=== PATIENT | female | born 1955 | race Caucasian/White ===

== ENCOUNTER 2018-12-29 05:19 | Inpatient (IN) ==
--- NOTE | 2018-12-18 14:22 | PAT Medication Instructions ---
Medication Instructions Date of Service December 18, 2018 Home Medications bupropion HCl 150 mg PO QAM cholecalciferol (vitamin D3) [Vitamin D3] 5,000 unit PO QAM fluoxetine 60 mg PO HS gabapentin 300 mg PO QAM gabapentin 600 mg PO QPM hydrochlorothiazide 12.5 mg PO QAM hydroxychloroquine 400 mg PO QAM levothyroxine 75 mcg PO QAM lisinopril 10 mg PO QAM loratadine 10 mg PO QAM montelukast 10 mg PO QPM multivitamin 2 tab PO QAM omeprazole 20 mg PO QAM ASK your prescriber and surgeon hydroxychloroquine 400 mg PO QAM DO NOT take the morning of surgery cholecalciferol (vitamin D3) [Vitamin D3] 5,000 unit PO QAM hydrochlorothiazide 12.5 mg PO QAM lisinopril 10 mg PO QAM loratadine 10 mg PO QAM multivitamin 2 tab PO QAM Take morning of surgery With a small sip of water, OTHERWISE NOTHING TO EAT OR DRINK AFTER MIDNIGHT: bupropion HCl 150 mg PO QAM gabapentin 300 mg PO QAM levothyroxine 75 mcg PO QAM omeprazole 20 mg PO QAM Take evening before surgery fluoxetine 60 mg PO HS gabapentin 600 mg PO QPM loratadine 10 mg PO QAM montelukast 10 mg PO QPM Other Notes If you have any questions please call us at [phone] or [phone] or [phone] or [phone]
--- NOTE | 2018-12-18 14:25 | Anesthesiology Consultation ---
Date of Service December 18, 2018 Assessment & Plan (1) Encounter for pre-operative examination: Hx novocaine (procaine) reaction: shaking and increased peeing with novacaine after dental work. Patient subsequently had carbocaine (Mepivacaine) with dental procedures without issues. Discussed with Dr. Estrada/patient regarding option of allergy testing for further information- decision for no allergy testing prior to surgery. Discussed SAB vs. GA. Chart Review Chart Review: Patient seen in Pre Admission Testing Teaching & Discussion Pre-Anesthesia Teaching/Discussion Notes: Instructed NPO after midnight before surgery,except medications with 15 cc of water. Medication instructions provided according to the PAT guidelines. History Surgery Operation Date: 12/29/18 12:30 Proposed Procedures p Right Total Hip Replacement - Honorio Isidro MD Height/Weight Height: 5 ft 4 in Weight: 119.7 kg Allergies Allergy/AdvReac Type Severity Reaction Status Date / Time NSAIDS (Non-Steroidal Allergy Severe advised to Verified 12/18/18 14:27 Anti-Inflamma avoid d/t kidney disease adhesive Allergy Mild Rash Verified 12/07/18 08:14 latex Allergy Mild skin Verified 12/18/18 14:27 irritation nickel Allergy Mild redness Verified 12/18/18 14:27 and puffiness procaine Allergy Unknown shaking Verified 12/18/18 14:27 and increased peeing with novacaine aspirin AdvReac Mild Gastrointestinal Verified 12/07/18 08:14 Upset clarithromycin AdvReac Mild abdominal Verified 12/07/18 08:14 discomfort codeine AdvReac Unknown stomach Verified 12/18/18 14:27 burning, nervous Medications Home Medications Medication Instructions Recorded Confirmed Last Taken bupropion HCl 150 mg PO QAM 08/08/18 12/07/18 10/05/18 06:45 cholecalciferol (vitamin D3) 5,000 unit PO QAM 08/08/18 12/07/18 10/05/18 06:45 [Vitamin D3] fluoxetine 60 mg PO HS 08/08/18 12/07/18 10/04/18 22:00 gabapentin 300 mg PO QAM 08/08/18 12/07/18 10/05/18 06:45 gabapentin 600 mg PO QPM 08/08/18 12/07/18 10/04/18 22:00 hydrochlorothiazide 12.5 mg PO QAM 08/08/18 12/07/18 10/05/18 06:45 hydroxychloroquine 400 mg PO QAM 08/08/18 12/07/18 10/05/18 06:45 levothyroxine 75 mcg PO QAM 08/08/18 12/07/18 10/05/18 06:45 lisinopril 10 mg PO QAM 08/08/18 12/07/18 10/05/18 06:45 loratadine 10 mg PO QAM 08/08/18 12/07/18 10/05/18 06:45 montelukast 10 mg PO QPM 08/08/18 12/07/18 10/05/18 06:45 multivitamin 2 tab PO QAM 09/21/18 12/07/18 10/04/18 10:00 omeprazole 20 mg PO QAM 12/07/18 12/07/18 Unknown Past Medical History Medical History Asthma stable; no inhalers Depression GERD (gastroesophageal reflux disease) occasional Gastritis 09/2018 - started on PPI Hypertension Hypothyroidism Kidney disease, chronic, stage IV (GFR 15-29 ml/min) under surveillance; not on dialysis Morbid obesity Polymyalgia rheumatica on hydroxychloroquine Exercise / Class Metabolic Activity III < 4 Walking/Shop/Light housework Past Family History Family History Other Family history not known due to adoption Past Surgical History Surgical History History of appendectomy History of cholecystectomy History of colonoscopy History of dental surgery dental implants History of endometrial ablation History of esophagogastroduodenoscopy (EGD) History of laparoscopy multiple--endometriosis History of nasal polypectomy x2 History of phacoemulsification of cataract of both eyes with intraocular lens implantation History of removal of cyst LEFT FOOT History of right oophorectomy History of tonsillectomy History of total left knee replacement (TKR) x2 History of total right knee replacement (TKR) History of wisdom tooth extraction Past Anesthesia History No Family Hx of Anesthesia Complications (Limited family history knowledge) and Other "Slow to wake"; no known hx reintubation History of PONV No Hx of PONV and Hx of Motion Sickness (occasional) Social History Smoking Status: Former smoker Do You Dip or Chew Tobacco: No Smoking End Date: 1974 Hx Alcohol Use: Yes Alcohol type: other alcohol intake frequency: holidays/special occasions only Hx Substance Use: No substance use type: does not use Review of Systems Occasional reflux. Patient denies chest pain, shortness of breath, cough, wh eezing, palpitations. Physical Exam Vital Signs VITALS BP 123/94 P 57 TEMP 98.1 SP02 95%RA RESP 16 PHYSICAL Full neck and c-spine range of motion. Full TMJ range of motion. TMD 3.5 finger breaths Mallampati Score 2 Dentition: intact, several crowns all over Lungs: clear throughout to auscultation Cardiac: regular rate and rhythm, no murmurs noted Spine: normal Carotid arteries: negative bruit Extremities: no edema Testing Laboratory Results 12/18/18 15:00 PT 10.1 Seconds (9.0-12.0) 12/18/18 15:00 INR 1.0 (0.9-1.1) 12/18/18 15:00 APTT 26.3 Seconds (21.0-31.0) 12/18/18 15:00 Electrocardiogram Date: 08/08/18 SB with occasional PVC's at 54bpm. Otherwise "normal" EKG. Chest X-Ray Date: 08/08/18 Findings: + NAD
[2018-12-18 15:27] LABS: Basophils # (auto) 0.03 K/uL (0-0.2); Basophils % (auto) 0.6 %; Eosinophils # (auto) 0.15 K/uL (0-0.5); Hematocrit (blood only) 32.6 % (37-47); Hemoglobin 10.6 g/dL (12.0-16.0); Immature Granulocytes # (auto) 0.01 K/uL (0.00-0.02); Immature Granulocytes % (auto) 0.2 %; Lymphocytes # (auto) 1.44 K/uL (1.2-3.4); Mean Corpuscular Hemoglobin 27.9 pg (25-34); Mean Corpuscular Hgb Conc 32.5 g/dL (32-36); Mean Corpuscular Volume 85.8 fL (80-100); Monocytes # (auto) 0.33 K/uL (0.11-0.59); Monocytes % (auto) 6.7 %; Neutrophils % (auto) 60.5 %; Platelet Count 202 K/uL (130-400); RDW Coefficient of Variation 15.1 % (11.5-14.5); RDW Standard Deviation 47.6 fL (36.4-46.3); White Blood Count 4.96 K/uL (4.8-10.8)
[2018-12-18 15:37] LABS: Partial Thromboplastin Time 26.3 Seconds (21.0-31.0); Prothrombin Time 10.1 Seconds (9.0-12.0)
[2018-12-18 16:45] LABS: BUN Creatinine Ratio 11.7 (10-20); C Reactive Protein 0.65 mg/dl (0-0.29); Calcium 9.4 mg/dl (8.5-10.1); Est GFR (African American) 45.8; Est GFR (Non-African American) 39.5; Potassium 3.9 mmol/L (3.5-5.1)
--- NOTE | 2018-12-27 08:52 | History and Physical Report ---
DATE OF ADMISSION: 12/29/2018 CHIEF COMPLAINT: Right hip and thigh pain. HISTORY OF PRESENT ILLNESS: This is a 63-year-old female referred by my partner, Dr. Rocha, for surgical treatment of her right hip. She has a 1-year history of gradually increasing right hip pain and discomfort. It got bad enough about 5 months ago that she went to the Emergency Room for evaluation and treatment. She followed up with her primary care doctor. X-rays showed advanced hip arthritis. She continued to have persistent progressive groin and thigh pain. It hurts her all the time. The more she walks, the more it hurts. She limps more as the day goes on. She has difficulty putting her shoes and socks on. She now would like to proceed with surgical treatment. PAST MEDICAL HISTORY: Significant for: 1. Polymyalgia rheumatica. 2. Obesity with BMI of 45. 3. Depression. 4. Asthma. 5. Hypothyroidism. 6. Stage IV kidney disease with a creatinine of 1.41. PAST SURGICAL HISTORY: Includes: 1. Left knee replacement done in 2006 and revision in 2008 from a fall. 2. Right knee replacement done in 2007. 3. Tonsillectomy. 4. Oophorectomy. 5. Cholecystectomy. 6. Appendectomy. 7. Laparoscopy. 8. Uterine ablation. 9. Nose surgery. ALLERGIES: ASPIRIN, WHICH CAUSES GI UPSET. ALSO DESCRIBES ALLERGIES TO CODEINE, BIAXIN, NOVOCAIN, AND NSAIDS DUE TO HER KIDNEY DISEASE - NOT A TRUE ALLERGY. SHE ALSO REPORTS SOME NICKEL ALLERGY. CURRENT MEDICINES: Include: 1. Claritin 10 mg. 2. Fluoxetine 20 mg 3 times a day. 3. Gabapentin 300 mg 3 times a day. 4. Hydroxychloroquine 200 mg twice a day. 5. Levothyroxine 75 mcg a day. 6. Lisinopril 10 mg a day. 7. Multivitamin. 8. Singulair 10 mg. 9. Wellbutrin 150 mg. 10. Omeprazole 20 mg. 11. Vitamin D3. 12. Tylenol. 13. Hydrochlorothiazide 12.5 mg a day. SOCIAL HISTORY: A 63-year-old female. She is . She does have a boyfriend who is apparently blind. Rare alcohol intake. Two children. FAMILY HISTORY: Noncontributory. REVIEW OF HISTORY: Negative for diabetes, neurologic problem, vascular problem, bleeding disorders. Denies any chest pain or shortness of breath. No history of DVT or PE. Does have this unspecified kidney disease with an elevated creatinine. PHYSICAL EXAMINATION: GENERAL: Shows a pleasant obese middle-aged female. Looks to be in reasonably good health. HEENT: Benign. NECK: Supple, no lymphadenopathy. LUNGS: Clear to auscultation. HEART: Has a regular rate and rhythm. ABDOMEN: Soft, nontender, nondistended. EXTREMITIES: Grossly neurovascularly intact except as follows: Examination of the right hip reveals patient walks with a slightly antalgic gait. Leg lengths appear clinically pretty equal. She has well-healed incisions around her knees. She does have significant pain with hip motion. She can internally rotate to neutral, which causes pain. External rotation to 25 degrees. Negative straight leg raise. X-RAYS: X-rays of the right hip were reviewed. It show advanced right hip DJD. She has complete loss of her superior joint space. Not a lot of osteophyte formation. There is some subchondral sclerosis. ASSESSMENT: A 63-year-old female with history of bilateral knee replacements in the past with advanced right hip degenerative joint disease. It has gotten significantly worse over the past year. She would like to have her hip fixed. PLAN: We are going to take her to the operating room and do right total hip replacement. The risks and benefits of this procedure were explained to the patient including but not limited to DVT, PE, , infection, neurological injury, vascular injury, bleeding problem, pain, limited range of motion, stiffness, failure to relieve her symptoms, incomplete relief of symptoms, need for further surgery in the future, fracture, leg length inequality, nerve palsy, persistent pain, etc. The patient understands and desires to proceed. Informed consent was obtained. She does have this history of polymyalgia rheumatica. We did talk about holding her lisinopril on the morning of surgery. SHE HAS A NICKEL ALLERGY and we will use implants that do not have any nickel. As far as discharge plans, she will likely need to be discharged to either rehab or custodial facility. She does have a boyfriend, but he is blind and will not be able to help her adequately. As far as DVT prophylaxis, we are going to plan on using Xarelto due to her kidney disease and limited ability to use aspirin.
[2018-12-29] MEDS ORDERED: FAMOTIDINE 20 MG TAB PO SCH (06:00)
[2018-12-29] MEDS ORDERED: METOCLOPRAMIDE HCL 10 MG TABLET PO SCH (06:00)
[2018-12-29] MEDS ORDERED: SCOPOLAMINE 1.5 MG TDSY TD SCH (06:00)
[2018-12-29] MEDS ORDERED: GABAPENTIN 300 MG CAP PO SCH (06:00)
[2018-12-29] MEDS ORDERED: LR 60ML/HR IV SCH (06:00)
[2018-12-29] MEDS ORDERED: TRANEXAMIC ACID 1,000 MG **IV Pre-op IV SCH (06:00)
[2018-12-29] MEDS ORDERED: CEFAZOLIN 2000MG 2,000 MG/15 ML SYR IV SCH (06:00)
[2018-12-29] MEDS ORDERED: ACETAMINOPHEN 500 MG TAB PO SCH (06:00)
[2018-12-29] MEDS ORDERED: BUPIVACAINE 0.5 % 5 MG/1 ML PF 10ML VIAL ONE (06:23)
[2018-12-29] MEDS ORDERED: fentaNYL citrate 100 MCG/2 ML VIAL ONE (06:27)
[2018-12-29] MEDS ORDERED: MIDAZOLAM HCL 1 MG/ML 2ML VIAL ONE (06:27)
[2018-12-29] MEDS ORDERED: LIDOCAINE HCL 2% 2 ML VIAL/AMP(20MG/ML) INFIL ONE (06:31)
[2018-12-29] MEDS ORDERED: BACITRACIN INJ 50,000 UNIT VIAL ONE (06:34)
[2018-12-29] MEDS ORDERED: BUPIVACAINE/EPINEPHRINE 0.5% MPF 1:200,000 30 ML VIAL ONE (06:34)
[2018-12-29] MEDS ORDERED: MoRPHine SULFATE PF 1 MG/ML 10 ML AMP/VIAL ONE (06:44)
[2018-12-29] MEDS ORDERED: NALOXONE HCL 0.08 MG in SYRINGE 1.8 ML IV PRN (06:53)
[2018-12-29] MEDS ORDERED: NALOXONE HCL 0.4 MG/1 ML VIAL/CARP IV PRN ×2 (06:53→10:24)
[2018-12-29] MEDS ORDERED: MoRPHine SULFATE PF 1 MG/ML 10 ML AMP/VIAL INT SPINAL ONE (06:53)
[2018-12-29] MEDS ORDERED: DiphenhydrAMINE HCL 50 MG/ML VIAL IV PRN (06:53)
[2018-12-29] MEDS ORDERED: NALBUPHINE HCL INJ 10 MG/ML AMP IV PRN (06:53)
[2018-12-29] MEDS ORDERED: MEPERIDINE HCL 25 MG/ML CARP IV PRN (06:53)
[2018-12-29] MEDS ORDERED: LACTATED RINGER'S 500 ML IV PRN (06:53)
[2018-12-29] MEDS ORDERED: MoRPHine SULFATE 2 MG/ML CARP IV PRN (06:53)
[2018-12-29] MEDS ORDERED: NALOXONE HCL 1 MG in SODIUM CHLORIDE 0.9% 1000ML 1,000 ML IV PRN (06:53)
[2018-12-29] MEDS ORDERED: ONDANSETRON INJ 2 MG/ML 2 ML VIAL IV PRN (06:53)
[2018-12-29] MEDS ORDERED: ePHEDrine sulfate 50 MG/ML AMP IV PRN ×2 (06:53→06:59)
--- NOTE | 2018-12-29 06:55 | History & Physical Bridge Note ---
Date of Service December 29, 2018 History & Physical Bridge Note I have examined the patient, reviewed the History & Physical and in the interval since the performance of the History & Physical I have noted the following changes of clinical significance: no changes noted
[2018-12-29] MEDS ORDERED: ATROPINE SULFATE 0.1 MG/ML 10ML SYR IV PRN (06:59)
[2018-12-29] MEDS ORDERED: NO NARCOTICS OR SEDATIVES SCH (07:00)
[2018-12-29] MEDS ORDERED: SODIUM CHLORIDE 0.9% 1000ML 1,000 ML IV SCH (07:00)
[2018-12-29] MEDS ORDERED: DC INTRASPINAL MORPHINE SCH (07:00)
[2018-12-29] MEDS ORDERED: ONDANSETRON INJ 2 MG/ML 2 ML VIAL ONE (07:29)
[2018-12-29] MEDS ORDERED: ePHEDrine sulfate 50 MG/ML SYR ONE (07:30)
[2018-12-29] MEDS ORDERED: PROPOFOL IV EMULSION 10 MG/ML 20 ML VIAL IV ONE ×3 (08:10)
--- NOTE | 2018-12-29 08:52 | Post Operative Brief Note ---
PG Immediate Post Op with CF Date of Surgery December 29, 2018 Pre & Post Diagnosis Operation Date: 12/29/18 07:00 Pre-Op Diagnosis: Right Hip Advanced Degenerative Joint Disease Post-Op Diagnosis: Right Hip Advanced Degenerative Joint Disease Procedure Operation Date: 12/29/18 07:00 Actual Procedures p Right Total Hip Arthroplasty--Uncemented(Right) - Honorio Isidro MD Surgeon Honorio Isidro MD Residential Support Worker [place], PAC Estimated Blood Loss 300 Findings Consistent with Post-Op Diagnosis Fluids 1000 cc Specimens Specimen Description: A. Right Femoral Head Drains Ontiveros Catheter (A 16 Lao Latex-Free ontiveros catheter was inserted by ALEXA Smith, without difficulty, clear yellow urine obtained, output to be monitored by Anesthesia.) Anesthesia Type Spinal MAC Complications none Disposition Accompanied Patient To Recovery: Yes Disposition: Recovery Room
--- NOTE | 2018-12-29 09:17 | Operative Report ---
DATE OF OPERATION: 12/29/2018 SURGEON: Honorio Isidro MD. EXTRUDER TENDER: ALEXA Gonzalez. PREOPERATIVE DIAGNOSIS: Right hip degenerative joint disease. POSTOPERATIVE DIAGNOSIS: Right hip degenerative joint disease. PROCEDURE PERFORMED: Right uncemented ceramic on highly cross-linked polyethylene total hip arthroplasty. COMPLICATIONS: None. ESTIMATED BLOOD LOSS: 300 mL. FLUID REPLACEMENT: 1000 mL crystalloid fluid replacement. ANESTHESIA: Spinal. DRAINS: None. SPECIMENS: Right femoral head sent for pathology. OPERATIVE INDICATIONS: The patient is a 63-year-old morbidly obese female with a BMI of 45 who has had a 1 year history of increasing right hip pain and discomfort that has been unresponsive to conservative care. It has gotten gradually worse over time. X-rays show progressive right hip arthritis. She elected to proceed with total hip arthroplasty. OPERATIVE FINDINGS: Revealed advanced right hip DJD. She had grade 4 [id number] disease of the femoral head and acetabulum. She had a very large soft tissue envelope. Moderate-sized joint effusion. OPERATIVE IMPLANTS: Consisted of: 1. Biomet G7 size 50 mm acetabular shell. 2. 6.5 cancellous acetabular screws, one at 35 mm length and one at 25 mm length. 3. An apex hole eliminator. 4. Highly cross-linked polyethylene liner with a 50 mm outer diameter and 32 mm inner diameter. 5. DePuy Corail size 10 KLA femoral stem. 6. A +5/32 mm ceramic articular ball. OPERATIVE PROCEDURE: The patient was taken to the operating room, identified and placed on the operating table in supine position. All contact areas were appropriately padded. IV antibiotics were provided by anesthesia team. Spinal anesthetic had been implemented in the holding area. Goodman catheter was placed in sterile fashion. The patient was then placed in the left lateral decubitus position. An axillary roll was placed. Stlberg hip positioner was used for positioning. The right hip and leg were then prepped and draped in usual sterile fashion. A posterolateral approach to the right hip was then performed through a curvilinear incision centered over the greater trochanter. Sharp dissection was carried through the subcutaneous tissues down to the level of the IT band and gluteal fascia. She had a very thick soft tissue envelope about 5-6 inches thick. The IT band and gluteal fascia were then incised longitudinally in line with skin incision. The underlying greater trochanteric bursa was excised. The piriformis and external rotators were tagged and taken off the posterior aspect of the hip joint capsule. A posterior capsulotomy was then performed leaving a large flap for later repair. Hip was internally rotated and dislocated. Femoral neck osteotomy cut was made with final cut about 1 cm above the lesser trochanter. Femoral head was removed and sent for pathology. The femur was retracted anteriorly. Attention was then drawn to the acetabulum. The acetabulum labrum was excised. The pulvinar fat was excised. Sequential reaming of the acetabulum was then performed beginning with size 45 and progressing up to 49. I did just make the entrance with a 50 acetabular reamer to be able to get the cup in. A 50 mm Biomet G7 acetabular shell was then placed in about 40 degrees of lateral opening and 20 degrees of anteversion. We used the offset industrial hire sales assistant in order to get adequate anteversion and appropriate lateral opening. The cup was then fixed with two 6.5 cancellous acetabular screws. An anterior osteophyte was removed. A trial liner was placed. Attention was then drawn to the femur. The proximal femur was entered with a cookie cutter followed by canal finder. I then broached beginning with a size 8 and progressing up to a 10. We got good fit at 10. I then used a calcar reamer to smooth off the calcar. We then trialed the hip and the +5 articular ball provided full stability and full extension and external rotation and flexion to 90 degrees, internal rotation to about 60-[address] I elected to place these implants. All trial implants were removed. An apex hole eliminator was placed. Highly cross-linked polyethylene liner was placed. A DePuy Corail size 10 KLA femoral stem was impacted in position. A +5/32 mm ceramic articular ball was placed. Hip was located and once again found to be stable. Attention was then drawn toward closing. The wound was irrigated with copious amounts of pulsatile lavage solution. I did inject locally with 60 mL of 0.5% Marcaine with epinephrine. The posterior capsule and external rotators were then repaired through drill holes and the posterior trochanter with #2 TiCron suture. The IT band and gluteal fascia were then closed with #1 PDS suture in running fashion. Subcutaneous tissue was then closed with 2 layers with the deep layer #2 Vicryl suture and subcutaneous tissues with 2-0 Dexon suture in a buried interrupted fashion. Skin was closed with skin chava. Leg was then cleaned, dried and a sterile dressing of Xeroform, 4 x 4, sterile ABD pad and foam tape was applied. The patient was then transferred to the recovery room in stable condition. The patient tolerated the procedure well with no complication. All needle and sponge counts were correct at the end of the operation. I attest to the content of the Intraoperative Record and any orders documented therein. Any exception s are noted below.
--- NOTE | 2018-12-29 09:45 | XRay Report ---
AP PELVIS, CROSSTABLE LATERAL RIGHT HIP History: Right total hip arthroplasty. Degenerative arthritis. Postop. FINDINGS: The patient is status post a right total hip arthroplasty. The hardware is intact. No fract ure or dislocation. Skin chava and surgical drains are in place. IMPRESSION: Right total hip arthroplasty. No evidence for hardware complication Electronically signed by: Khai Noland M.D. 12/29/2018 9:44 AM
[2018-12-29] MEDS ORDERED: NO NSAIDS SCH (10:24)
[2018-12-29] MEDS ORDERED: METOCLOPRAMIDE HCL INJ 5 MG/ML 2 ML VIAL IV PRN (10:24)
[2018-12-29] MEDS ORDERED: BISACODYL 10 MG SUPP PR PRN (10:24)
[2018-12-29] MEDS ORDERED: ALUMINUM/MAGNESIUM SUSP 30 ML UDC PO PRN (10:24)
[2018-12-29] MEDS ORDERED: MAGNESIUM HYDROXIDE SUSP 30 ML UDC PO PRN (10:24)
[2018-12-29] MEDS ORDERED: MULTIVITAMIN TAB PO SCH (10:24)
[2018-12-29] MEDS: LORATADINE 10 MG TAB PO SCH (12:33)
[2018-12-29] MEDS: DOCUSATE SODIUM 100 MG CAP PO SCH ×2 (12:33→20:58)
[2018-12-29] MEDS: PANTOprazole 40 MG TAB PO SCH (12:34)
[2018-12-29] MEDS: MULTIVITAMIN TAB PO SCH (12:34)
[2018-12-29] MEDS: CHOLECALCIFEROL 1,000 UNITS TAB PO SCH (12:34)
[2018-12-29] MEDS: LEVOTHYROXINE SODIUM 75 MCG TABLET PO SCH (13:08)
[2018-12-29] MEDS: BuPROPion SR 150 MG TABCR PO SCH (13:08)
[2018-12-29] MEDS: SODIUM CHLORIDE 0.9% 1000ML 1,000 ML IV SCH ×2 (13:09→19:56)
[2018-12-29] MEDS: ACETAMINOPHEN 500 MG TAB PO SCH ×4 (13:12→21:01)
[2018-12-29] MEDS: HYDROXYCHLOROQUINE SULFATE 200 MG TAB PO SCH (13:12)
[2018-12-29] MEDS: hydroCHLOROthiazide 25 MG TAB PO SCH (13:13)
[2018-12-29] MEDS: CEFAZOLIN 2000MG 2,000 MG/15 ML SYR IV SCH ×2 (14:06→21:23)
[2018-12-29] MEDS: LISINOPRIL 10 MG TAB PO SCH (14:06)
--- NOTE | 2018-12-29 14:16 | Progress Note ---
DATE: 12/29/2018 SUBJECTIVE: A 63-year-old female postop from a right hip replacement. She is doing pretty well. Not having any pain yet. No chest pain or shortness of breath. Not feeling dizzy or lightheaded. OBJECTIVE: VITAL SIGNS: Temperature 36.3. Vital signs stable. GENERAL: Shows a pleasant, middle-aged female. She is sitting up in bed and talking to family. LUNGS: Clear to auscultation. HEART: Has a regular rate and rhythm. ABDOMEN: Soft, nontender, nondistended. EXTREMITIES: Grossly neurovascularly intact except as follows: Examination of the right hip and leg reveals the dressing to be clean, dry and intact. Her leg lengths are equal. Hip is located. She can dorsiflex and plantarflex her foot appropriately. She is neurologically intact. X-RAYS: X-rays of the right hip from recovery room are reviewed. She has a right uncemented total hip replacement. Components looked to be in good position. No signs of problems. ASSESSMENT: A 63-year-old white female postoperative from right hip replacement, doing well. Pain is controlled. Hip is located. She is neurologically intact. PLAN: 1. DVT prophylaxis with thigh high TEDs, SCDs, and we are going to start Xarelto 24 hours postop due to her ASPIRIN ALLERGY and altered kidney function. 2. PT/OT. Weight bear as tolerated. Right total hip protocol. 3. Pain control, doing well with current pain regimen. 4. IV antibiotics x24 hours. 5. Disposition: Plan to discharge. We will see how she does in rehab. She does not have a real good social situation, I think she is best to go to a rehab or a penitentiary facility. We will see how she is getting around and what arrangements they can make whether she goes home with home health.
[2018-12-29] MEDS ORDERED: TRANEXAMIC ACID 1,000 MG in 0.9 % SODIUM CHLORIDE 100 ML IV SCH (15:00)
--- NOTE | 2018-12-29 15:15 | Anesthesiology Progress Note ---
Date of Service December 29, 2018 Anesthesia Post Procedure Vital Signs Vital Signs: Temp Pulse Pulse Resp BP Pulse Ox Pulse Ox 12/29/18 14:04 18 100 12/29/18 13:15 61 18 109/64 12/29/18 13:00 16 12/29/18 12:13 57 L 16 107/66 12/29/18 11:49 14 12/29/18 11:19 55 L 16 128/68 12/29/18 10:46 54 L 16 112/65 12/29/18 10:15 36.3 C L 55 L 12 105/68 100 12/29/18 09:55 36.2 C L 59 L 13 124/53 L 12/29/18 09:45 36.1 C L 57 L 13 140/60 12/29/18 09:35 57 L 15 140/60 12/29/18 09:25 60 12 136/57 L 12/29/18 09:15 64 13 130/54 L 12/29/18 09:05 67 14 127/61 12/29/18 08:55 36.3 C L 68 13 108/73 12/29/18 05:57 37.1 C 65 18 141/67 H 97 Pain Intensity Right Hip: Pain Intensity: 0 Transfer of Care Handoff Completed per policy Notes Mental Status: alert / awake / arousable and participated in evaluation Patient Amnestic to Procedure: Yes Nausea / Vomiting: adequately controlled Pain: adequately controlled Airway Patency, RR, SpO2: stable & adequate BP & HR: stable & adequate Hydration State: stable & adequate Neuraxial Anesthesia: was administered and sensory block is resolving Anesthetic Complications: no major complications apparent and Pt Satisfied with anesthetic care
[2018-12-29] MEDS: CHECK SCOPOLAMINE PATCH PLACEMENT SCH (15:23)
[2018-12-29] MEDS: FERROUS GLUCONATE 324 MG TAB PO SCH (16:19)
[2018-12-29] MEDS: ASCORBIC ACID 500 MG TAB PO SCH (16:19)
[2018-12-29] MEDS: GABAPENTIN 600 MG TAB PO SCH (20:58)
[2018-12-29] MEDS: SENNA 8.6 MG TAB PO SCH (20:58)
[2018-12-29] MEDS: FLUOXETINE HCL 20 MG CAP PO SCH (20:59)
[2018-12-29] MEDS: MONTELUKAST SODIUM 10 MG TABLET PO SCH (21:00)
[2018-12-30] MEDS: CHECK SCOPOLAMINE PATCH PLACEMENT SCH (00:32)
[2018-12-30] MEDS ORDERED: HYDROmorphone INJ 0.5 MG/0.5 ML SYR IV PRN (00:53)
[2018-12-30] MEDS ORDERED: ONDANSETRON INJ 2 MG/ML 2 ML VIAL IV PRN (00:53)
[2018-12-30] MEDS: OXYCODONE HCL IR 5 MG TAB (IMMEDIATE RELEASE) PO PRN (03:21)
[2018-12-30 05:37] LABS: Basophils # (auto) 0.02 K/uL (0-0.2); Basophils % (auto) 0.2 %; Eosinophils # (auto) 0.01 K/uL (0-0.5); Eosinophils % (auto) 0.1 %; Hematocrit (blood only) 28.4 % (37-47); Hemoglobin 9.2 g/dL (12.0-16.0); Immature Granulocytes # (auto) 0.03 K/uL (0.00-0.02); Immature Granulocytes % (auto) 0.3 %; Lymphocytes # (auto) 1.16 K/uL (1.2-3.4); Lymphocytes % (auto) 11.8 %; Mean Corpuscular Hemoglobin 28.1 pg (25-34); Mean Corpuscular Hgb Conc 32.4 g/dL (32-36); Mean Corpuscular Volume 86.9 fL (80-100); Mean Platelet Volume 10.9 fL (7.4-10.4); Monocytes # (auto) 0.79 K/uL (0.11-0.59); Neutrophils # (auto) 7.82 K/uL (1.4-6.5); Neutrophils % (auto) 79.6 %; Platelet Count 183 K/uL (130-400); RDW Coefficient of Variation 14.5 % (11.5-14.5); Red Blood Count 3.27 M/uL (4.2-5.4); White Blood Count 9.83 K/uL (4.8-10.8)
[2018-12-30] MEDS: ACETAMINOPHEN 500 MG TAB PO SCH ×3 (05:38→21:34)
[2018-12-30] MEDS: LEVOTHYROXINE SODIUM 75 MCG TABLET PO SCH (05:39)
[2018-12-30 06:03] LABS: BUN Creatinine Ratio 16.9 (10-20); Calcium 8.7 mg/dl (8.5-10.1); Creatinine Clr Calc Pharmacy 40.7 ml/min; Est GFR (African American) 34.8; Potassium 4.3 mmol/L (3.5-5.1)
--- NOTE | 2018-12-30 08:06 | Anesthesiology Progress Note ---
Date of Service December 30, 2018 Anesthesia Post Procedure Vital Signs Vital Signs: Temp Pulse Pulse Resp BP Pulse Ox Pulse Ox 12/30/18 06:57 37.6 C H 67 18 131/66 98 12/30/18 06:56 18 97 12/30/18 03:16 37.7 C H 77 16 132/67 97 12/30/18 01:30 16 97 12/30/18 00:30 16 96 12/29/18 23:30 16 99 12/29/18 23:27 37.4 C 72 16 121/56 L 99 12/29/18 21:28 16 100 12/29/18 19:23 16 100 12/29/18 18:39 16 99 12/29/18 17:27 16 12/29/18 16:35 16 12/29/18 15:27 18 100 12/29/18 15:24 36.6 C 61 18 172/80 H 12/29/18 14:04 18 12/29/18 13:15 61 18 109/64 12/29/18 13:00 16 12/29/18 12:13 57 L 16 107/66 12/29/18 11:49 14 12/29/18 11:19 55 L 16 128/68 12/29/18 10:46 54 L 16 112/65 12/29/18 10:15 36.3 C L 55 L 12 105/68 100 12/29/18 09:55 36.2 C L 59 L 13 124/53 L 12/29/18 09:45 36.1 C L 57 L 13 140/60 12/29/18 09:35 57 L 15 140/60 12/29/18 09:25 60 12 136/57 L 12/29/18 09:15 64 13 130/54 L 12/29/18 09:05 67 14 127/61 12/29/18 08:55 36.3 C L 68 13 108/73 100 Pain Intensity Right Hip: Pain Intensity: 3 Notes Mental Status: alert / awake / arousable and participated in evaluation Patient Amnestic to Procedure: Yes Nausea / Vomiting: adequately controlled Pain: adequately controlled Airway Patency, RR, SpO2: stable & adequate Hydration State: stable & adequate Neuraxial Anesthesia: was administered and sensory block is resolving Anesthetic Complications: no major complications apparent and Pt Satisfied with anesthetic care
[2018-12-30] MEDS: PANTOprazole 40 MG TAB PO SCH (08:52)
[2018-12-30] MEDS: LORATADINE 10 MG TAB PO SCH (08:53)
[2018-12-30] MEDS: FERROUS GLUCONATE 324 MG TAB PO SCH ×2 (08:53→18:51)
[2018-12-30] MEDS: DOCUSATE SODIUM 100 MG CAP PO SCH ×2 (08:53→21:34)
[2018-12-30] MEDS: CHOLECALCIFEROL 1,000 UNITS TAB PO SCH (08:54)
[2018-12-30] MEDS: GABAPENTIN 300 MG CAP PO SCH (08:54)
[2018-12-30] MEDS: MULTIVITAMIN TAB PO SCH (08:54)
[2018-12-30] MEDS: hydroCHLOROthiazide 25 MG TAB PO SCH (08:55)
[2018-12-30] MEDS: RIVAROXABAN 10 MG TABLET PO SCH (08:55)
[2018-12-30] MEDS: HYDROXYCHLOROQUINE SULFATE 200 MG TAB PO SCH (08:56)
[2018-12-30] MEDS: LISINOPRIL 10 MG TAB PO SCH (08:56)
[2018-12-30] MEDS: BuPROPion SR 150 MG TABCR PO SCH (08:56)
[2018-12-30] MEDS: ASCORBIC ACID 500 MG TAB PO SCH ×2 (08:57→18:51)
[2018-12-30] MEDS: TAPENTADOL HCL ER 50 MG TABCR PO SCH ×2 (08:58→21:33)
--- NOTE | 2018-12-30 15:35 | Progress Note ---
DATE: 12/30/2018 SUBJECTIVE: A 63-year-old female postop day #1 from right hip replacement. She is doing reasonably well. A bit more painful today. Therapy went okay, but realizes she needs some help. No chest pain or shortness of breath. Not feeling dizzy or lightheaded. OBJECTIVE: VITAL SIGNS: Temperature 36.7. Vital signs stable. GENERAL: Shows a pleasant, middle-aged female. She is sitting up in her bedside chair, looks pretty comfortable. EXTREMITIES: Examination of the right hip reveals the leg lengths to be equal. Dressing is clean, dry and intact. Thigh is soft and supple. She is neurologically intact. LABORATORY DATA: Hemoglobin 9.2. Hematocrit 28.4. Electrolytes are relatively stable. Creatinine is slightly elevated at 1.77 with some chronic renal insufficiency. ASSESSMENT: A 63-year-old female postop day #1 from right hip replacement, doing pretty well. Pain has been reasonably well controlled. I think she is realizing she is going to need some help and likely need to go to rehab or shelter facility. Creatinine is a little bit elevated, but she has some underlying renal insufficiency. She is anemic, but without symptoms. PLAN: 1. DVT prophylaxis including thigh-high TEDs, SCDs, and Xarelto for 1 month. 2. PT/OT. Weight bear as tolerated. Right total hip protocol. 3. Pain control, doing okay with current pain regimen. 4. Anemia. She is asymptomatic. Will continue iron supplementation. 5. Disposition: She is going to likely need a rehab or shelter facility to stay. Social service is working on that.
[2018-12-30] MEDS: GABAPENTIN 600 MG TAB PO SCH (21:34)
[2018-12-30] MEDS: SENNA 8.6 MG TAB PO SCH (21:34)
[2018-12-30] MEDS: FLUOXETINE HCL 20 MG CAP PO SCH (21:35)
[2018-12-30] MEDS: MONTELUKAST SODIUM 10 MG TABLET PO SCH (21:36)
[2018-12-31] MEDS: ACETAMINOPHEN 500 MG TAB PO SCH ×3 (05:38→21:35)
[2018-12-31] MEDS: LEVOTHYROXINE SODIUM 75 MCG TABLET PO SCH (05:38)
[2018-12-31 07:07] LABS: Basophils # (auto) 0.02 K/uL (0-0.2); Basophils % (auto) 0.2 %; Eosinophils # (auto) 0.01 K/uL (0-0.5); Eosinophils % (auto) 0.1 %; Hematocrit (blood only) 27.1 % (37-47); Hemoglobin 8.8 g/dL (12.0-16.0); Immature Granulocytes # (auto) 0.03 K/uL (0.00-0.02); Immature Granulocytes % (auto) 0.3 %; Lymphocytes # (auto) 0.87 K/uL (1.2-3.4); Lymphocytes % (auto) 7.9 %; Mean Corpuscular Hemoglobin 27.7 pg (25-34); Mean Corpuscular Hgb Conc 32.5 g/dL (32-36); Mean Corpuscular Volume 85.2 fL (80-100); Monocytes # (auto) 1.09 K/uL (0.11-0.59); Monocytes % (auto) 9.9 %; Neutrophils # (auto) 8.98 K/uL (1.4-6.5); Neutrophils % (auto) 81.6 %; Platelet Count 158 K/uL (130-400); RDW Coefficient of Variation 14.2 % (11.5-14.5); RDW Standard Deviation 44.9 fL (36.4-46.3); Red Blood Count 3.18 M/uL (4.2-5.4)
[2018-12-31 07:35] LABS: BUN Creatinine Ratio 15.7 (10-20); Calcium 8.9 mg/dl (8.5-10.1); Creatinine Clr Calc Pharmacy 50.7 ml/min; Est GFR (African American) 45.4; Est GFR (Non-African American) 39.2; Potassium 3.8 mmol/L (3.5-5.1)
--- NOTE | 2018-12-31 08:35 | Progress Note ---
DATE: 12/31/2018 SUBJECTIVE: A 63-year-old white female postop day #2 from right hip replacement. Doing a little bit better today. Less pain. Feels just more with it. No chest pain or shortness of breath. Not feeling dizzy or lightheaded. OBJECTIVE: VITAL SIGNS: Temperature 37.6. Vital signs stable. GENERAL: Physical examination shows a pleasant, middle-aged female. She is lying in bed, looks reasonably comfortable. EXTREMITIES: Examination of the right hip and leg reveals the leg lengths to be equal. Hip incision and dressing is clean, dry and intact. Thigh is soft and supple. Hip is located. She is neurologically intact. LABORATORY DATA: Labs are pending. ASSESSMENT: A 63-year-old white female postoperative day #2 from right hip replacement, doing reasonably well. Pain is controlled. She is having trouble mobilizing due to her large size. PLAN: 1. DVT prophylaxis including thigh-high TEDs, SCDs, and Xarelto for a month. 2. PT/OT. Weight bear as tolerated. Right total hip protocol. 3. Pain control, doing pretty well with current pain regimen. 4. Chronic renal insufficiency. Labs are pending. We will encourage p.o. intake and limit NSAIDs. 5. Disposition: She is hoping to go to a penitentiary facility. Social service is working on that.
[2018-12-31] MEDS: MULTIVITAMIN TAB PO SCH (08:58)
[2018-12-31] MEDS: PANTOprazole 40 MG TAB PO SCH (08:58)
[2018-12-31] MEDS: DOCUSATE SODIUM 100 MG CAP PO SCH ×2 (08:59→21:33)
[2018-12-31] MEDS: CHOLECALCIFEROL 1,000 UNITS TAB PO SCH (08:59)
[2018-12-31] MEDS: HYDROXYCHLOROQUINE SULFATE 200 MG TAB PO SCH (09:00)
[2018-12-31] MEDS: BuPROPion SR 150 MG TABCR PO SCH (09:00)
[2018-12-31] MEDS: ASCORBIC ACID 500 MG TAB PO SCH ×2 (09:00→17:25)
[2018-12-31] MEDS: RIVAROXABAN 10 MG TABLET PO SCH (09:00)
[2018-12-31] MEDS: LISINOPRIL 10 MG TAB PO SCH (09:01)
[2018-12-31] MEDS: hydroCHLOROthiazide 25 MG TAB PO SCH (09:01)
[2018-12-31] MEDS: LORATADINE 10 MG TAB PO SCH (09:01)
[2018-12-31] MEDS: FERROUS GLUCONATE 324 MG TAB PO SCH ×2 (09:02→18:08)
[2018-12-31] MEDS: GABAPENTIN 300 MG CAP PO SCH (09:02)
[2018-12-31] MEDS: TAPENTADOL HCL ER 50 MG TABCR PO SCH ×2 (09:06→21:32)
[2018-12-31] MEDS: OXYCODONE HCL IR 5 MG TAB (IMMEDIATE RELEASE) PO PRN (09:06)
[2018-12-31] MEDS: GABAPENTIN 600 MG TAB PO SCH (21:32)
[2018-12-31] MEDS: FLUOXETINE HCL 20 MG CAP PO SCH (21:33)
[2018-12-31] MEDS: SENNA 8.6 MG TAB PO SCH (21:34)
[2018-12-31] MEDS: MONTELUKAST SODIUM 10 MG TABLET PO SCH (21:34)
[2018-12-31] MEDS: MICONAZOLE NITRATE POWDER 43 GM EXT PRN (21:45)
[2019-01-01] MEDS: ACETAMINOPHEN 500 MG TAB PO SCH ×4 (05:20→22:06)
[2019-01-01] MEDS: LEVOTHYROXINE SODIUM 75 MCG TABLET PO SCH (05:20)
[2019-01-01 06:00] LABS: Basophils # (auto) 0.01 K/uL (0-0.2); Basophils % (auto) 0.1 %; Eosinophils # (auto) 0.24 K/uL (0-0.5); Eosinophils % (auto) 2.6 %; Hematocrit (blood only) 25.1 % (37-47); Hemoglobin 8.2 g/dL (12.0-16.0); Immature Granulocytes # (auto) 0.01 K/uL (0.00-0.02); Immature Granulocytes % (auto) 0.1 %; Lymphocytes # (auto) 1.42 K/uL (1.2-3.4); Lymphocytes % (auto) 15.7 %; Mean Corpuscular Hemoglobin 27.8 pg (25-34); Mean Corpuscular Hgb Conc 32.7 g/dL (32-36); Mean Corpuscular Volume 85.1 fL (80-100); Mean Platelet Volume 10.6 fL (7.4-10.4); Monocytes # (auto) 0.76 K/uL (0.11-0.59); Monocytes % (auto) 8.4 %; Neutrophils # (auto) 6.62 K/uL (1.4-6.5); Neutrophils % (auto) 73.1 %; Platelet Count 172 K/uL (130-400); RDW Coefficient of Variation 14.3 % (11.5-14.5); RDW Standard Deviation 44.7 fL (36.4-46.3); Red Blood Count 2.95 M/uL (4.2-5.4); White Blood Count 9.06 K/uL (4.8-10.8)
[2019-01-01] MEDS: LORATADINE 10 MG TAB PO SCH (08:28)
[2019-01-01] MEDS: ASCORBIC ACID 500 MG TAB PO SCH ×2 (08:28→17:47)
[2019-01-01] MEDS: MULTIVITAMIN TAB PO SCH (08:28)
[2019-01-01] MEDS: FERROUS GLUCONATE 324 MG TAB PO SCH ×2 (08:28→17:47)
[2019-01-01] MEDS: hydroCHLOROthiazide 25 MG TAB PO SCH (08:28)
[2019-01-01] MEDS: LISINOPRIL 10 MG TAB PO SCH (08:28)
[2019-01-01] MEDS: GABAPENTIN 300 MG CAP PO SCH (08:28)
[2019-01-01] MEDS: HYDROXYCHLOROQUINE SULFATE 200 MG TAB PO SCH (08:28)
[2019-01-01] MEDS: PANTOprazole 40 MG TAB PO SCH (08:28)
[2019-01-01] MEDS: CHOLECALCIFEROL 1,000 UNITS TAB PO SCH (08:29)
[2019-01-01] MEDS: RIVAROXABAN 10 MG TABLET PO SCH (08:29)
[2019-01-01] MEDS: BuPROPion SR 150 MG TABCR PO SCH (08:29)
[2019-01-01] MEDS: DOCUSATE SODIUM 100 MG CAP PO SCH ×2 (08:29→17:47)
[2019-01-01] MEDS: TAPENTADOL HCL ER 50 MG TABCR PO SCH ×2 (08:34→21:03)
--- NOTE | 2019-01-01 10:44 | Progress Note ---
DATE: 01/01/2019 SUBJECTIVE: A 63-year-old female postop day #3 from a right total hip replacement. She is doing pretty well. Pain is getting a little bit better daily. Function is improving. No chest pain or shortness of breath. Not feeling dizzy or lightheaded. OBJECTIVE: VITAL SIGNS: Temperature 36.9. Vital signs stable. GENERAL: Shows a pleasant, middle-aged female. She is lying in bed, looks pretty comfortable. EXTREMITIES: Examination of the right hip reveals leg lengths were equal. Dressings into place. A little bit of bloody drainage on it. Hip is located. She is neurologically intact. Thigh is soft and supple. LABORATORY DATA: Hemoglobin 8.2. Hematocrit 25.1. Electrolytes are stable. Creatinine is actually improved. ASSESSMENT: A 63-year-old female postop day #3 from a right total hip replacement, doing reasonably well. Pain is controlled. She is anemic, but without symptoms. PLAN: 1. DVT prophylaxis including thigh-high TEDs, SCDs, and Xarelto for 1 month. 2. PT/OT. She can weightbear as tolerated. Right total hip protocol. 3. Pain control, doing well with current pain regimen. 4. Anemia. She is currently asymptomatic. Continue iron supplementation. 5. Disposition: We are just waiting for placement. Hopefully get her to a rehab or long term facility today.
[2019-01-01] MEDS ORDERED: Nursing to Pharmacy Communication ONE (14:29)
[2019-01-01] MEDS: SENNA 8.6 MG TAB PO SCH (17:47)
[2019-01-01] MEDS: FLUOXETINE HCL 20 MG CAP PO SCH (21:03)
[2019-01-01] MEDS: MONTELUKAST SODIUM 10 MG TABLET PO SCH (21:03)
[2019-01-01] MEDS: GABAPENTIN 600 MG TAB PO SCH (21:03)
[2019-01-02] MEDS: LEVOTHYROXINE SODIUM 75 MCG TABLET PO SCH (05:53)
[2019-01-02] MEDS: ACETAMINOPHEN 500 MG TAB PO SCH ×3 (05:53→22:10)
[2019-01-02 05:57] LABS: Basophils # (auto) 0.01 K/uL (0-0.2); Basophils % (auto) 0.1 %; Eosinophils # (auto) 0.34 K/uL (0-0.5); Eosinophils % (auto) 5.1 %; Hematocrit (blood only) 24.1 % (37-47); Hemoglobin 7.9 g/dL (12.0-16.0); Immature Granulocytes # (auto) 0.02 K/uL (0.00-0.02); Immature Granulocytes % (auto) 0.3 %; Lymphocytes # (auto) 1.57 K/uL (1.2-3.4); Lymphocytes % (auto) 23.4 %; Mean Corpuscular Hgb Conc 32.8 g/dL (32-36); Mean Corpuscular Volume 85.5 fL (80-100); Mean Platelet Volume 10.3 fL (7.4-10.4); Monocytes # (auto) 0.59 K/uL (0.11-0.59); Monocytes % (auto) 8.8 %; Neutrophils # (auto) 4.19 K/uL (1.4-6.5); Neutrophils % (auto) 62.3 %; Platelet Count 195 K/uL (130-400); RDW Coefficient of Variation 14.3 % (11.5-14.5); Red Blood Count 2.82 M/uL (4.2-5.4); White Blood Count 6.72 K/uL (4.8-10.8)
[2019-01-02 06:35] LABS: RBC Morphology Unremarkable
--- NOTE | 2019-01-02 08:12 | Progress Note ---
DATE: 01/02/2019 SUBJECTIVE: A 63-year-old female postop day 4 from a right total hip replacement. She is doing pretty well. Pain has continued to get a little bit better daily. No chest pain or shortness of breath. Not feeling dizzy or lightheaded. Mostly just waiting for placement. OBJECTIVE: VITAL SIGNS: Temperature 36.9. Vital signs stable. GENERAL: Shows a pleasant, middle-aged female. She is lying in bed, looks reasonably comfortable. EXTREMITIES: Examination of the right hip reveals the leg to be well aligned. Dressing is clean, dry, and intact. No significant drainage. Thigh is soft and supple. She is neurologically intact. LABORATORY DATA: Hemoglobin 7.9. Hematocrit 24.1. ASSESSMENT: A 63-year-old female postop day 4 from right total hip replacement, doing pretty well. Pain is controlled. She is anemic, but asymptomatic. Continue iron supplementation. Doing well with current pain control. PLAN: 1. DVT prophylaxis including thigh-high TEDs, SCDs, and she is on Xarelto for 1 month. 2. PT/OT. Weight bear as tolerated. Right total hip protocol. 3. Pain control, doing pretty well with current pain regimen. 4. Anemia. Will continue iron supplementation. 5. Disposition: Plan to discharge to rehab/[facility] facility once approved and accepted. We are really just waiting for placement.
[2019-01-02] MEDS: BuPROPion SR 150 MG TABCR PO SCH (08:39)
[2019-01-02] MEDS: PANTOprazole 40 MG TAB PO SCH (08:39)
[2019-01-02] MEDS: MULTIVITAMIN TAB PO SCH (08:39)
[2019-01-02] MEDS: ASCORBIC ACID 500 MG TAB PO SCH ×2 (08:39→17:46)
[2019-01-02] MEDS: hydroCHLOROthiazide 25 MG TAB PO SCH (08:39)
[2019-01-02] MEDS: LISINOPRIL 10 MG TAB PO SCH (08:39)
[2019-01-02] MEDS: DOCUSATE SODIUM 100 MG CAP PO SCH ×2 (08:39→20:32)
[2019-01-02] MEDS: GABAPENTIN 300 MG CAP PO SCH (08:39)
[2019-01-02] MEDS: LORATADINE 10 MG TAB PO SCH (08:39)
[2019-01-02] MEDS: FERROUS GLUCONATE 324 MG TAB PO SCH ×2 (08:40→17:45)
[2019-01-02] MEDS: RIVAROXABAN 10 MG TABLET PO SCH (08:40)
[2019-01-02] MEDS: CHOLECALCIFEROL 1,000 UNITS TAB PO SCH (08:40)
[2019-01-02] MEDS: HYDROXYCHLOROQUINE SULFATE 200 MG TAB PO SCH (08:40)
[2019-01-02] MEDS: TAPENTADOL HCL ER 50 MG TABCR PO SCH ×2 (08:45→20:33)
[2019-01-02] MEDS: SENNA 8.6 MG TAB PO SCH (20:32)
[2019-01-02] MEDS: FLUOXETINE HCL 20 MG CAP PO SCH (20:33)
[2019-01-02] MEDS: GABAPENTIN 600 MG TAB PO SCH (20:33)
[2019-01-02] MEDS: MONTELUKAST SODIUM 10 MG TABLET PO SCH (20:34)
[2019-01-03] MEDS: ACETAMINOPHEN 500 MG TAB PO SCH ×3 (06:01→22:40)
[2019-01-03] MEDS: LEVOTHYROXINE SODIUM 75 MCG TABLET PO SCH (06:01)
--- NOTE | 2019-01-03 08:10 | Progress Note ---
DATE: 01/03/2019 SUBJECTIVE: A 63-year-old white female postop day 5 from a right total hip replacement. She is doing pretty well. Pain is controlled. Really just waiting for placement. No chest pain or shortness of breath. OBJECTIVE: VITAL SIGNS: Temperature 36.9. Vital signs stable. GENERAL: Shows a pleasant, middle-aged female. She is lying in bed, looks pretty comfortable. I had to wake her this morning. EXTREMITIES: Examination of the right hip reveals the dressing to be in place. Her leg lengths are equal. Hip is located. She is neurologically intact. Just some slight serosanguineous drainage from the incision site. ASSESSMENT: A 63-year-old white female postoperative day 5 from a total hip replacement, doing pretty well. Just waiting for placement. PLAN: 1. DVT prophylaxis including thigh-high TEDs, SCDs, and Xarelto for 1 month. 2. PT/OT. Weight bear as tolerated. Right total hip protocol. 3. Pain control, doing well with current pain regimen. 4. Anemia. She is asymptomatic. Continue iron supplementation. 5. Disposition: Plan to discharge to rehab or group home facility. We are just waiting for placement.
[2019-01-03] MEDS: TAPENTADOL HCL ER 50 MG TABCR PO SCH ×2 (08:26→21:00)
[2019-01-03] MEDS: LORATADINE 10 MG TAB PO SCH (08:26)
[2019-01-03] MEDS: FERROUS GLUCONATE 324 MG TAB PO SCH ×2 (08:26→17:31)
[2019-01-03] MEDS: MULTIVITAMIN TAB PO SCH (08:26)
[2019-01-03] MEDS: RIVAROXABAN 10 MG TABLET PO SCH (08:26)
[2019-01-03] MEDS: PANTOprazole 40 MG TAB PO SCH (08:26)
[2019-01-03] MEDS: ASCORBIC ACID 500 MG TAB PO SCH ×2 (08:26→17:31)
[2019-01-03] MEDS: hydroCHLOROthiazide 25 MG TAB PO SCH (08:26)
[2019-01-03] MEDS: LISINOPRIL 10 MG TAB PO SCH (08:26)
[2019-01-03] MEDS: CHOLECALCIFEROL 1,000 UNITS TAB PO SCH (08:27)
[2019-01-03] MEDS: BuPROPion SR 150 MG TABCR PO SCH (08:27)
[2019-01-03] MEDS: HYDROXYCHLOROQUINE SULFATE 200 MG TAB PO SCH (08:27)
[2019-01-03] MEDS: DOCUSATE SODIUM 100 MG CAP PO SCH ×3 (08:27→21:02)
[2019-01-03] MEDS: GABAPENTIN 300 MG CAP PO SCH (08:27)
[2019-01-03] MEDS: OXYCODONE HCL IR 5 MG TAB (IMMEDIATE RELEASE) PO PRN (18:47)
[2019-01-03] MEDS: SENNA 8.6 MG TAB PO SCH ×2 (20:56→21:02)
[2019-01-03] MEDS: GABAPENTIN 600 MG TAB PO SCH (20:57)
[2019-01-03] MEDS: FLUOXETINE HCL 20 MG CAP PO SCH (20:57)
[2019-01-03] MEDS: MONTELUKAST SODIUM 10 MG TABLET PO SCH (20:58)
--- NOTE | 2019-01-03 20:59 | Orthopedic Progress Note ---
Date of Service January 03, 2019 Assessment & Plan (1) Osteoarthritis of right hip: I reassured her that her incision looks good and I think she just had a little bit of hematoma which released while she was walking back from the bathroom. She still seems concerned that something might be wrong with the hip. I reassured her that that is unlikely, however I am going to send her for an x- ray of her hip. She was happy to hear that. Dr. Isidro will continue to follow her tomorrow. Present on Admission?: Yes Subjective Inocencia seen and examined at bedside this morning because a sudden right hip pain. She underwent a right total hip arthroplasty by Dr. Isidro 6 days ago. She was doing well until recently. She got up to go to the bathroom. When she was coming back from the bathroom she had a sudden increase of severe right hip pain. She is having trouble bearing weight. She feels like she had a hard ball in her right hip and it suddenly released. The nursing staff called me to evaluate and treat. Physical Exam Musculoskeletal: On physical examination of her right hip she does have a little bit of ecchymosis in the area and it seems to be extending down towards her knee. It is not excessive. She has a little bit of drainage from her incision but is just some serous drainage and not much. The incision otherwise looks good. She is having trouble putting weight on her right hip. Her leg lengths look equal. Results & Data Vital Signs (Past 12 Hours) Vital Signs Temp Pulse Resp BP BP Pulse Ox 01/03/19 20:54 60 100 01/03/19 19:42 36.8 C 61 18 143/73 H 100 01/03/19 15:06 36.8 C 60 16 117/76 99 PG Care Time/CCT Total # of Minutes Spent Total Time Spent with Patient: Total time spent is greater than 50% in coordination of care (as documented) at patient's floor/unit and/or counseling patient:
--- NOTE | 2019-01-03 22:36 | XRay Report ---
XR hip 1V RT w pelvis CLINICAL HISTORY: 63 years-old Female presenting with post-op MEETA pain. TECHNIQUE: Frontal and crosstable lateral views of the right hip were obtained. COMPARISON: 12/29/2018. FINDINGS: Redemonstration of the total right hip arthroplasty. Soft tissue emphysema has largely resolved. No p eriprosthetic fracture or lucency. Minimal osseous fragments in the surrounding soft tissues along th e right acetabulum, expected postsurgical findings. Skin chava remain in place. No malalignment. Mild to moderate degenerative changes of the left hip. Degenerative changes of the lower lumbar spine . Moderate stool burden. IMPRESSION: 1. Expected postsurgical appearance status post total right hip arthroplasty without evidence of com plication. 2. Degenerative changes of the left hip. Electronically signed by: Valente Christian M.D. 01/03/2019 10:35 PM
[2019-01-04] MEDS: ACETAMINOPHEN 500 MG TAB PO SCH ×3 (06:07→20:51)
[2019-01-04] MEDS: LEVOTHYROXINE SODIUM 75 MCG TABLET PO SCH (06:07)
--- NOTE | 2019-01-04 08:25 | XRay Report ---
RIGHT HIP 2 VIEWS CLINICAL HISTORY: Right hip pain. FINDINGS: AP and crosstable lateral views of the right hip are compared to study dated 01/03/2019. The skeletal structures are osteopenic. There is dislocation of a bipolar left hip arthroplasty, with po sterior and superior distraction of the femoral component. No fracture is seen. Overlying soft tissue edema is noted. Skin clips are consistent with recent surgery. IMPRESSION: 1. Dislocated right hip arthroplasty as above. 2. No fracture is identified. Electronically signed by: Taurus Rosales M.D. 01/04/2019 8:24 AM
[2019-01-04 08:34] LABS: Calcium 8.9 mg/dl (8.5-10.1); Creatinine Clr Calc Pharmacy 54.2 ml/min; Est GFR (African American) 49.2; Est GFR (Non-African American) 42.4; Potassium 4.1 mmol/L (3.5-5.1)
[2019-01-04 08:39] LABS: Hemoglobin 6.9 g/dL (12.0-16.0)
[2019-01-04] MEDS: hydroCHLOROthiazide 25 MG TAB PO SCH (08:54)
[2019-01-04] MEDS: LORATADINE 10 MG TAB PO SCH (08:54)
[2019-01-04] MEDS: FERROUS GLUCONATE 324 MG TAB PO SCH ×2 (08:54→20:25)
[2019-01-04] MEDS: PANTOprazole 40 MG TAB PO SCH (08:54)
[2019-01-04] MEDS: TAPENTADOL HCL ER 50 MG TABCR PO SCH ×2 (08:54→20:47)
[2019-01-04] MEDS: BuPROPion SR 150 MG TABCR PO SCH (08:54)
[2019-01-04] MEDS: CHOLECALCIFEROL 1,000 UNITS TAB PO SCH (08:54)
[2019-01-04] MEDS: MULTIVITAMIN TAB PO SCH (08:54)
[2019-01-04] MEDS: RIVAROXABAN 10 MG TABLET PO SCH (08:55)
[2019-01-04] MEDS: GABAPENTIN 300 MG CAP PO SCH (08:55)
[2019-01-04] MEDS: HYDROXYCHLOROQUINE SULFATE 200 MG TAB PO SCH (08:55)
[2019-01-04] MEDS: LISINOPRIL 10 MG TAB PO SCH (08:55)
[2019-01-04] MEDS: ASCORBIC ACID 500 MG TAB PO SCH ×2 (08:55→20:25)
[2019-01-04] MEDS: DOCUSATE SODIUM 100 MG CAP PO SCH ×2 (08:55→20:46)
[2019-01-04] MEDS ORDERED: SODIUM CHLORIDE 0.9% 250 ML IV PRN ×2 (09:08→17:27)
--- NOTE | 2019-01-04 09:37 | Progress Note ---
DATE: 01/04/2019 SUBJECTIVE: A 63-year-old female now 6 days out from right total hip replacement. She has done pretty well, but was having a little bit more pain last evening. She felt like her hip felt abnormal, had an x-ray done which was normal. She was apparently put on a bedside commode yesterday when she had a syncopal episode described by nurses. She just kind of passed out and they lowered her to the floor. She did have her leg bent a little bit abnormal. She describes increasing pain today. She was seen by Dr. Mathew earlier. There is no visible deformity. She is describing some buttock pain No chest pain. Not feeling dizzy or lightheaded now. OBJECTIVE: VITAL SIGNS: Temperature 37.0. Vital signs stable. Heart rate 65. Blood pressure is stable. GENERAL: Shows a pleasant, middle-aged female. She is lying in bed, looks reasonably comfortable. EXTREMITIES: Examination of the right hip reveals incision to be clean, dry and intact. There is no significant drainage on her dressing this morning. She has got a large soft tissue envelope. Leg lengths were equal. Hip appears located. She can dorsiflex and plantarflex her foot appropriately. She still cannot quite do a straight leg raising, could not since surgery. More pain than previously with attempted hip range of motions ASSESSMENT: A 63-year-old female now 6 days out from right total hip replacement. We are just waiting for placement. She has had this syncopal episode, but seems to be doing better now. She is on anticoagulation, which certainly makes little bit of a hematoma more likely may be a little bit more swelling in his leg. PLAN: We are going to check her H and H today as it has been kind of low. Her vital signs are stable. She is on iron supplementation. We will get an x-ray just to make sure everything is okay, but clinically it looks fine. As along as this all looks okay, we will continue to look for discharge planning. This will be based on above findings. We will continue DVT prophylaxis including thigh-high TEDs, SCDs, Xarelto. MTDD
[2019-01-04] MEDS ORDERED: LIDOCAINE HCL 2% 2 ML VIAL/AMP(20MG/ML) INFIL ONE (14:32)
[2019-01-04] MEDS ORDERED: PROPOFOL IV EMULSION 10 MG/ML 20 ML VIAL IV ONE ×2 (14:32→15:39)
[2019-01-04] MEDS ORDERED: ONDANSETRON INJ 2 MG/ML 2 ML VIAL ONE (14:32)
[2019-01-04] MEDS ORDERED: ROCURONIUM BROMIDE 10 MG/ML 5 ML VIAL ONE (14:32)
[2019-01-04] MEDS ORDERED: fentaNYL citrate 100 MCG/2 ML VIAL ONE (14:33)
--- NOTE | 2019-01-04 15:07 | History & Physical Bridge Note ---
Date of Service January 04, 2019 History & Physical Bridge Note I have examined the patient, reviewed the History & Physical and in the interval since the performance of the History & Physical I have noted the following changes of clinical significance: no changes noted Patient with dislocated Right THR. Will take to OR for closed vs open reduction of hip. Risks and benefits explained.
[2019-01-04] MEDS ORDERED: ONDANSETRON INJ 2 MG/ML 2 ML VIAL IV PRN ×2 (15:10→17:27)
[2019-01-04] MEDS ORDERED: LABETALOL HCL IV 5 MG/ML 20ML IV PRN (15:10)
[2019-01-04] MEDS ORDERED: ePHEDrine sulfate 50 MG/ML AMP IV PRN (15:10)
[2019-01-04] MEDS ORDERED: HYDROmorphone INJ 1 MG/ML SYRINGE IV PRN (15:10)
[2019-01-04] MEDS ORDERED: PHENYLEPHRINE 100MCG/ML 5ML SYR IV PRN (15:10)
[2019-01-04] MEDS ORDERED: ATROPINE SULFATE 0.1 MG/ML 10ML SYR IV PRN (15:10)
--- NOTE | 2019-01-04 15:12 | Anesthesiology Consultation ---
Date of Service January 04, 2019 Assessment & Plan (1) Encounter for pre-operative examination: Chart Review Chart Review: Acceptable Risk for Surgery and Patient NOT seen in Pre Admission Testing Consults Requested none History Surgery Operation Date: 12/29/18 07:00 Proposed Procedures p Right Total Hip Replacement - Honorio Isidro MD Operation Date: 01/04/19 07:00 Proposed Procedures p Right Dislocated Hip Closed Reduction - Honorio Isidro MD Height/Weight Height: 5 ft 4 in Weight: 116.1 kg Allergies Allergy/AdvReac Type Severity Reaction Status Date / Time NSAIDS (Non-Steroidal Allergy Severe advised to Verified 12/29/18 05:50 Anti-Inflamma avoid d/t kidney disease adhesive Allergy Mild Rash Verified 12/29/18 05:50 latex Allergy Mild skin Verified 12/29/18 05:50 irritation nickel Allergy Mild redness Verified 12/29/18 05:50 and puffiness procaine Allergy Unknown shaking Verified 12/29/18 05:50 and increased peeing with novacaine aspirin AdvReac Mild Gastrointestinal Verified 12/29/18 05:50 Upset clarithromycin AdvReac Mild abdominal Verified 12/29/18 05:50 discomfort codeine AdvReac Unknown stomach Verified 12/29/18 05:50 burning, nervous Medications Home Medications Medication Instructions Recorded Confirmed Last Taken bupropion HCl 150 mg PO QAM 08/08/18 12/07/18 12/29/18 04:30 cholecalciferol (vitamin D3) 5,000 unit PO QAM 08/08/18 12/29/18 12/28/18 11:00 [Vitamin D3] fluoxetine 60 mg PO HS 08/08/18 12/29/18 12/28/18 23:00 gabapentin 300 mg PO QAM 08/08/18 12/07/18 12/29/18 04:30 gabapentin 600 mg PO QPM 08/08/18 12/29/18 12/28/18 23:00 hydrochlorothiazide 12.5 mg PO QAM 08/08/18 12/29/18 12/28/18 11:00 hydroxychloroquine 400 mg PO QAM 08/08/18 12/29/18 12/28/18 11:00 levothyroxine 75 mcg PO QAM 08/08/18 12/07/18 12/29/18 04:30 lisinopril 10 mg PO QAM 08/08/18 12/29/18 12/28/18 11:00 loratadine 10 mg PO QAM 08/08/18 12/29/18 12/28/18 11:00 montelukast 10 mg PO QPM 08/08/18 12/29/18 12/28/18 23:00 multivitamin 2 tab PO QAM 09/21/18 12/29/18 12/28/18 11:00 omeprazole 20 mg PO QAM 12/07/18 12/07/18 12/29/18 04:30 acetaminophen [Tylenol Extra 1,000 mg PO Q8 30 Days #180 tab 12/30/18 Unknown Strength] ferrous gluconate 324 mg PO BIDM 30 Days #60 tab 12/30/18 Unknown oxycodone 5 - 10 mg PO Q6H PRN 15 Days #40 12/30/18 Unknown tab rivaroxaban [Xarelto] 10 mg PO DAILY 28 Days #28 tab 12/30/18 Unknown Active Medications Generic Name Dose Route Start Last Admin Trade Name [facility] PRN Reason Stop Dose Admin Acetaminophen 1,000 mg 01/01/19 14:45 01/04/19 06:07 Tylenol PO 01/28/19 13:59 1,000 mg Q8H LOU Administration Ascorbic Acid 500 mg 12/29/18 17:00 01/04/19 08:55 Vitamin C PO 01/28/19 16:59 500 mg BIDM LOU Administration Bupropion HCl 150 mg 12/29/18 10:24 01/04/19 08:54 Wellbutrin-Sr PO 01/28/19 10:23 150 mg QAM LOU Administration Docusate Sodium 100 mg 12/29/18 10:24 01/04/19 08:55 Colace PO 01/28/19 10:23 Not Given BID LOU Ferrous Gluconate 324 mg 12/29/18 17:00 01/04/19 08:54 Ferrous Gluconate PO 01/28/19 16:59 324 mg BIDM LOU Administration Fluoxetine HCl 60 mg 12/29/18 21:00 01/03/19 20:57 Prozac PO 01/28/19 20:59 60 mg HS LOU Administration Gabapentin 300 mg 12/30/18 09:00 01/04/19 08:55 Neurontin PO 01/29/19 08:59 300 mg QAM LOU Administration Gabapentin 600 mg 12/29/18 21:00 01/03/19 20:57 Neurontin PO 01/28/19 20:59 600 mg QPM LOU Administration Hydrochlorothiazide 12.5 mg 12/29/18 10:24 01/04/19 08:54 Hctz PO 01/28/19 10:23 12.5 mg QAM LOU Administration Hydromorphone HCl 0.5 mg 12/30/18 00:53 01/03/19 20:31 Dilaudid IV 01/13/19 00:52 0.5 mg Q4H PRN Administration Pain Hydroxychloroquine Sulfate 400 mg 12/29/18 10:24 01/04/19 08:55 Plaquenil PO 01/28/19 10:23 400 mg QAM LOU Administration Levothyroxine Sodium 75 mcg 12/29/18 10:24 01/04/19 06:07 Synthroid PO 01/28/19 10:23 75 mcg DAILYBB LOU Administration Lisinopril 10 mg 12/29/18 10:24 01/04/19 08:55 Zestril PO 01/28/19 10:23 10 mg QAM LOU Administration Loratadine 10 mg 12/29/18 10:24 01/04/19 08:54 Claritin PO 01/28/19 10:23 10 mg QAM LOU Administration Miconazole Nitrate 1 appln 12/31/18 20:42 12/31/18 21:45 Desenex EXT 01/30/19 20:41 1 appln PRN PRN Administration Affected Skin Folds Montelukast Sodium 10 mg 12/29/18 21:00 01/03/19 20:58 Singulair PO 01/28/19 20:59 10 mg QPM LOU Administration Multivitamins 1 tab 12/29/18 10:24 01/04/19 08:54 Multivitamin Tab PO 01/28/19 10:23 1 tab QAM LOU Administration Oxycodone HCl 5 - 10 mg 12/30/18 00:53 01/03/19 18:47 Roxicodone Immediate Rel PO 01/13/19 00:52 10 mg Q6H PRN Administration Pain Pantoprazole Sodium 40 mg 12/29/18 10:24 01/04/19 08:54 Protonix PO 01/28/19 10:23 40 mg QAM LOU Administration Rivaroxaban 10 mg 12/30/18 09:00 01/04/19 08:55 Xarelto PO 01/29/19 08:59 10 mg DAILY LOU Administration Sennosides 17.2 mg 12/29/18 21:00 01/03/19 21:02 Senokot PO 01/28/19 20:59 Not Given HS LOU Tapentadol 50 mg 12/30/18 09:00 01/04/19 08:54 Nucynta Er PO 01/13/19 08:59 50 mg Q12 LOU Administration Vitamin D 5,000 units 12/29/18 10:24 01/04/19 08:54 Vitamin D3 PO 01/28/19 10:23 5,000 units QAM LOU Administration NPO Date Last Intake of Fluids: 01/04/19 Time Last Intake of Fluids: 09:00 Last Intake of Fluids Comment: sipped hot tea Date Last Intake of Solids: 01/04/19 Time Last Intake of Solids: 06:00 Last Intake of Solids Comment: 2/3 slice toast with butter and jelly Past Medical History Medical History Gastritis 09/2018 - started on PPI Asthma stable; no inhalers Depression GERD (gastroesophageal reflux disease) occasional Hypertension Hypothyroidism Kidney disease, chronic, stage IV (GFR 15-29 ml/min) under surveillance; not on dialysis Morbid obesity Polymyalgia rheumatica on hydroxychloroquine Past Family History Family History Other Family history not known due to adoption Past Surgical History Surgical History History of esophagogastroduodenoscopy (EGD) History of appendectomy History of cholecystectomy History of colonoscopy History of dental surgery dental implants History of endometrial ablation History of laparoscopy multiple--endometriosis History of nasal polypectomy x2 History of phacoemulsification of cataract of both eyes with intraocular lens implantation History of removal of cyst LEFT FOOT History of right oophorectomy History of tonsillectomy History of total left knee replacement (TKR) x2 History of total right knee replacement (TKR) History of wisdom tooth extraction Past Anesthesia History "Slow to wake"; no known hx reintubation Social History Smoking Status: Former smoker Do You Dip or Chew Tobacco: No Smoking End Date: Quit 1974 Hx Alcohol Use: Yes Alcohol type: other alcohol intake frequency: other Hx Substance Use: No substance use type: does not use Physical Exam Vital Signs Last Vital Signs Temp 37.6 C H 01/04/19 14:44 Pulse 66 01/04/19 14:44 Resp 20 01/04/19 14:44 BP 129/53 L 01/04/19 14:44 Pulse Ox 98 01/04/19 14:44 Testing Laboratory Results 01/04/19 07:49 01/04/19 07:42 PT 10.1 Seconds (9.0-12.0) 12/18/18 15:00 INR 1.0 (0.9-1.1) 12/18/18 15:00 APTT 26.3 Seconds (21.0-31.0) 12/18/18 15:00 Blood Type O Negative 01/04/19 07:42 Antibody Screen NEGATIVE 01/04/19 07:42 Electrocardiogram Date: 08/08/18 SB with occasional PVC's at 54bpm. Otherwise "normal" EKG. Chest X-Ray Date: 08/08/18 Findings: + NAD
--- NOTE | 2019-01-04 15:20 | Progress Note ---
DATE: 01/04/2019 SUBJECTIVE: A 63-year-old female now 6 days out from right total hip replacement. Last evening, she had a syncopal episode and was lowered to the floor and her hip got twisted. I saw around this morning, the hip looked okay. We got an x-ray and the hip is dislocated. Now indicated for closed reduction versus open reduction. No other complaints. She does say her hip hurts more. OBJECTIVE: VITAL SIGNS: Temperature 37.6. Vital signs stable. GENERAL: Shows a pleasant, middle-aged female. She is lying in bed, looks reasonably comfortable. EXTREMITIES: Leg lengths appear pretty equal and her foot rotation is pretty normal. She can dorsiflex and plantarflex her foot appropriately. X-RAYS: X-ray of the right hip reviewed. It shows a right uncemented hip replacement. The component is dislocated. ASSESSMENT: A 63-year-old female 6 days out from a total hip replacement with a dislocated hip prosthesis. This clearly occurred during a syncopal episode. PLAN: We are going to take her to the operating room and do a closed reduction. We can do this closed, we will do it open. Hopefully, that will be the case. She is getting some blood as she is anemic. She is on Lovenox due to her renal function, inability to take aspirin. The risks and benefits of this procedure were explained to the patient including but not limited to DVT, PE, , infection, neurological injury, vascular injury, bleeding problem, pain, limited range of motion, stiffness, failure to relieve symptoms, incomplete relief of symptoms, need for further surgery in future, fracture, leg length inequality, nerve palsy, need for revision surgery. The patient understands and desires to proceed. Informed consent was obtained. DINORA
[2019-01-04 15:27] LABS: Hematocrit (blood only) 24.3 % (37-47)
[2019-01-04] MEDS ORDERED: SUCCINYLCHOLINE 100MG/5ML SYR ONE (15:52)
[2019-01-04] MEDS ORDERED: GLYCOPYRROLATE 0.2 MG/ML VIAL ONE (15:53)
[2019-01-04] MEDS ORDERED: NEOSTIGMINE METHYLSULFATE 5 MG/5 ML SYR ONE (15:53)
--- NOTE | 2019-01-04 15:59 | Post Operative Brief Note ---
PG Immediate Post Op with CF Date of Surgery January 04, 2019 Pre & Post Diagnosis Operation Date: 12/29/18 07:00 Pre-Op Diagnosis: Right Hip Advanced Degenerative Joint Disease Post-Op Diagnosis: Right Hip Advanced Degenerative Joint Disease Operation Date: 01/04/19 07:00 Pre-Op Diagnosis: dislocated Right total hip replacement Post-Op Diagnosis: dislocated Right total hip replacement Procedure Operation Date: 12/29/18 07:00 Actual Procedures p Right Total Hip Arthroplasty--Uncemented(Right) - Honorio Isidro MD Operation Date: 01/04/19 07:00 Actual Procedures p Right Dislocated Hip Closed Reduction(Right) - Honorio Isidro MD Surgeon Honorio Isidro MD Disability Case Manager ELEAZAR Huddleston Estimated Blood Loss 0 Findings Consistent with Post-Op Diagnosis Specimens Specimen Description: none per surgeon Drains Ontiveros Catheter (A 16 Norwegian Latex-Free ontiveros catheter was inserted by ALEXA Smith, without difficulty, clear yellow urine obtained, output to be monitored by Anesthesia.) Anesthesia Type General Complications none Disposition Accompanied Patient To Recovery: No Disposition: Recovery Room
[2019-01-04] MEDS ORDERED: CEFAZOLIN 3000MG/72.5 ML BAG IV SCH (16:15)
--- NOTE | 2019-01-04 16:19 | Fluoroscopy Report ---
FL hip RT 2-3V CLINICAL HISTORY: 63 years-old Female presenting with CLOSED REDUCTION RIGHT HIP. TECHNIQUE: 2 fluoroscopic image(s) recorded as part of an intraoperative procedure. COMPARISON: Plain radiographs from earlier the same day. FINDINGS/IMPRESSION: There has been interval reduction of the right femoral component dislocation at the total right hip a rthroplasty. No residual malalignment. No gross evidence of a periprosthetic fracture. Overlying skin chava remain in place. Please see surgical report for further details. Dose area product (mGy.cm^2): 54.159. Fluoroscopy time: 2 minutes 13.1 seconds. Number or time of high level fluoroscopy (HLF), digital spot, or digital subtraction images: 0. Electronically signed by: Valente Christian M.D. 01/04/2019 4:18 PM
--- NOTE | 2019-01-04 16:34 | Anesthesiology Progress Note ---
Date of Service January 04, 2019 Anesthesia Post Procedure Vital Signs Vital Signs: Temp Pulse Pulse Pulse Resp BP BP 01/04/19 16:20 64 20 139/64 01/04/19 16:12 37.0 C 65 17 137/62 01/04/19 14:44 37.6 C H 66 20 129/53 L 01/04/19 13:52 36.8 C 68 14 107/70 01/04/19 12:45 36.9 C 69 14 118/69 01/04/19 11:43 37.2 C 62 16 108/65 01/04/19 11:14 37.0 C 64 16 101/61 01/04/19 10:44 36.9 C 62 16 101/62 01/04/19 10:29 36.9 C 64 16 113/70 01/04/19 10:10 36.9 C 64 18 118/64 01/04/19 07:02 37.0 C 65 16 109/68 01/04/19 05:50 67 20 123/63 01/03/19 22:36 36.9 C 67 16 01/03/19 20:54 60 01/03/19 19:42 36.8 C 61 18 BP Pulse Ox 01/04/19 16:20 100 01/04/19 16:12 100 01/04/19 14:44 98 01/04/19 13:52 96 01/04/19 12:45 96 01/04/19 11:43 98 01/04/19 11:14 97 01/04/19 10:44 97 01/04/19 10:29 95 01/04/19 10:10 01/04/19 07:02 97 01/04/19 05:50 98 01/03/19 22:36 124/70 98 01/03/19 20:54 100 01/03/19 19:42 143/73 H 100 Pain Intensity Right Hip: Pain Intensity: 0 Transfer of Care Handoff Completed per policy Notes Mental Status: alert / awake / arousable Patient Amnestic to Procedure: Yes Nausea / Vomiting: adequately controlled Pain: adequately controlled Airway Patency, RR, SpO2: stable & adequate BP & HR: stable & adequate Hydration State: stable & adequate Anesthetic Complications: no major complications apparent and Pt Satisfied with anesthetic care
[2019-01-04] MEDS: fentaNYL citrate 100 MCG/2 ML VIAL IV PRN ×2 (16:39→16:44)
[2019-01-04] MEDS ORDERED: CEFAZOLIN 2,000 MG/15 ML IV PUSH IV ONE (16:53)
[2019-01-04] MEDS ORDERED: METOCLOPRAMIDE HCL INJ 5 MG/ML 2 ML VIAL IV PRN (17:27)
[2019-01-04] MEDS ORDERED: BISACODYL 10 MG SUPP PR PRN (17:27)
[2019-01-04] MEDS ORDERED: MAGNESIUM HYDROXIDE SUSP 30 ML UDC PO PRN (17:27)
[2019-01-04] MEDS ORDERED: NALOXONE HCL 0.4 MG/1 ML VIAL/CARP IV PRN (17:27)
[2019-01-04] MEDS ORDERED: NO NSAIDS SCH (17:27)
[2019-01-04] MEDS: SODIUM CHLORIDE 0.9% 1000ML 1,000 ML IV SCH (18:05)
[2019-01-04] MEDS: SENNA 8.6 MG TAB PO SCH (20:46)
[2019-01-04] MEDS: MONTELUKAST SODIUM 10 MG TABLET PO SCH (20:46)
[2019-01-04] MEDS: FLUOXETINE HCL 20 MG CAP PO SCH (20:47)
[2019-01-04] MEDS: GABAPENTIN 600 MG TAB PO SCH (20:47)
[2019-01-04] MEDS ORDERED: DOCUSATE SODIUM 100 MG CAP PO SCH (21:00)
[2019-01-04] MEDS ORDERED: SENNA 8.6 MG TAB PO SCH (21:00)
[2019-01-05] MEDS: CEFAZOLIN 2000MG 2,000 MG/15 ML SYR IV SCH ×3 (00:22→14:30)
--- NOTE | 2019-01-05 00:37 | Operative Report ---
DATE OF OPERATION: 01/04/2019 SURGEON: Honorio Isidro MD STARS SPECIALIST: ALEXA Banks PREOPERATIVE DIAGNOSIS: Right posterior hip dislocation, status post total hip replacement. POSTOPERATIVE DIAGNOSIS: Right posterior hip dislocation, status post total hip replacement. PROCEDURE PERFORMED: Closed reduction of right dislocated total hip arthroplasty. COMPLICATIONS: None. ESTIMATED BLOOD LOSS: Minimal. ANESTHESIA: General. SPECIMENS: None. OPERATIVE INDICATIONS: The patient is a 63-year-old female now 6 days out from a right total hip replacement. She has done well and we are just really waiting for placement. Last evening she was going to the bathroom and had a syncopal episode. She fell to the ground and was lowered to the ground and had a significant twisting injury to her hip where it collapsed. She was put back in bed. X-rays revealed a dislocated total hip arthroplasty. The patient indicated for closed reduction. OPERATIVE PROCEDURE: The patient was taken to the operating room, identified and placed on the operating table in supine position. All contact areas were appropriately padded. A general anesthetic was implemented. She was transferred to the main OR table. X-ray was brought in. We performed multiple reduction attempts. It was quite difficult to relocate her hip. Eventually with some longitudinal traction with the hip flexed about 90 degrees, I was able to apply longitudinal traction, internally rotated the leg and eventually get the hip to fall back in place. Once again, it was quite difficult. We did do this under full muscle paralysis. Final x-rays were obtained. There were no signs of fracture. The hip appeared stable and concentrically reduced. The patient was then brought out of general anesthesia and transferred to the recovery room in stable condition. The patient tolerated the procedure well with no complications and abduction pillow was placed. I attest to the content of the Intraoperative Record and any orders documented therein. Any exceptions are noted below. MTDD
[2019-01-05] MEDS: ACETAMINOPHEN 500 MG TAB PO SCH ×3 (05:03→22:11)
[2019-01-05] MEDS: LEVOTHYROXINE SODIUM 75 MCG TABLET PO SCH (05:03)
[2019-01-05] MEDS: SODIUM CHLORIDE 0.9% 1000ML 1,000 ML IV SCH (05:12)
[2019-01-05 06:08] LABS: Basophils # (auto) 0.02 K/uL (0-0.2); Basophils % (auto) 0.2 %; Eosinophils # (auto) 0.27 K/uL (0-0.5); Hematocrit (blood only) 24.8 % (37-47); Hemoglobin 8.2 g/dL (12.0-16.0); Immature Granulocytes # (auto) 0.04 K/uL (0.00-0.02); Immature Granulocytes % (auto) 0.4 %; Lymphocytes # (auto) 1.29 K/uL (1.2-3.4); Lymphocytes % (auto) 14.4 %; Mean Corpuscular Hemoglobin 28.5 pg (25-34); Mean Corpuscular Hgb Conc 33.1 g/dL (32-36); Mean Corpuscular Volume 86.1 fL (80-100); Mean Platelet Volume 9.8 fL (7.4-10.4); Monocytes # (auto) 1.08 K/uL (0.11-0.59); Neutrophils # (auto) 6.27 K/uL (1.4-6.5); Platelet Count 241 K/uL (130-400); RDW Coefficient of Variation 14.4 % (11.5-14.5); RDW Standard Deviation 45.5 fL (36.4-46.3); Red Blood Count 2.88 M/uL (4.2-5.4); White Blood Count 8.97 K/uL (4.8-10.8)
[2019-01-05 06:44] LABS: BUN Creatinine Ratio 18.3 (10-20); Calcium 8.4 mg/dl (8.5-10.1); Est GFR (African American) 47.9; Est GFR (Non-African American) 41.3
[2019-01-05] MEDS: CHOLECALCIFEROL 1,000 UNITS TAB PO SCH (08:32)
[2019-01-05] MEDS: MULTIVITAMIN TAB PO SCH (08:33)
[2019-01-05] MEDS: LORATADINE 10 MG TAB PO SCH (08:33)
[2019-01-05] MEDS: GABAPENTIN 300 MG CAP PO SCH (08:33)
[2019-01-05] MEDS: PANTOprazole 40 MG TAB PO SCH (08:33)
[2019-01-05] MEDS: HYDROXYCHLOROQUINE SULFATE 200 MG TAB PO SCH (08:34)
[2019-01-05] MEDS: ASCORBIC ACID 500 MG TAB PO SCH ×2 (08:34→17:56)
[2019-01-05] MEDS: FERROUS GLUCONATE 324 MG TAB PO SCH ×2 (08:34→17:56)
[2019-01-05] MEDS: BuPROPion SR 150 MG TABCR PO SCH (08:35)
[2019-01-05] MEDS: hydroCHLOROthiazide 25 MG TAB PO SCH (08:35)
[2019-01-05] MEDS: RIVAROXABAN 10 MG TABLET PO SCH (08:35)
[2019-01-05] MEDS: LISINOPRIL 10 MG TAB PO SCH (08:35)
[2019-01-05] MEDS: DOCUSATE SODIUM 100 MG CAP PO SCH ×2 (08:36→20:17)
[2019-01-05] MEDS: TAPENTADOL HCL ER 50 MG TABCR PO SCH ×2 (08:37→20:17)
--- NOTE | 2019-01-05 08:40 | Anesthesiology Progress Note ---
Date of Service January 05, 2019 Anesthesia Post Procedure Vital Signs Vital Signs: Temp Pulse Pulse Pulse Pulse Resp BP 01/05/19 07:34 37.1 C 65 16 01/05/19 04:30 37.0 C 66 15 01/04/19 23:27 37.6 C H 65 16 01/04/19 22:39 37.8 C H 65 16 132/70 01/04/19 21:55 37.9 C H 67 16 149/72 H 01/04/19 21:25 38 C H 69 16 146/69 H 01/04/19 20:54 69 17 142/71 H 01/04/19 20:34 37.7 C H 69 16 131/71 01/04/19 20:18 37.5 C 69 18 142/73 H 01/04/19 19:32 37.3 C 66 16 01/04/19 18:26 37 C 67 16 01/04/19 18:00 63 16 01/04/19 17:25 37 C 66 16 01/04/19 17:00 36.6 C 65 18 01/04/19 16:50 64 21 01/04/19 16:40 63 20 01/04/19 16:30 63 19 01/04/19 16:20 64 20 01/04/19 16:12 37.0 C 65 17 01/04/19 14:44 37.6 C H 66 20 01/04/19 13:52 36.8 C 68 14 107/70 01/04/19 12:45 36.9 C 69 14 118/69 01/04/19 11:43 37.2 C 62 16 108/65 01/04/19 11:14 37.0 C 64 16 101/61 01/04/19 10:44 36.9 C 62 16 101/62 01/04/19 10:29 36.9 C 64 16 113/70 01/04/19 10:10 36.9 C 64 18 118/64 BP Pulse Ox 01/05/19 07:34 144/71 H 95 01/05/19 04:30 126/74 95 01/04/19 23:27 101/59 L 94 01/04/19 22:39 94 01/04/19 21:55 97 01/04/19 21:25 96 01/04/19 20:54 99 01/04/19 20:34 97 01/04/19 20:18 97 01/04/19 19:32 132/82 100 01/04/19 18:26 141/80 H 99 01/04/19 18:00 142/81 H 100 01/04/19 17:25 134/72 100 01/04/19 17:00 133/63 95 01/04/19 16:50 125/62 95 01/04/19 16:40 134/64 96 01/04/19 16:30 151/72 H 100 01/04/19 16:20 139/64 100 01/04/19 16:12 137/62 100 01/04/19 14:44 129/53 L 98 01/04/19 13:52 96 01/04/19 12:45 96 01/04/19 11:43 98 01/04/19 11:14 97 01/04/19 10:44 97 01/04/19 10:29 95 01/04/19 10:10 Pain Intensity Right Hip: Pain Intensity: 3 Notes Mental Status: alert / awake / arousable Patient Amnestic to Procedure: Yes Nausea / Vomiting: adequately controlled Pain: adequately controlled Airway Patency, RR, SpO2: stable & adequate BP & HR: stable & adequate Hydration State: stable & adequate Anesthetic Complications: no major complications apparent
[2019-01-05] MEDS ORDERED: MULTIVITAMIN TAB PO SCH (09:00)
[2019-01-05] MEDS: MICONAZOLE NITRATE POWDER 43 GM EXT PRN (09:02)
--- NOTE | 2019-01-05 11:48 | Progress Note ---
DATE: 01/05/2019 SUBJECTIVE: A 63-year-old female now 1 week out from a total hip replacement complicated by dislocation reduced yesterday. She had a syncopal episode and fell while going to the bathroom. She is doing much better today. Pain is controlled. No chest pain or shortness of breath. Not feeling dizzy or lightheaded. OBJECTIVE: VITAL SIGNS: Temperature is 36.6. Vital signs stable. GENERAL: Shows pleasant, middle-aged female. She is sitting up in her bedside chair, looks pretty comfortable. LUNGS: Clear to auscultation. HEART: Regular rate and rhythm. ABDOMEN: Soft, nontender, nondistended. EXTREMITIES: Grossly neurovascularly intact except as follows: Examination of the right hip and leg reveal the dressing to be in place. She does have some serous drainage on the dressing. Her thigh is soft and supple. Large soft tissue envelope. Leg lengths appear equal. She can dorsiflex and plantarflex her foot appropriately. LABORATORY DATA: Hemoglobin 8.2. Hematocrit 24.8. Electrolytes are stable. Creatinine stable at 1.36. ASSESSMENT: A 63-year-old female 1 week out from a total hip replacement complicated by a fall and dislocation yesterday. She is doing much better. We were able to relocate her hip, but took some work. Her hip appears stable. She did get 2 units of blood as her hemoglobin has been low. She is on Xarelto. PLAN: 1. DVT prophylaxis including thigh-high TEDs, SCDs, and Xarelto. 2. PT/OT. Weight bear as tolerated. Right total hip protocol. 3. Pain control, doing well with current pain regimen. 4. Antibiotics. We are going to just begin some oral antibiotics for infection prophylaxis due to her serous drainage. 5. Disposition: She is to just wait for placement. If doing okay tomorrow, we hopefully can get her to a nursing home facility.
[2019-01-05] MEDS: FLUOXETINE HCL 20 MG CAP PO SCH (20:17)
[2019-01-05] MEDS: GABAPENTIN 600 MG TAB PO SCH (20:17)
[2019-01-05] MEDS: MONTELUKAST SODIUM 10 MG TABLET PO SCH (20:18)
[2019-01-05] MEDS: SENNA 8.6 MG TAB PO SCH (20:18)
[2019-01-06] MEDS: LEVOTHYROXINE SODIUM 75 MCG TABLET PO SCH (05:32)
[2019-01-06] MEDS: ACETAMINOPHEN 500 MG TAB PO SCH ×3 (05:32→22:05)
[2019-01-06 05:44] LABS: Basophils # (auto) 0.02 K/uL (0-0.2); Basophils % (auto) 0.2 %; Eosinophils # (auto) 0.58 K/uL (0-0.5); Eosinophils % (auto) 7.1 %; Hematocrit (blood only) 21.5 % (37-47); Hemoglobin 7.1 g/dL (12.0-16.0); Immature Granulocytes # (auto) 0.05 K/uL (0.00-0.02); Immature Granulocytes % (auto) 0.6 %; Lymphocytes # (auto) 1.64 K/uL (1.2-3.4); Lymphocytes % (auto) 20.1 %; Mean Corpuscular Volume 84.6 fL (80-100); Monocytes # (auto) 0.77 K/uL (0.11-0.59); Monocytes % (auto) 9.4 %; Neutrophils # (auto) 5.09 K/uL (1.4-6.5); Neutrophils % (auto) 62.6 %; Platelet Count 255 K/uL (130-400); RDW Coefficient of Variation 14.4 % (11.5-14.5); RDW Standard Deviation 44.7 fL (36.4-46.3); Red Blood Count 2.54 M/uL (4.2-5.4); White Blood Count 8.15 K/uL (4.8-10.8)
[2019-01-06 06:08] LABS: RBC Morphology Unremarkable
[2019-01-06] MEDS: ASCORBIC ACID 500 MG TAB PO SCH ×2 (07:35→17:49)
[2019-01-06] MEDS: LORATADINE 10 MG TAB PO SCH (07:35)
[2019-01-06] MEDS: DOCUSATE SODIUM 100 MG CAP PO SCH ×2 (07:35→20:26)
[2019-01-06] MEDS: PANTOprazole 40 MG TAB PO SCH (07:35)
[2019-01-06] MEDS: GABAPENTIN 300 MG CAP PO SCH (07:35)
[2019-01-06] MEDS: CHOLECALCIFEROL 1,000 UNITS TAB PO SCH (07:36)
[2019-01-06] MEDS: HYDROXYCHLOROQUINE SULFATE 200 MG TAB PO SCH (07:36)
[2019-01-06] MEDS: FERROUS GLUCONATE 324 MG TAB PO SCH ×2 (07:36→17:49)
[2019-01-06] MEDS: MULTIVITAMIN TAB PO SCH (07:37)
[2019-01-06] MEDS: BuPROPion SR 150 MG TABCR PO SCH (07:37)
[2019-01-06] MEDS: RIVAROXABAN 10 MG TABLET PO SCH (07:38)
[2019-01-06] MEDS: hydroCHLOROthiazide 25 MG TAB PO SCH (07:38)
[2019-01-06] MEDS: LISINOPRIL 10 MG TAB PO SCH (07:39)
[2019-01-06] MEDS: TAPENTADOL HCL ER 50 MG TABCR PO SCH ×2 (07:45→20:26)
[2019-01-06] MEDS ORDERED: SODIUM CHLORIDE 0.9% 250 ML IV PRN (08:22)
[2019-01-06] MEDS: cephALEXin 500 MG CAP PO SCH ×2 (09:20→20:26)
--- NOTE | 2019-01-06 12:59 | Progress Note ---
DATE: 01/06/2019 SUBJECTIVE: A 63-year-old female now 8 days out from a right uncemented total hip replacement complicated by postoperative dislocation 2 days ago when she fell. She is doing okay from the hip standpoint. Just feels kind of worn out. No chest pain or shortness of breath. Not feeling dizzy or lightheaded. OBJECTIVE: VITAL SIGNS: Temperature 36.6. Vital signs stable. GENERAL: Shows a pleasant, elderly, middle-aged female. She is sitting up in bed, and looks pretty comfortable. EXTREMITIES: Examination of the right hip does reveal the leg lengths to be equal. Hip appears located. There is continued to be serous drainage on her dressing. Just a little bit of blood at the superior aspect. Her thigh is very large, but soft. No obvious fluid collections. She can dorsiflex and plantarflex her foot appropriately. LABORATORY DATA: Hemoglobin is 7.1. Hematocrit 21.5. ASSESSMENT: A 63-year-old female with some underlying chronic renal insufficiency with morbid obesity, now 8 days out from a total hip replacement complicated by dislocation. She has done reasonably well despite this, but continued to have trouble maintaining her hemoglobin and hematocrit. She is on Xarelto. I am sure this dislocation probably added some additional bleeding. There is no obvious hematoma or blood collection, but she has got a very large thigh which makes detection difficult. I do not see any signs of active bleeding. PLAN: 1. DVT prophylaxis including thigh-high TEDs, SCDs, and will continue Xarelto. She cannot really take aspirin due to her kidney issues. 2. PT/OT. Weight bear as tolerated. 3. Pain control. She is doing well with pain control. Really not require much pain medicine. 4. Anemia. Will continue iron supplementation. I am going to give her a unit of blood today and we really need her hemoglobin stabilized before discharge. 5. Disposition: We are just going to wait for things to stabilize with her hemoglobin and hematocrit. Hopefully, things will be improved tomorrow. She is still having drainage and will cover with p.o. Keflex until the drainage stops. This is not unusual based on her size.
[2019-01-06] MEDS ORDERED: INFLUENZA ADMINISTRATION CHARGE ONE (13:45)
[2019-01-06] MEDS ORDERED: INFLUENZA VIRUS QUAD VACCINE 0.5 ML SYR IM ONE (13:45)
[2019-01-06] MEDS: FLUOXETINE HCL 20 MG CAP PO SCH (20:26)
[2019-01-06] MEDS: MONTELUKAST SODIUM 10 MG TABLET PO SCH (20:26)
[2019-01-06] MEDS: SENNA 8.6 MG TAB PO SCH (20:26)
[2019-01-06] MEDS: MICONAZOLE NITRATE POWDER 43 GM EXT PRN (20:27)
[2019-01-06] MEDS: GABAPENTIN 600 MG TAB PO SCH (20:27)
[2019-01-06 23:12] VITALS: O2SAT 97
[2019-01-07] MEDS: ACETAMINOPHEN 500 MG TAB PO SCH (05:33)
[2019-01-07] MEDS: LEVOTHYROXINE SODIUM 75 MCG TABLET PO SCH (05:33)
[2019-01-07] MEDS: CHOLECALCIFEROL 1,000 UNITS TAB PO SCH (07:38)
[2019-01-07] MEDS: PANTOprazole 40 MG TAB PO SCH (07:38)
[2019-01-07] MEDS: GABAPENTIN 300 MG CAP PO SCH (07:38)
[2019-01-07] MEDS: RIVAROXABAN 10 MG TABLET PO SCH (07:39)
[2019-01-07] MEDS: DOCUSATE SODIUM 100 MG CAP PO SCH (07:39)
[2019-01-07] MEDS: hydroCHLOROthiazide 25 MG TAB PO SCH (07:40)
[2019-01-07] MEDS: LORATADINE 10 MG TAB PO SCH (07:41)
[2019-01-07] MEDS: LISINOPRIL 10 MG TAB PO SCH (07:41)
[2019-01-07] MEDS: MULTIVITAMIN TAB PO SCH (07:41)
[2019-01-07] MEDS: HYDROXYCHLOROQUINE SULFATE 200 MG TAB PO SCH (07:41)
[2019-01-07] MEDS: BuPROPion SR 150 MG TABCR PO SCH (07:41)
[2019-01-07] MEDS: cephALEXin 500 MG CAP PO SCH (07:42)
[2019-01-07] MEDS: ASCORBIC ACID 500 MG TAB PO SCH (07:42)
[2019-01-07] MEDS: FERROUS GLUCONATE 324 MG TAB PO SCH (07:45)
[2019-01-07] MEDS: TAPENTADOL HCL ER 50 MG TABCR PO SCH (07:55)
[2019-01-07 08:01] VITALS: BP 120/72; PULSE 61; TEMP 97.9
[2019-01-07 08:01] LABS: Basophils # (auto) 0.02 K/uL (0-0.2); Basophils % (auto) 0.3 %; Eosinophils # (auto) 0.54 K/uL (0-0.5); Hematocrit (blood only) 24.2 % (37-47); Hemoglobin 8.1 g/dL (12.0-16.0); Immature Granulocytes # (auto) 0.05 K/uL (0.00-0.02); Immature Granulocytes % (auto) 0.6 %; Lymphocytes # (auto) 1.38 K/uL (1.2-3.4); Lymphocytes % (auto) 17.8 %; Mean Corpuscular Hemoglobin 28.9 pg (25-34); Mean Corpuscular Hgb Conc 33.5 g/dL (32-36); Mean Corpuscular Volume 86.4 fL (80-100); Mean Platelet Volume 9.5 fL (7.4-10.4); Monocytes # (auto) 0.78 K/uL (0.11-0.59); Monocytes % (auto) 10.1 %; Neutrophils # (auto) 4.97 K/uL (1.4-6.5); Neutrophils % (auto) 64.2 %; Platelet Count 287 K/uL (130-400); RDW Coefficient of Variation 14.5 % (11.5-14.5); RDW Standard Deviation 46.3 fL (36.4-46.3); White Blood Count 7.74 K/uL (4.8-10.8)
[2019-01-07 08:29] LABS: BUN Creatinine Ratio 24.4 (10-20); Calcium 9.3 mg/dl (8.5-10.1); Creatinine Clr Calc Pharmacy 60.5 ml/min; Est GFR (African American) 56.3; Est GFR (Non-African American) 48.5; Potassium 4.3 mmol/L (3.5-5.1)
--- NOTE | 2019-01-07 15:14 | Progress Note ---
DATE: 01/07/2019 SUBJECTIVE: A 63-year-old female now 9 days out from a right total hip replacement complicated by postoperative dislocation in the hospital after a fall. She is doing well. She is kind of still feels kind of tired. Denies any chest pain or shortness of breath. Not feeling dizzy or lightheaded. Pain is controlled. OBJECTIVE: VITAL SIGNS: Temperature 36.6. Vital signs stable. GENERAL: Shows a pleasant, middle-aged female. I did wake her this morning. She looks comfortable. EXTREMITIES: Examination of the right hip reveals the leg lengths to be equal. Dressings in place and just been changed which are extremely dry. Swelling seems to be slightly improved from the past day or two. She is neurologically intact. LABORATORY DATA: Hemoglobin is 8.1. Hematocrit 24.2. ASSESSMENT: A 63-year-old female now 9 days out from a total hip replacement complicated by postoperative dislocation, doing reasonably well. Hip clinically looks to be doing well. She has a very large soft tissue envelope and had some drainage, but seems to be decreasing. No drainage on her dressing currently, but she just have this changed within the past hour or two. Her hemoglobin now appears pretty stable. She has been asymptomatic throughout, but it has gotten a bit low. It seems stable and her vital signs are stable. PLAN: 1. DVT prophylaxis including thigh-high TEDs, SCDs, and Xarelto for 1 month. 2. PT/OT. Weight bear as tolerated. Right total hip protocol. 3. Pain control, doing well with current pain regimen. 4. Disposition: We are hoping to discharge to a senior living facility today.
== END 2019-01-07 14:40 | DRG 470 ==
LOC: ASU 05:19 → 3E 08:56

== ENCOUNTER 2019-08-16 12:42 | Observation (INO) ==
[2019-08-16] MEDS ORDERED: ACETAMINOPHEN 500 MG TAB PO STA (13:02)
--- NOTE | 2019-08-16 13:11 | Emergency Department Note ---
History of Present Illness General Chief Complaint: Abdominal Pain Stated Complaint: ABDOMINAL PAIN Time Seen by Provider: 08/16/19 12:56 Source: patient Mode of arrival: ambulatory Limitations: no limitations History of Present Illness Provider Complaint: abdominal pain Onset (ago): 10 hour(s) Pain Consistency: constant Location: LLQ and RLQ Radiation: none Migration to: no migration Severity: moderate Maximum Pain Intensity: 5 Quality: + fullness Relieved By: + nothing Exacerbated By: + nothing Context: no foreign travel and no recent antibiotic use Associated Symptoms: denies other symptoms This is a 63-year-old female who presents to the ED with a chief complaint of abdominal pain. Her pain has been present throughout the entire night. She reports it is a pressure sensation in the lower abdomen. She denies any nausea, vomiting or diarrhea or constipation. Her last normal bowel movement was yesterday. She has history of IBS. She also reports some upper arm pain that is related to her chronic polymyalgia. She states that this seems a little worse than his baseline but today seems about normal. She does have history of cholecystectomy. Home Medications Home Medications Medication Instructions Recorded Confirmed Type bupropion HCl 150 mg PO QAM 08/08/18 08/16/19 History cholecalciferol (vitamin D3) 5,000 unit PO QAM 08/08/18 08/16/19 History [Vitamin D3] fluoxetine 60 mg PO HS 08/08/18 08/16/19 History gabapentin 300 mg PO QAM 08/08/18 08/16/19 History gabapentin 600 mg PO QPM 08/08/18 08/16/19 History hydrochlorothiazide 12.5 mg PO QAM 08/08/18 08/16/19 History hydroxychloroquine 400 mg PO QAM 08/08/18 08/16/19 History levothyroxine 75 mcg PO QAM 08/08/18 08/16/19 History lisinopril 10 mg PO QAM 08/08/18 08/16/19 History loratadine 10 mg PO QAM 08/08/18 08/16/19 History montelukast 10 mg PO QPM 08/08/18 08/16/19 History multivitamin 2 tab PO QAM 09/21/18 08/16/19 History omeprazole 20 mg tablet,delayed 20 mg PO QAM #30 tab 07/02/19 08/16/19 Rx release Allergies Allergy/AdvReac Type Severity Reaction Status Date / Time NSAIDS (Non-Steroidal Allergy Severe advised to Verified 08/16/19 14:03 Anti-Inflamma avoid d/t kidney disease adhesive Allergy Mild Rash Verified 08/16/19 14:03 latex Allergy Mild skin Verified 08/16/19 14:03 irritation nickel Allergy Mild redness Verified 08/16/19 14:03 and puffiness procaine Allergy Unknown shaking Verified 08/16/19 14:03 and increased peeing with novacaine aspirin AdvReac Mild Gastrointestinal Verified 08/16/19 14:03 Upset clarithromycin AdvReac Mild abdominal Verified 08/16/19 14:03 discomfort codeine AdvReac Unknown stomach Verified 08/16/19 14:03 burning, nervous Past Med/Surg History Medical History Asthma stable; no inhalers Depression Gastritis 09/2018 - started on PPI GERD (gastroesophageal reflux disease) occasional Hypertension Hypothyroidism Kidney disease, chronic, stage IV (GFR 15-29 ml/min) under surveillance; not on dialysis Morbid obesity Polymyalgia rheumatica on hydroxychloroquine Surgical History History of appendectomy History of cholecystectomy History of colonoscopy History of dental surgery dental implants History of endometrial ablation History of esophagogastroduodenoscopy (EGD) History of laparoscopy multiple--endometriosis History of nasal polypectomy x2 History of phacoemulsification of cataract of both eyes with intraocular lens implantation History of removal of cyst LEFT FOOT History of right hip replacement (Resolved) History of right oophorectomy History of tonsillectomy History of total left knee replacement (TKR) x2 History of total right knee replacement (TKR) History of wisdom tooth extraction Family History Other Family history not known due to adoption Social History Preferred Language: Czech Communication Ability: Effective Credit Collections Rep Required: No Beliefs That Will Affect Care: None Current Living Situation: Significant Other Feels Safe at Home: Yes Smoking Status: Never smoker Second Hand Exposure: No ; Hx Alcohol Use: Yes Alcohol type: other Hx Substance Use: No Review of Systems A total of 10 systems reviewed and were otherwise negative Physical Exam Vital Signs: Vital Signs - 24 hr 08/16/19 12:51 Temperature 36.5 C Temperature Source Oral Pulse Rate 54 L Pulse Rhythm Regular Pulse Strength Normal Respiratory Rate 16 Respiratory Effort / Characteristics Non-Labored Respiratory Depth Normal Respiratory Patter n Regular Blood Pressure 154/79 H Blood Pressure Edith n 104 Blood Pressure Pos ition Sitting Pulse Oximetry 96 Oxygen Delivery Me thod Room Air Sepsis Recent Feve r Within 48 Hours No Sepsis New/Unexpla ined Change in Men rosalia Status No Sepsis Action Take n by Nursing No Action Required Physical Exam: CONSTITUTIONAL/VITAL SIGNS: Reviewed / noted above. GENERAL: Non-toxic in appearance. INTEGUMENTARY: Warm, dry, and [place]. HEAD: Normocephalic. EYES: without scleral icterus or trauma. ENT/OROPHARYNX: clear and moist. LYMPHADENOPATHY/NECK: Is supple without lymphadenopathy or meningismus. RESPIRATORY: Lungs clear and equal. CARDIOVASCULAR: Regular rate and rhythm. GI/ABDOMEN: Soft and mildly tender in the lower abdomen. No organomegaly or pulsatile mass. No rebound or guarding. Normal bowel sounds. EXTREMITIES: Warm and well perfused. BACK: No CVA tenderness. NEUROLOGICAL: Intact without focal deficits. PSYCHIATRIC: normal affect. MUSCULOSKELETAL: Normally developed with good muscle tone. TRIAGE NURSING DOCUMENTATION REVIEWED. Course Administered Medications Ioversol (Optiray 320 100ml) 94 ml IV ONCE PRN PRN Reason: Interaction Checking Stop: 08/20/19 14:29 Last Admin: 08/16/19 14:30 Dose: 94 ml Documented by: [id number] Discontinued Medications Acetaminophen (Tylenol) 500 mg PO NOW STA Stop: 08/16/19 13:03 Last Admin: 08/16/19 13:20 Dose: 500 mg Documented by: [id number] Medical Decision Making Differential Diagnosis Differential considered: pancreatitis, hepatitis, AAA, UTI, pyelonephritis, kidney stones, appendicitis, diverticulitis, shingles, bowel obstruction, mesenteric ischemia, intussusception,hernia, testicular torsion, ovarian torsion, ruptured ovarian cyst,ectopic , . Medical Records Attestation: I reviewed the patient's medical records. Home Medications Current Medication List: was personally reviewed by me Laboratory Data Attestation: I reviewed the patient's lab results. Result diagrams: 08/16/19 13:20 08/16/19 13:20 Lab Results 08/16/19 08/16/19 08/16/19 Range/Units 13:20 13:20 13:25 WBC 6.14 (4.8-10.8) K/uL RBC 4.13 L (4.2-5.4) M/uL Hgb 11.8 L (12.0-16.0) g/dL Hct 36.0 L (37-47) % MCV 87.2 (80-100) fL MCH 28.6 (25-34) pg MCHC 32.8 (32-36) g/dL RDW Std Deviation 50.9 H (36.4-46.3) fL RDW Coeff of Flako 15.7 H (11.5-14.5) % Plt Count 212 (130-400) K/uL MPV 11.0 H (7.4-10.4) fL Immature Gran % (Auto) 0.2 % Neut % (Auto) 66.8 % Lymph % (Auto) 21.8 % Powell % (Auto) 6.8 % Eos % (Auto) 3.9 % Baso % (Auto) 0.5 % Immature Gran # (Auto) 0.01 (0.00-0.02) K/uL Neut # (Auto) 4.10 (1.4-6.5) K/uL Lymph # (Auto) 1.34 (1.2-3.4) K/uL Powell # (Auto) 0.42 (0.11-0.59) K/uL Eos # (Auto) 0.24 (0-0.5) K/uL Baso # (Auto) 0.03 (0-0.2) K/uL Sodium 140 (136-145) mmol/L Potassium 4.1 (3.5-5.1) mmol/L Chloride 108 H (98-107) mmol/L Carbon Dioxide 27 (21-32) mmol/L Anion Gap 5.0 (3-11) BUN 26 H (7-18) mg/dl Creatinine 1.47 H (0.6-1.2) mg/dl Est Cr Clr Drug Dosing 48.4 ml/min Est GFR ( Amer) 43.6 Est GFR (Non-Af Amer) 37.6 BUN/Creatinine Ratio 17.6 (10-20) Glucose 92 (70-99) mg/dl Lactate (0.4-2.0) mmol/L Calcium 9.3 (8.5-10.1) mg/dl Total Bilirubin 0.7 (0.2-1) mg/dl AST 17 (15-37) U/L ALT 19 (12-78) U/L Alkaline Phosphatase 90 (45-117) U/L Total Protein 6.9 (6.4-8.2) gm/dl Albumin 3.3 L (3.4-5.0) gm/dl Globulin 3.6 (2.5-4.0) gm/dl Albumin/Globulin Ratio 0.9 (0.9-2) Lipase 140 (73-393) U/L Urine Color Yellow Urine Appearance Clear (Clear) Urine pH 5.0 (4.5-7.5) Ur Specific [place] 1.017 (1.000-1.030) Urine Protein Negative (Negative) Urine Glucose (UA) Negative (Negative) Urine Ketones Negative (Negative) Urine Blood Negative (Negative) Urine Nitrite Negative (Negative) Urine Bilirubin Negative (Negative) Urine Urobilinogen Negative (Negative) Ur Leukocyte Esterase Trace H (Negative) Urine WBC (Auto) 1-5 (0-5) /hpf Urine RBC (Auto) 0-4 (0-4) /hpf U Hyaline Cast (Auto) 5-10 H (0-5) /lpf U Epithel Cells (Auto) 20-30 H (0-5) /lpf Urine Bacteria (Auto) Negative (Negative) 08/16/19 Range/Units 14:24 WBC (4.8-10.8) K/uL RBC (4.2-5.4) M/uL Hgb (12.0-16.0) g/dL Hct (37-47) % MCV (80-100) fL MCH (25-34) pg MCHC (32-36) g/dL RDW Std Deviation (36.4-46.3) fL RDW Coeff of Flako (11.5-14.5) % Plt Count (130-400) K/uL MPV (7.4-10.4) fL Immature Gran % (Auto) % Neut % (Auto) % Lymph % (Auto) % Powell % (Auto) % Eos % (Auto) % Baso % (Auto) % Immature Gran # (Auto) (0.00-0.02) K/uL Neut # (Auto) (1.4-6.5) K/uL Lymph # (Auto) (1.2-3.4) K/uL Powell # (Auto) (0.11-0.59) K/uL Eos # (Auto) (0-0.5) K/uL Baso # (Auto) (0-0.2) K/uL Sodium (136-145) mmol/L Potassium (3.5-5.1) mmol/L Chloride (98-107) mmol/L Carbon Dioxide (21-32) mmol/L Anion Gap (3-11) BUN (7-18) mg/dl Creatinine (0.6-1.2) mg/dl Est Cr Clr Drug Dosing ml/min Est GFR ( Amer) Est GFR (Non-Af Amer) BUN/Creatinine Ratio (10-20) Glucose (70-99) mg/dl Lactate 0.8 (0.4-2.0) mmol/L Calcium (8.5-10.1) mg/dl Total Bilirubin (0.2-1) mg/dl AST (15-37) U/L ALT (12-78) U/L Alkaline Phosphatase (45-117) U/L Total Protein (6.4-8.2) gm/dl Albumin (3.4-5.0) gm/dl Globulin (2.5-4.0) gm/dl Albumin/Globulin Ratio (0.9-2) Lipase (73-393) U/L Urine Color Urine Appearance (Clear) Urine pH (4.5-7.5) Ur Specific [place] (1.000-1.030) Urine Protein (Negative) Urine Glucose (UA) (Negative) Urine Ketones (Negative) Urine Blood (Negative) Urine Nitrite (Negative) Urine Bilirubin (Negative) Urine Urobilinogen (Negative) Ur Leukocyte Esterase (Negative) Urine WBC (Auto) (0-5) /hpf Urine RBC (Auto) (0-4) /hpf U Hyaline Cast (Auto) (0-5) /lpf U Epithel Cells (Auto) (0-5) /lpf Urine Bacteria (Auto) (Negative) Imaging Data Radiologist's Impression: 1. Significant wall thickening of small bowel loops in the central abdomen and superior pelvis with extensive associated infiltrative changes in the small bowel mesentery and interloop fluid. Findings are concerning for moderate to severe enteritis. Ischemic etiology is not excluded though the findings could be infectious or inflammatory. Mesenteric Doppler ultrasound may be useful if the patient cannot receive contrast and ischemia is considered. 2. Small volume ascites. CT scan with IV contrast of the abdomen pelvis: IMPRESSION: 1. Preserved enhancement of the abnormal loops of small bowel with patent central arterial vasculature and patent superior mesenteric vein. Findings argue against an ischemic etiology. Infectious or inflammatory enteritis favored. Blood Pressure Blood Pressure Findings: Elevated blood pressure Blood Pressure Disposition: further management by hospitalist DEBBIE Lindquist This is a 63-year-old female who presents to the ED with a chief complaint of abdominal pain. Her pain has been present throughout the entire night. She reports it is a pressure sensation in the lower abdomen. She denies any nausea, vomiting or diarrhea or constipation. Her last normal bowel movement was yesterday. She has history of IBS. She also reports some upper arm pain that is related to her chronic polymyalgia. She states that this seems a little worse than his baseline but today seems about normal. She does have history of cholecystectomy. The patient exam reveals some mid to lower abdominal tenderness. A CT scan of the abdomen pelvis reveals moderate to severe enteritis with extensive infiltrative changes in the small bowel of the central abdomen and superior pelvis. A CT scan with contrast suggest that this is not ischemic in nature. Lactate level is normal. The patient CBC and chemistry panel was unremarkable. Slight elevation of the BUN and creatinine. Urine did not show infection. Because of the abnormal findings, the patient will require further evaluation and care to discover the cause and appropriate treatment. The patient will be seen by the hospitalist for further evaluation and care. Impression & Plan Enteritis, Abdominal pain Discharge Plan Visit Data Chief Complaint: Abdominal Pain Stated Complaint: ABDOMINAL PAIN ED Provider: Devan Ascencio Discharge Problem: Enteritis, Abdominal pain Forms Stand Alone Forms: [employer] Prescriptions Prescriptions: No Action omeprazole 20 mg tablet,delayed release (DR/EC) 20 mg PO QAM Qty: 30 RF: 5 levothyroxine 75 mcg tablet 75 mcg PO QAM RF: 0 lisinopril 10 mg tablet 10 mg PO QAM RF: 0 hydrochlorothiazide 12.5 mg capsule 12.5 mg PO QAM RF: 0 gabapentin 300 mg capsule 600 mg PO QPM RF: 0 montelukast 10 mg tablet 10 mg PO QPM RF: 0 hydroxychloroquine 200 mg tablet 400 mg PO QAM RF: 0 fluoxetine 20 mg capsule 60 mg PO HS RF: 0 bupropion HCl 150 mg tablet sustained-release 12 hr 150 mg PO QAM RF: 0 gabapentin 300 mg Capsule 300 mg PO QAM RF: 0 loratadine 10 mg Tablet 10 mg PO QAM RF: 0 cholecalciferol (vitamin D3) [Vitamin D3] 5,000 unit Tablet 5,000 unit PO QAM RF: 0 multivitamin Tablet 2 tab PO QAM RF: 0 Discharge Problem: Abdominal pain Qualifiers: Abdominal location: generalized Qualified Code(s): R10.84 - Generalized abdominal pain
[2019-08-16 13:42] LABS: Basophils # (auto) 0.03 K/uL (0-0.2); Basophils % (auto) 0.5 %; Eosinophils # (auto) 0.24 K/uL (0-0.5); Eosinophils % (auto) 3.9 %; Hemoglobin 11.8 g/dL (12.0-16.0); Immature Granulocytes # (auto) 0.01 K/uL (0.00-0.02); Immature Granulocytes % (auto) 0.2 %; Lymphocytes # (auto) 1.34 K/uL (1.2-3.4); Lymphocytes % (auto) 21.8 %; Mean Corpuscular Hemoglobin 28.6 pg (25-34); Mean Corpuscular Hgb Conc 32.8 g/dL (32-36); Mean Corpuscular Volume 87.2 fL (80-100); Monocytes # (auto) 0.42 K/uL (0.11-0.59); Monocytes % (auto) 6.8 %; Neutrophils % (auto) 66.8 %; Platelet Count 212 K/uL (130-400); RDW Coefficient of Variation 15.7 % (11.5-14.5); RDW Standard Deviation 50.9 fL (36.4-46.3); Red Blood Count 4.13 M/uL (4.2-5.4); White Blood Count 6.14 K/uL (4.8-10.8)
[2019-08-16 13:59] LABS: Appearance Urine Clear (Clear); Bacteria Urine Automated Negative (Negative); Bilirubin Urine Negative (Negative); Blood Urine Negative (Negative); Color Urine Yellow; Epithelial Cell Urine Auto 20-30 /lpf (0-5); Glucose Urine UA Negative (Negative); Ketones Urine Negative (Negative); Leukocyte Esterase Urine Trace (Negative); Nitrite Urine Negative (Negative); Protein Urine Negative (Negative); RBC Urine Automated 0-4 /hpf (0-4); Specific Gravity Urine 1.017 (1.000-1.030); Urobilinogen Urine Negative (Negative)
--- NOTE | 2019-08-16 14:01 | CT Scan Report ---
CT abd pelvis wo con CLINICAL HISTORY: 63 years-old Female presenting with LOWER ABD PAIN, right-sided pain below the [address]. TECHNIQUE: Multidetector CT of the abdomen and pelvis was performed without the use of intravenous co ntrast. IV contrast: None. One or more dose lowering techniques were used consistent with the princip les of ALARA (as low as reasonably achievable), including automatic exposure control, mA or kV adjust ment to individual patient size, and/or use of iterative reconstruction. COMPARISON: None. CT DOSE (mGy.cm): The estimated cumulative dose is 1159.24 mGy.cm. 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 Total right hip arthroplasty. Lung bases: Normal heart size. No pericardial or pleural effusion. No focal infiltrate or nodule at t he lung bases. Liver: Normal morphology. Normal density. Biliary: Mild biliary ductal prominence likely a reservoir effect in the post cholecystectomy state. Gallbladder surgically absent. Pancreas: Normal noncontrast appearance. Spleen: Normal noncontrast appearance. Adrenal glands: Normal noncontrast appearance. Kidneys and ureters: Normal noncontrast appearance. No nephrolithiasis. No hydronephrosis. Normal ure ters. Bladder: Normal noncontrast appearance. Pelvic organs: Normal noncontrast appearance. Bowel: Normal appendix. No bowel obstruction. Wall thickening of small bowel loops in the central abd omen with perienteric fat stranding. Fecalization of these bowel loops, which appear to be in the mid to distal ileum. No convincing evidence of pneumatosis. Peritoneal cavity: Moderate volume fluid in the pelvis, which is grossly simple appearing. There is a lso interloop fluid in the superior pelvis and central abdomen at the level of the small bowel wall t hickening. Infiltration of the small bowel mesentery. No free intraperitoneal gas. Lymph nodes: No gross lymphadenopathy allowing for noncontrast technique. Vasculature: Atherosclerosis of the normal caliber abdominal aorta. Abdominal wall: Normal. Musculoskeletal: Degenerative changes of the spine. Total right hip arthroplasty. IMPRESSION: 1. Significant wall thickening of small bowel loops in the central abdomen and superior pelvis with extensive associated infiltrative changes in the small bowel mesentery and interloop fluid. Findings are concerning for moderate to severe enteritis. Ischemic etiology is not excluded though the finding s could be infectious or inflammatory. Mesenteric Doppler ultrasound may be useful if the patient can not receive contrast and ischemia is considered. 2. Small volume ascites. The report will be called/faxed according to standard departmental protocol. ACT 112: Negative or not required by law. Electronically signed by: Valente Christian M.D. 08/16/2019 1:59 PM
[2019-08-16 14:02] LABS: Albumin Level 3.3 gm/dl (3.4-5.0); BUN Creatinine Ratio 17.6 (10-20); Calcium 9.3 mg/dl (8.5-10.1); Creatinine Clr Calc Pharmacy 48.4 ml/min; Est GFR (African American) 43.6; Est GFR (Non-African American) 37.6; Potassium 4.1 mmol/L (3.5-5.1)
[2019-08-16] MEDS ORDERED: IOVERSOL 100ml IV PRN (14:30)
[2019-08-16 14:37] LABS: Albumin Globulin Ratio 0.9 (0.9-2); Bilirubin,Total 0.7 mg/dl (0.2-1); Globulin 3.6 gm/dl (2.5-4.0); Total Protein 6.9 gm/dl (6.4-8.2)
--- NOTE | 2019-08-16 14:48 | CT Scan Report ---
CT abd pelvis IV con only CLINICAL HISTORY: 63 years-old Female presenting with small bowel wall thickening on noncontrast CT, contrast enhanced CT for further evaluation, R/O mesenteric ISCHEMIA. TECHNIQUE: Multidetector CT of the abdomen and pelvis was performed after the administration of intra venous contrast. IV contrast: 94 mL of Optiray 320. One or more dose lowering techniques were used co nsistent with the principles of ALARA (as low as reasonably achievable), including automatic exposure control, mA or kV adjustment to individual patient size, and/or use of iterative reconstruction. COMPARISON: 08/16/2019 at 1:[address] DOSE (mGy.cm): The estimated cumulative dose is 1288.38 mGy.cm. FINDINGS: Insurance Verification Rep topogram: Cholecystectomy clips. Total right hip arthroplasty. Lung bases: Normal heart size. No pericardial or pleural effusion. Minimal dependent changes likely a telectasis. Liver: Normal morphology. No liver lesion. Patent hepatic vasculature. Biliary: Mild biliary ductal prominence likely a reservoir effect in the post cholecystectomy state. Gallbladder surgically absent. Pancreas: Normal. Spleen: Normal. Adrenal glands: Normal. Kidneys and ureters: Normal. No hydronephrosis. Bladder: Incompletely evaluated secondary to underdistention. Pelvic organs: Uterus and ovaries normal. Bowel: Normal appendix. No bowel obstruction. Wall thickening of small bowel loops in the central abd omen with perienteric fat stranding. Fecalization of these bowel loops, which appear to be in the mid to distal ileum. Preserved enhancement of the affected small bowel loops allowing for the degree of wall thickening and the presence of submucosal edema. Peritoneal cavity: Small volume ascites with moderate fluid in the pelvis and perihepatic and perispl enic fluid. Fluid is grossly simple appearing. Lesser degree of interloop fluid in the central abdome n associated small bowel wall thickening. No free intraperitoneal gas. No pneumatosis. Lymph nodes: No enlarged lymph nodes in the abdomen or pelvis. Vasculature: Atherosclerosis of the normal caliber abdominal aorta. Allowing for the phase of contras t, the celiac and superior mesenteric arteries are widely patent. Inferior mesenteric artery and rachel l arteries also patent. No evidence of significant atherosclerotic plaque burden along the mesenteric vessels. IVC patent. Superior mesenteric vein also patent. Abdominal wall: Normal. Musculoskeletal: Degenerative changes of the spine. Total right hip arthroplasty. IMPRESSION: 1. Preserved enhancement of the abnormal loops of small bowel with patent central arterial vasculatu re and patent superior mesenteric vein. Findings argue against an ischemic etiology. Infectious or in flammatory enteritis favored. 2. Abdominopelvic ascites is presumably reactive. ACT 112: Negative or not required by law. Electronically signed by: Valente Christian M.D. 08/16/2019 2:47 PM
--- NOTE | 2019-08-16 15:40 | History & Physical Report ---
Date of Service August 16, 2019 Assessment & Plan (1) Enteritis: The patient's abdominal pain is 2nd to the mod-severe enteritis as seen on CT today. I would favor infection as the etiology of the enteritis given the acute nature. The abdominal vasculature is all patent which would argue against ischemic although it can be entirely excluded. IBD is unlikely given the acuity of her pain/symptoms. A viral etiology would be most common to cause enteritis but bacterial causes are also possible. In light of change in taste, subjective fevers/chills, daughter traveling from [place] recently to stay with her, etc - will check COVID-[address] in isolation until test has returned. There have been cases of COVID-19 dominated by GI symptomatology rather than pulmonary symptoms. If she has stool will check c diff and stool culture. If pain worsens - consider diagnostic paracentesis of ascites fluid under u/s- guidance by radiology?? uncertain if enough fluid is present to tap. My suspicion is that the fluid is reactive to the enteritis. I have asked Dr Oro to see in consult tomorrow. Overnight - keep NPO, IVF, pain meds. Consider clears in am. Repeat labs in am. (2) Abdominal pain: see discussion above (3) Loss of taste: see discussion above (4) GERD (gastroesophageal reflux disease): cont PPI - give IV (5) Hypothyroidism: TSH 12/2018 was wnl can continue PO synthroid for now (6) Hypertension: BPs mod-severely elevated at time of presentation today. Cont home meds. Patient reports her BPs often rise in clinical situations. Pain may also be contributing. Adjust meds as needed. (7) Depression: Cont home meds (8) Polymyalgia rheumatica: Takes chronic plaquenil for such (9) Asthma: no symptoms at this time with normal O2 sats (10) Chronic kidney disease, stage 3a: Cr at baseline of 1.3-1.4 today hydrate, repeat BMP in am for stability (11) DVT prophylaxis: lovenox 40mg daily place on observation status for now History of Present Illness Chief Complaint: abdominal pain Primary Care Provider: Kaylee Romano MD 63yo female with history of PMR on plaquenil, hypothyroidism, and HTN who presents with the acute onset of abdominal pain starting about midnight last pm. Feels quite bloated, and pain was constant all night preventing her from sleeping. She felt like she had to have a bowel movement multiple times through the night but when she attempted to do so nothing came out. No nausea. Had subjective fever in the middle of the night and upon awakening this am felt cold. She continues to feel cold at this time. No recent travel or obvious sick contacts. Her adopted daughter, however, started to stay with her about 2 weeks ago after the daughter moved from [facility]. Last pm while eating dinner - which was hours before the abdominal pain started - she began to have a slight change in taste. The food "simply didn't taste right." She questioned her boyfriend and daughter who stated the food was fine. No change in smell. She mentions that for the last 1-2 weeks her appetite has been "off" and she has been skipping 1-2 meals/day because of not feeling right. Denies any cough, dyspnea, or chest pain. No myalgias. She did have a "funny feeling" in her right hand overnight but not the left hand. Allergies Allergy/AdvReac Type Severity Reaction Status Date / Time NSAIDS (Non-Steroidal Allergy Severe advised to Verified 08/16/19 14:03 Anti-Inflamma avoid d/t kidney disease adhesive Allergy Mild Rash Verified 08/16/19 14:03 latex Allergy Mild skin Verified 08/16/19 14:03 irritation nickel Allergy Mild redness Verified 08/16/19 14:03 and puffiness procaine Allergy Unknown shaking Verified 08/16/19 14:03 and increased peeing with novacaine aspirin AdvReac Mild Gastrointestinal Verified 08/16/19 14:03 Upset clarithromycin AdvReac Mild abdominal Verified 08/16/19 14:03 discomfort codeine AdvReac Unknown stomach Verified 08/16/19 14:03 burning, nervous Home Medications Home Medications Medication Instructions Recorded Confirmed Type bupropion HCl 150 mg PO QAM 08/08/18 08/16/19 History cholecalciferol (vitamin D3) 5,000 unit PO QAM 08/08/18 08/16/19 History [Vitamin D3] fluoxetine 60 mg PO HS 08/08/18 08/16/19 History gabapentin 300 mg PO QAM 08/08/18 08/16/19 History gabapentin 600 mg PO QPM 08/08/18 08/16/19 History hydrochlorothiazide 12.5 mg PO QAM 08/08/18 08/16/19 History hydroxychloroquine 400 mg PO QAM 08/08/18 08/16/19 History levothyroxine 75 mcg PO QAM 08/08/18 08/16/19 History lisinopril 10 mg PO QAM 08/08/18 08/16/19 History loratadine 10 mg PO QAM 08/08/18 08/16/19 History montelukast 10 mg PO QPM 08/08/18 08/16/19 History multivitamin 2 tab PO QAM 09/21/18 08/16/19 History omeprazole 20 mg tablet,delayed 20 mg PO QAM #30 tab 07/02/19 08/16/19 Rx release Past Med/Surg History Medical History Asthma stable; no inhalers Depression Gastritis 09/2018 - started on PPI GERD (gastroesophageal reflux disease) occasional Hypertension Hypothyroidism Kidney disease, chronic, stage IV (GFR 15-29 ml/min) under surveillance; not on dialysis Morbid obesity Polymyalgia rheumatica on hydroxychloroquine Surgical History History of appendectomy History of cholecystectomy History of colonoscopy History of dental surgery dental implants History of endometrial ablation History of esophagogastroduodenoscopy (EGD) History of laparoscopy multiple--endometriosis History of nasal polypectomy x2 History of phacoemulsification of cataract of both eyes with intraocular lens implantation History of removal of cyst LEFT FOOT History of right hip replacement (Resolved) History of right oophorectomy History of tonsillectomy History of total left knee replacement (TKR) x2 History of total right knee replacement (TKR) History of wisdom tooth extraction Family History Other Family history not known due to adoption Social History (Updated 08/16/19 @ 17:56 by Matheus Zuniga) Preferred Language: Luxembourger Communication Ability: Effective Supervisor Compounding And Finishing Required: No Beliefs That Will Affect Care: None marital status: Single marital status details: has boyfriend Current Living Situation: Significant Other current occupational status: 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 Other Information That Helps Us Care for You: No other: 2 adopted children Feels Safe at Home: Yes Safety Concerns: Feels Safe At This Time Smoking Status: Never smoker Second Hand Exposure: No ; Hx Alcohol Use: Yes Alcohol type: other Alcohol Intake Frequency: Holidays/Special Occasions Hx Substance Use: No Review of Systems Constitutional: + fever (subjective ), + chills (this am ), + fatigue, + malaise and + anorexia; no body aches and no weight loss Eyes: no discharge and no worsening vision Ear, Nose, Mouth, Throat: + nasal discharge (due to chronic allergies ); no sore throat no loss of smell, but change in taste over last 24 hours Respiratory: no cough and no dyspnea Cardiovascular: no chest pain, no orthopnea, no paroxysmal nocturnal dyspnea and no edema Gastrointestinal: + abdominal pain, + bloating, + nausea and + constant urge to pass stools (but no stools actually passed ); no belching, no heartburn, no vomiting, no diarrhea/loose stools and no blood in stools Genitourinary: no dysuria Musculoskeletal: + joint pain (knees - chronic ); no myalgia Integumentary: no rash Neurologic: no localized weakness Psychiatric: no depression and no anxiety Endocrine: denies diabetes Hematologic / Lymphatic: no easy bleeding and no easy bruising Allergy / Immunological: + seasonal rhinorrhea Physical Exam Constitutional: + frail appearing; no acute distress and no altered mental status looks ill but nontoxic Eyes: + anicteric sclerae and PERRL ENMT: external ear and nose normal, oropharynx normal Neck: trachea midline, no thyromegaly Respiratory: normal respiratory effort, lungs clear to auscultation Cardiovascular: Rate/Rhythm: regular rate and regular rhythm Heart Sounds: normal S1 and normal S2; no murmur Vessels: posterior tibial pulses present and dorsalis pedis pulses present; no JVD Extremities: no edema Gastrointestinal (Abdomen): Inspection/Auscultation: + abdomen distended (mild) and normal bowel sounds Percussion/Palpation: + abdomen tender (minimal central abdomen ); no guarding, abdomen not rigid and no hepatosplenomegaly Musculoskeletal: no cyanosis or clubbing, extremities motor strength 5/5 Skin: no rashes, warm and dry Neurologic: deep tendon reflexes 2+ bilaterally and moves all extremities; no focal motor deficits Psychiatric: Orientation: alert and oriented x 3 Lymphatic: no cervical lymphadenopathy Results & Data Results & Data ([facility]) Vital Signs (Past 12 Hours) Vital Signs Temp Pulse Resp BP Pulse Ox 08/16/19 12:51 36.5 C 54 L 16 154/79 H 96 Laboratory Results Laboratory Results - last 24 hr 08/16/19 08/16/19 08/16/19 13:20 13:20 13:20 WBC 6.14 RBC 4.13 L Hgb 11.8 L Hct 36.0 L MCV 87.2 MCH 28.6 MCHC 32.8 RDW Std Deviation 50.9 H RDW Coeff of Flako 15.7 H Plt Count 212 MPV 11.0 H Immature Gran % (Auto) 0.2 Neut % (Auto) 66.8 Lymph % (Auto) 21.8 [place] % (Auto) 6.8 Eos % (Auto) 3.9 Baso % (Auto) 0.5 Immature Gran # (Auto) 0.01 Neut # (Auto) 4.10 Lymph # (Auto) 1.34 [place] # (Auto) 0.42 Eos # (Auto) 0.24 Baso # (Auto) 0.03 ESR 23 H Sodium 140 Potassium 4.1 Chloride 108 H Carbon Dioxide 27 Anion Gap 5.0 BUN 26 H Creatinine 1.47 H Est Cr Clr Drug Dosing 48.4 Est GFR ( Amer) 43.6 Est GFR (Non-Af Amer) 37.6 BUN/Creatinine Ratio 17.6 Glucose 92 Lactate Calcium 9.3 Magnesium Total Bilirubin 0.7 AST 17 ALT 19 Alkaline Phosphatase 90 C-Reactive Protein Total Protein 6.9 Albumin 3.3 L Globulin 3.6 Albumin/Globulin Ratio 0.9 Lipase 140 Urine Color Urine Appearance Urine pH Ur Specific [place] Urine Protein Urine Glucose (UA) Urine Ketones Urine Blood Urine Nitrite Urine Bilirubin Urine Urobilinogen Ur Leukocyte Esterase Urine WBC (Auto) Urine RBC (Auto) U Hyaline Cast (Auto) U Epithel Cells (Auto) Urine Bacteria (Auto) 08/16/19 08/16/19 08/16/19 13:20 13:25 14:24 WBC RBC Hgb Hct MCV MCH MCHC RDW Std Deviation RDW Coeff of [place]ako Plt Count MPV Immature Gran % (Auto) Neut % (Auto) Lymph % (Auto) [place] % (Auto) Eos % (Auto) Baso % (Auto) Immature Gran # (Auto) Neut # (Auto) Lymph # (Auto) [place] # (Auto) Eos # (Auto) Baso # (Auto) ESR Sodium Potassium Chloride Carbon Dioxide Anion Gap BUN Creatinine Est Cr Clr Drug Dosing Est GFR ( Amer) Est GFR (Non-Af Amer) BUN/Creatinine Ratio Glucose Lactate 0.8 Calcium Magnesium 2.3 Total Bilirubin AST ALT Alkaline Phosphatase C-Reactive Protein 0.95 H Total Protein Albumin Globulin Albumin/Globulin Ratio Lipase Urine Color Yellow Urine Appearance Clear Urine pH 5.0 Ur Specific [place] 1.017 Urine Protein Negative Urine Glucose (UA) Negative Urine Ketones Negative Urine Blood Negative Urine Nitrite Negative Urine Bilirubin Negative Urine Urobilinogen Negative Ur Leukocyte Esterase Trace H Urine WBC (Auto) 1-5 Urine RBC (Auto) 0-4 U Hyaline Cast (Auto) 5-10 H U Epithel Cells (Auto) 20-30 H Urine Bacteria (Auto) Negative Diagnostic Findings CT abd/pelvis #1 - IMPRESSION: 1. Significant wall thickening of small bowel loops in the central abdomen and superior pelvis with extensive associated infiltrative changes in the small bowel mesentery and interloop fluid. Findings are concerning for moderate to severe enteritis. Ischemic etiology is not excluded though the findings could be infectious or inflammatory. Mesenteric Doppler ultrasound may be useful if the patient cannot receive contrast and ischemia is considered. 2. Small volume ascites. CT abd/pelvis #2 - IMPRESSION: 1. Preserved enhancement of the abnormal loops of small bowel with patent central arterial vasculature and patent superior mesenteric vein. Findings argue against an ischemic etiology. Infectious or inflammatory enteritis favored. 2. Abdominopelvic ascites is presumably reactive. Code Status & VTE Plan Code Status full VTE Prophylaxis Plan VTE Prophylaxis will be ordered: Yes PG Care Time/CCT Total # of Minutes Spent Total Time Spent with Patient: Total time spent is greater than 50% in coordination of care (as documented) at patient's floor/unit and/or counseling patient: Coding Level of Care Code 54480 OBS Care - Level 3 Diagnoses Enteritis K52.9 Abdominal pain R10.84 Abdominal location: generalized Loss of taste R43.2 GERD (gastroesophageal reflux disease) K21.9 Esophagitis presence: esophagitis presence not specified Hypothyroidism E03.9 Hypothyroidism type: acquired Hypertension I10 Hypertension type: essential hypertension Depression F32.9 Depression Type: unspecified Polymyalgia rheumatica M35.3 Asthma J45.20 Asthma severity: mild Asthma persistence: intermittent Asthma complication type: uncomplicated Chronic kidney disease, stage 3a N18.3 DVT prophylaxis Z29.9 (1) Abdominal pain Abdominal location: generalized Qualified Code(s): R10.84 - Generalized abdominal pain (2) GERD (gastroesophageal reflux disease) Esophagitis presence: esophagitis presence not specified Qualified Code(s): K21.9 - Gastro-esophageal reflux disease without esophagitis (3) Hypothyroidism Hypothyroidism type: acquired Qualified Code(s): E03.9 - Hypothyroidism, unspecified (4) Hypertension Hypertension type: essential hypertension Qualified Code(s): I10 - Essential (primary) hypertension (5) Depression Depression Type: unspecified Qualified Code(s): F32.9 - Major depressive disorder, single episode, unspecified (6) Asthma Asthma severity: mild Asthma persistence: intermittent Asthma complication type: uncomplicated Qualified Code(s): J45.20 - Mild intermittent asthma, uncomplicated
[2019-08-16 16:57] LABS: C Reactive Protein 0.95 mg/dl (0-0.29); Magnesium 2.3 mg/dl (1.8-2.4)
[2019-08-16] MEDS ORDERED: PANTOprazole 40 MG in SYRINGE 0 ML IV SCH (19:16)
[2019-08-16] MEDS ORDERED: MoRPHine SULFATE 2 MG/ML CARP IV PRN (19:16)
[2019-08-16] MEDS ORDERED: ONDANSETRON INJ 2 MG/ML 2 ML VIAL IV PRN (19:16)
[2019-08-16] MEDS: ENOXAPARIN INJ 40 MG/0.4 ML SYR SQ SCH (20:51)
[2019-08-16] MEDS: D5NSS + 20MEQ KCL 20 MEQ/1,000 ML BAG IV SCH (20:51)
[2019-08-16] MEDS: FLUOXETINE HCL 20 MG CAP PO SCH (20:53)
[2019-08-16] MEDS: MONTELUKAST SODIUM 10 MG TABLET PO SCH (20:53)
[2019-08-16] MEDS: GABAPENTIN 300 MG CAP PO SCH (20:54)
[2019-08-16] MEDS ORDERED: FLUOXETINE HCL 20 MG CAP PO SCH (21:00)
[2019-08-16] MEDS ORDERED: GABAPENTIN 300 MG CAP PO SCH (21:00)
[2019-08-16] MEDS ORDERED: ENOXAPARIN INJ 40 MG/0.4 ML SYR SQ SCH (21:00)
[2019-08-16] MEDS: PANTOprazole 40 MG in SYRINGE 0 ML IV SCH (22:09)
[2019-08-17] MEDS: D5NSS + 20MEQ KCL 20 MEQ/1,000 ML BAG IV SCH ×2 (05:24→15:19)
[2019-08-17] MEDS ORDERED: LEVOTHYROXINE SODIUM 75 MCG TABLET PO SCH (06:30)
[2019-08-17 07:37] LABS: Basophils # (auto) 0.02 K/uL (0-0.2); Basophils % (auto) 0.4 %; Eosinophils # (auto) 0.35 K/uL (0-0.5); Eosinophils % (auto) 7.3 %; Hematocrit (blood only) 31.3 % (37-47); Hemoglobin 10.4 g/dL (12.0-16.0); Lymphocytes # (auto) 1.82 K/uL (1.2-3.4); Lymphocytes % (auto) 38.1 %; Mean Corpuscular Hemoglobin 29.1 pg (25-34); Mean Corpuscular Hgb Conc 33.2 g/dL (32-36); Mean Corpuscular Volume 87.4 fL (80-100); Mean Platelet Volume 10.8 fL (7.4-10.4); Monocytes # (auto) 0.34 K/uL (0.11-0.59); Monocytes % (auto) 7.1 %; Neutrophils # (auto) 2.25 K/uL (1.4-6.5); Neutrophils % (auto) 47.1 %; Platelet Count 185 K/uL (130-400); RDW Coefficient of Variation 15.8 % (11.5-14.5); RDW Standard Deviation 51.3 fL (36.4-46.3); Red Blood Count 3.58 M/uL (4.2-5.4); White Blood Count 4.78 K/uL (4.8-10.8)
[2019-08-17 08:02] LABS: BUN Creatinine Ratio 15.7 (10-20); Creatinine Clr Calc Pharmacy 56.1 ml/min; Est GFR (Non-African American) 44.9; Potassium 4.1 mmol/L (3.5-5.1)
[2019-08-17] MEDS: lisinopriL 10 MG TAB PO SCH (08:16)
[2019-08-17] MEDS: LORATADINE 10 MG TAB PO SCH (08:16)
[2019-08-17] MEDS: GABAPENTIN 300 MG CAP PO SCH ×2 (08:17→19:54)
[2019-08-17] MEDS: CHOLECALCIFEROL 1,000 UNITS 25 MCG TAB PO SCH (08:17)
[2019-08-17] MEDS: LEVOTHYROXINE SODIUM 75 MCG TABLET PO SCH (08:17)
[2019-08-17] MEDS: hydroCHLOROthiazide 25 MG TAB PO SCH (08:17)
[2019-08-17] MEDS: MULTIVITAMIN TAB PO SCH (08:18)
[2019-08-17] MEDS: BuPROPion SR 150 MG TABCR PO SCH (08:18)
[2019-08-17] MEDS: HYDROXYCHLOROQUINE SULFATE 200 MG TAB PO SCH (08:22)
[2019-08-17] MEDS ORDERED: CHOLECALCIFEROL 1,000 UNITS 25 MCG TAB PO SCH (09:00)
[2019-08-17] MEDS ORDERED: BuPROPion SR 150 MG TABCR PO SCH (09:00)
[2019-08-17] MEDS ORDERED: hydroCHLOROthiazide 25 MG TAB PO SCH (09:00)
[2019-08-17] MEDS ORDERED: GABAPENTIN 300 MG CAP PO SCH (09:00)
--- NOTE | 2019-08-17 17:19 | Gastrointestinal Consultation ---
Date of Consultation August 17, 2019 Assessment & Plan (1) Enteritis: (2) Abdominal pain: Symptoms have completely resolved at present I would attempt to advance her diet as she tolerates Recommend Pantoprazole 40 mg by mouth daily. Consider Repeat CT abd/pelvis in 1 month to ensure healing I will follow her clinical course and make further recommendations as needed. History of Present Illness Reason for Consultation: Enteritis, Abdominal pain Attending Physician: Lukas Franz History of Present Illness Kojo Green presented to the ER on 08/16/2019 with severe abdominal pain in the epigastric region. She states that she went to bed on 08/15/2019 in her normal state of health, but just as she was falling asleep she developed 10/10 sharp, stabbing epigastric abdominal pain. She did have some associated nausea and vomiting, but denied any diarrhea. She presented to the ER due to the pain, and while in the ER, was noted to be slightly anemia with an H/H of 11.8/36. She was noted to have an elevated CRP of 0.95, and due to a visitor from [place] and GI symptoms underwent Covid testing which returned normal this AM. She also underwent a CT abd/pelvis which showed moderate to severe enteritis. A CT angio was also obtained and showed patent vessels. She was subsequently admitted, kept NPO, and was placed on a Protonix gtt. At the time that I saw the patient this afternoon, she was "completely better." She denies any current abdominal pain, nausea, vomiting, diarrhea, hematemesis, melena, or hematochezia. She states that her symptoms have completely resolved. Of note, she did undergo an EGD in September 2018, and was found to have mild chronic gastritis on gastric biopsies, but no other findings. Allergies Allergy/AdvReac Type Severity Reaction Status Date / Time NSAIDS (Non-Steroidal Allergy Severe advised to Verified 08/16/19 14:03 Anti-Inflamma avoid d/t kidney disease adhesive Allergy Mild Rash Verified 08/16/19 14:03 latex Allergy Mild skin Verified 08/16/19 14:03 irritation nickel Allergy Mild redness Verified 08/16/19 14:03 and puffiness procaine Allergy Unknown shaking Verified 08/16/19 14:03 and increased peeing with novacaine aspirin AdvReac Mild Gastrointestinal Verified 08/16/19 14:03 Upset clarithromycin AdvReac Mild abdominal Verified 08/16/19 14:03 discomfort codeine AdvReac Unknown stomach Verified 08/16/19 14:03 burning, nervous Home Medications Home Medications Medication Instructions Recorded Confirmed Type bupropion HCl 150 mg PO QAM 08/08/18 08/16/19 History cholecalciferol (vitamin D3) 5,000 unit PO QAM 08/08/18 08/16/19 History [Vitamin D3] fluoxetine 60 mg PO HS 08/08/18 08/16/19 History gabapentin 300 mg PO QAM 08/08/18 08/16/19 History gabapentin 600 mg PO QPM 08/08/18 08/16/19 History hydrochlorothiazide 12.5 mg PO QAM 08/08/18 08/16/19 History hydroxychloroquine 400 mg PO QAM 08/08/18 08/16/19 History levothyroxine 75 mcg PO QAM 08/08/18 08/16/19 History lisinopril 10 mg PO QAM 08/08/18 08/16/19 History loratadine 10 mg PO QAM 08/08/18 08/16/19 History montelukast 10 mg PO QPM 08/08/18 08/16/19 History multivitamin 2 tab PO QAM 09/21/18 08/16/19 History omeprazole 20 mg tablet,delayed 20 mg PO QAM #30 tab 07/02/19 08/16/19 Rx release Patient History Medical History Asthma stable; no inhalers Depression Gastritis 09/2018 - started on PPI GERD (gastroesophageal reflux disease) occasional Hypertension Hypothyroidism Kidney disease, chronic, stage IV (GFR 15-29 ml/min) under surveillance; not on dialysis Morbid obesity Polymyalgia rheumatica on hydroxychloroquine Surgical History History of appendectomy History of cholecystectomy History of colonoscopy History of dental surgery dental implants History of endometrial ablation History of esophagogastroduodenoscopy (EGD) History of laparoscopy multiple--endometriosis History of nasal polypectomy x2 History of phacoemulsification of cataract of both eyes with intraocular lens implantation History of removal of cyst LEFT FOOT History of right hip replacement (Resolved) History of right oophorectomy History of tonsillectomy History of total left knee replacement (TKR) x2 History of total right knee replacement (TKR) History of wisdom tooth extraction Family History Other Family history not known due to adoption Social History Preferred Language: Citizen Of [place] Communication Ability: Effective Marine Operations Coordinator Required: No Beliefs That Will Affect Care: None marital status: Single marital status details: has boyfriend Current Living Situation: Significant Other current occupational status: 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 Other Information That Helps Us Care for You: No other: 2 adopted children Feels Safe at Home: Yes Safety Concerns: Feels Safe At This Time Smoking Status: Never smoker Second Hand Exposure: No ; Hx Alcohol Use: Yes Alcohol type: other Alcohol Intake Frequency: Holidays/Special Occasions Hx Substance Use: No Review of Systems Review of Systems: All systems reviewed & are unremarkable except as noted in HPI & below Physical Exam Constitutional: WD/WN, vitals as above Eyes: PERRL, conjunctivae normal, anicteric sclerae ENMT: external ear and nose normal, oropharynx normal Neck: trachea midline, no thyromegaly Respiratory: normal respiratory effort, lungs clear to auscultation Cardiovascular: RRR, no murmur, no edema Gastrointestinal (Abdomen): normal bowel sounds, soft, nontender, no hepatosplenomegaly Skin: no rashes, warm and dry Psychiatric: A+Ox3, euthymic affect Results & Data ([facility]) Vital Signs (Past 12 Hours) Vital Signs Temp Pulse Pulse Resp BP Pulse Ox 08/17/19 15:50 36.6 C 52 L 18 122/77 98 08/17/19 12:41 36.9 C 53 L 18 119/42 L 97 08/17/19 11:40 36.8 C 52 L 17 104/66 97 08/17/19 07:47 36.7 C 47 L 17 110/57 L 94 PG Care Time/CCT Total # of Minutes Spent Total Time Spent with Patient: Total time spent is greater than 50% in coordination of care (as documented) at patient's floor/unit and/or counseling patient: Coding Level of Care Code 82177 Inpt Consult Level 3 Diagnoses Enteritis K52.9 Abdominal pain R10.84 Abdominal location: generalized (1) Abdominal pain Abdominal location: generalized Qualified Code(s): R10.84 - Generalized abdominal pain
[2019-08-17] MEDS: ENOXAPARIN INJ 40 MG/0.4 ML SYR SQ SCH (19:53)
[2019-08-17] MEDS: MONTELUKAST SODIUM 10 MG TABLET PO SCH (19:54)
[2019-08-17] MEDS: FLUOXETINE HCL 20 MG CAP PO SCH (19:54)
[2019-08-17] MEDS: PANTOprazole 40 MG in SYRINGE 0 ML IV SCH (19:54)
--- NOTE | 2019-08-17 22:35 | Hospitalist Progress Note ---
Date of Service August 17, 2019 Assessment & Plan (1) Enteritis: The patient's abdominal pain is 2nd to the mod-severe enteritis as seen on CT. It appears this is likely viral. COVID testing was negative. will hold paracenthesis as pain has not worsened. Appreciate input from Dr. Oro. will resume diet and re-eval in AM. (2) Abdominal pain: see discussion above (3) Loss of taste: see discussion above (4) GERD (gastroesophageal reflux disease): cont PPI - give IV (5) Hypothyroidism: TSH 12/2018 was wnl can continue PO synthroid for now (6) Hypertension: BPs mod-severely elevated at time of presentation today. Cont home meds. Patient reports her BPs often rise in clinical situations. Pain may also be contributing. Adjust meds as needed. (7) Depression: Cont home meds (8) Polymyalgia rheumatica: Takes chronic plaquenil for such (9) Asthma: no symptoms at this time with normal O2 sats (10) Chronic kidney disease, stage 3a: Cr at baseline of 1.3-1.4, Improved to 1.27 today (11) DVT prophylaxis: lovenox 40mg daily place on observation status for now Admission and Anticipated Discharge Date Admission Date: August 16, 2019 Subjective Patient denies any fever, chills, nausea or vomiting. She states she is feeling somewhat better today. She has no new complaints at this time. Review of Systems Review of Systems: All systems reviewed & are unremarkable except as noted in HPI & below Physical Exam Physical Exam: Constitutional: + frail appearing; no acute distress and no altered mental status Eyes: + anicteric sclerae and PERRL ENMT: external ear and nose normal, oropharynx normal Neck: trachea midline, no thyromegaly Respiratory: normal respiratory effort, lungs clear to auscultation Cardiovascular: Rate/Rhythm: regular rate and regular rhythm Heart Sounds: no rmal S1 and normal S2; no murmur Vessels: posterior tibial pulses present and dorsalis pedis pulses present; no JVD Extremities: no edema Gastrointestinal (Abdomen): Inspection/Auscultation: + abdomen distended (mild) and normal bowel sounds Percussion/Palpation: + abdomen tender (minimal central abdomen ); no guarding, abdomen not rigid and no hepatosplenomegaly Musculoskeletal: no cyanosis or clubbing, extremities motor strength 5/5 Skin: no rashes, warm and dry Neurologic: deep tendon reflexes 2+ bilaterally and moves all extremities; no focal motor deficits Psychiatric: Orientation: alert and oriented x 3 Lymphatic: no cervical lymphadenopathy Results & Data Results & Data ([facility]) Vital Signs (Past 12 Hours) Vital Signs Temp Pulse Resp BP Pulse Ox 08/17/19 15:50 36.6 C 52 L 18 122/77 98 08/17/19 12:41 36.9 C 53 L 18 119/42 L 97 08/17/19 11:40 36.8 C 52 L 17 104/66 97 PG Care Time/CCT Total # of Minutes Spent Total Time Spent with Patient: Total time spent is greater than 50% in coordination of care (as documented) at patient's floor/unit and/or counseling patient: Coding Level of Care Code 83606 Subseq Obs Care Lvl 3 Diagnoses Enteritis K52.9 Abdominal pain R10.84 Abdominal location: generalized Loss of taste R43.2 GERD (gastroesophageal reflux disease) K21.9 Esophagitis presence: esophagitis presence not specified Hypothyroidism E03.9 Hypothyroidism type: acquired Hypertension I10 Hypertension type: essential hypertension Depression F32.9 Depression Type: unspecified Polymyalgia rheumatica M35.3 Asthma J45.20 Asthma complication type: uncomplicated Asthma persistence: intermittent Asthma severity: mild Chronic kidney disease, stage 3a N18.3 DVT prophylaxis Z29.9 Time Spent (min) 35 (1) Depression Depression Type: unspecified Qualified Code(s): F32.9 - Major depressive disorder, single episode, unspecified (2) Hypothyroidism Hypothyroidism type: acquired Qualified Code(s): E03.9 - Hypothyroidism, unspecified (3) GERD (gastroesophageal reflux disease) Esophagitis presence: esophagitis presence not specified Qualified Code(s): K21.9 - Gastro-esophageal reflux disease without esophagitis (4) Abdominal pain Abdominal location: generalized Qualified Code(s): R10.84 - Generalized abdominal pain (5) Hypertension Hypertension type: essential hypertension Qualified Code(s): I10 - Essential (primary) hypertension (6) Asthma Asthma complication type: uncomplicated Asthma persistence: intermittent Asthma severity: mild Qualified Code(s): J45.20 - Mild intermittent asthma, uncomplicated
[2019-08-18] MEDS: D5NSS + 20MEQ KCL 20 MEQ/1,000 ML BAG IV SCH ×2 (01:19→12:48)
[2019-08-18] MEDS ORDERED: CHOLECALCIFEROL 1,000 UNITS 25 MCG TAB PO SCH (08:00)
[2019-08-18] MEDS ORDERED: BuPROPion SR 150 MG TABCR PO SCH (08:00)
[2019-08-18] MEDS: GABAPENTIN 300 MG CAP PO SCH ×2 (08:35→21:18)
[2019-08-18] MEDS: hydroCHLOROthiazide 25 MG TAB PO SCH (08:35)
[2019-08-18] MEDS: lisinopriL 10 MG TAB PO SCH (08:36)
[2019-08-18] MEDS: CHOLECALCIFEROL 1,000 UNITS 25 MCG TAB PO SCH (08:36)
[2019-08-18] MEDS: LEVOTHYROXINE SODIUM 75 MCG TABLET PO SCH (08:36)
[2019-08-18] MEDS: MULTIVITAMIN TAB PO SCH (08:37)
[2019-08-18] MEDS: BuPROPion SR 150 MG TABCR PO SCH (08:37)
[2019-08-18] MEDS: LORATADINE 10 MG TAB PO SCH (08:37)
[2019-08-18 09:21] LABS: Hematocrit (blood only) 31.9 % (37-47); Hemoglobin 10.4 g/dL (12.0-16.0); Mean Corpuscular Hemoglobin 28.7 pg (25-34); Mean Corpuscular Hgb Conc 32.6 g/dL (32-36); Mean Corpuscular Volume 87.9 fL (80-100); Mean Platelet Volume 11.3 fL (7.4-10.4); Platelet Count 184 K/uL (130-400); RDW Coefficient of Variation 15.3 % (11.5-14.5); RDW Standard Deviation 50.1 fL (36.4-46.3); Red Blood Count 3.63 M/uL (4.2-5.4); White Blood Count 3.97 K/uL (4.8-10.8)
--- NOTE | 2019-08-18 09:48 | Gastroenterology Progress Note ---
Date of Service August 18, 2019 Assessment & Plan (1) Abdominal pain: (2) Enteritis: Continue current therapy Consider UGI with SBFT if symptoms persist Add Carafate 1 g PO AC and HS x 10 days Admission and Anticipated Discharge Date Admission Date: August 16, 2019 Subjective I had the pleasure of seeing Kojo Green today. She complained of RUQ abdominal pain, sharp and stabbing, 7/10 in intensity, which lasted a few minutes following her liquid breakfast. She states that she has not had a BM since her arrival, and denies any fevers, chills, nausea or vomiting. She denies any further complaints. Review of Systems Review of Systems: All systems reviewed & are unremarkable except as noted in HPI & below Physical Exam Constitutional: WD/WN, vitals as above Respiratory: normal respiratory effort, lungs clear to auscultation Cardiovascular: RRR, no murmur, no edema Gastrointestinal (Abdomen): normal bowel sounds, soft, nontender, no hepatosplenomegaly Skin: no rashes, warm and dry Psychiatric: A+Ox3, euthymic affect Results & Data Results & Data ([facility]) Vital Signs (Past 12 Hours) Vital Signs Temp Pulse Resp BP Pulse Ox 08/18/19 06:57 36.8 C 52 L 18 98/59 L 97 08/17/19 23:32 36.7 C 53 L 18 137/52 L 98 PG Care Time/CCT Total # of Minutes Spent Total Time Spent with Patient: Total time spent is greater than 50% in coordination of care (as documented) at patient's floor/unit and/or counseling patient: Coding Level of Care Code 41934 Subseq Hosp Care Lvl 3 Diagnoses Abdominal pain R10.84 Abdominal location: generalized Enteritis K52.9 (1) Abdominal pain Abdominal location: generalized Qualified Code(s): R10.84 - Generalized abdominal pain
[2019-08-18 10:00] LABS: BUN Creatinine Ratio 9.6 (10-20); Calcium 8.9 mg/dl (8.5-10.1); Creatinine Clr Calc Pharmacy 59.3 ml/min; Est GFR (African American) 55.7; Est GFR (Non-African American) 48.1; Potassium 4.1 mmol/L (3.5-5.1)
[2019-08-18] MEDS: HYDROXYCHLOROQUINE SULFATE 200 MG TAB PO SCH (11:16)
[2019-08-18] MEDS: PANTOprazole 40 MG TAB PO SCH (16:24)
[2019-08-18] MEDS: SUCRALFATE 1 GM TAB PO SCH ×3 (16:27→21:19)
[2019-08-18] MEDS: FLUOXETINE HCL 20 MG CAP PO SCH (21:18)
[2019-08-18] MEDS: MONTELUKAST SODIUM 10 MG TABLET PO SCH (21:18)
[2019-08-18] MEDS: ENOXAPARIN INJ 40 MG/0.4 ML SYR SQ SCH (21:19)
--- NOTE | 2019-08-18 23:08 | Hospitalist Progress Note ---
Date of Service August 18, 2019 Assessment & Plan (1) Enteritis: The patient's abdominal pain is 2nd to the mod-severe enteritis as seen on CT. It appears this is likely viral. COVID testing was negative. will hold paracenthesis as pain has not worsened. Appreciate input from Dr. Oro. will monitor for another 24 hours. may need UPPER gi WITH SMALL BOWEL FOLLOWTHROUGH if pain is present (2) Abdominal pain: see discussion above (3) Loss of taste: see discussion above (4) GERD (gastroesophageal reflux disease): cont PPI (5) Hypothyroidism: TSH 12/2018 was wnl can continue PO synthroid for now (6) Hypertension: BPs mod-severely elevated at time of presentation today. Cont home meds. Patient reports her BPs often rise in clinical situations. Pain may also be contributing. Adjust meds as needed. (7) Depression: Cont home meds (8) Polymyalgia rheumatica: Takes chronic plaquenil for such (9) Asthma: no symptoms at this time with normal O2 sats (10) Chronic kidney disease, stage 3a: Cr at baseline of 1.3-1.4, Improved to 1.20 today (11) DVT prophylaxis: lovenox 40mg daily place on observation status for now Admission and Anticipated Discharge Date Admission Date: August 18, 2019 Subjective Patient reports her pain has improved but it is still present. Review of Systems Review of Systems: All systems reviewed & are unremarkable except as noted in HPI & below Physical Exam Physical Exam: Constitutional: + frail appearing; no acute distress and no altered mental status Eyes: + anicteric sclerae and PERRL ENMT: external ear and nose normal, oropharynx normal Neck: trachea midline, no thyromegaly Respiratory: normal respiratory effort, lungs clear to auscultation Cardiovascular: Rate/Rhythm: regular rate and regular rhythm Heart Sounds: normal S1 and normal S2; no murmur Vessels: posterior tibial pulses present and dorsalis pedis pulses present; no JVD Extremities: no edema Gastrointestinal (Abdomen): Inspection/Auscultation: + abdomen distended (mild) and normal bowel sounds Percussion/Palpation: + abdomen tender (minimal central abdomen ); no guarding, abdomen not rigid and no hepatosplenomegaly Musculoskeletal: no cyanosis or clubbing, extremities motor strength 5/5 Skin: no rashes, warm and dry Neurologic: deep tendon reflexes 2+ bilaterally and moves all extremities; no focal motor deficits Psychiatric: Orientation: alert and oriented x 3 Lymphatic: no cervical lymphadenopathy Results & Data Results & Data ([facility]) Vital Signs (Past 12 Hours) Vital Signs Temp Pulse Resp BP Pulse Ox 08/18/19 15:23 36.5 C 48 L 16 144/76 H 98 PG Care Time/CCT Total # of Minutes Spent Total Time Spent with Patient: Total time spent is greater than 50% in coordination of care (as documented) at patient's floor/unit and/or counseling patient: Coding Level of Care Code 50915 Subseq Hosp Care Lvl 2 Diagnoses Enteritis K52.9 Abdominal pain R10.84 Abdominal location: generalized Loss of taste R43.2 GERD (gastroesophageal reflux disease) K21.9 Esophagitis presence: esophagitis presence not specified Hypothyroidism E03.9 Hypothyroidism type: acquired Hypertension I10 Hypertension type: essential hypertension Depression F32.9 Depression Type: unspecified Polymyalgia rheumatica M35.3 Asthma J45.20 Asthma complication type: uncomplicated Asthma persistence: intermittent Asthma severity: mild Chronic kidney disease, stage 3a N18.3 DVT prophylaxis Z29.9 Time Spent (min) 25 (1) Depression Depression Type: unspecified Qualified Code(s): F32.9 - Major depressive disorder, single episode, unspecified (2) Hypothyroidism Hypothyroidism type: acquired Qualified Code(s): E03.9 - Hypothyroidism, unspecified (3) GERD (gastroesophageal reflux disease) Esophagitis presence: esophagitis presence not specified Qualified Code(s): K21.9 - Gastro-esophageal reflux disease without esophagitis (4) Abdominal pain Abdominal location: generalized Qualified Code(s): R10.84 - Generalized abdominal pain (5) Hypertension Hypertension type: essential hypertension Qualified Code(s): I10 - Essential (primary) hypertension (6) Asthma Asthma complication type: uncomplicated Asthma persistence: intermittent Asthma severity: mild Qualified Code(s): J45.20 - Mild intermittent asthma, uncomplicated
[2019-08-19] MEDS: LORATADINE 10 MG TAB PO SCH (07:50)
[2019-08-19] MEDS: SUCRALFATE 1 GM TAB PO SCH ×4 (07:50→20:10)
[2019-08-19] MEDS: hydroCHLOROthiazide 25 MG TAB PO SCH (07:51)
[2019-08-19] MEDS: MULTIVITAMIN TAB PO SCH (07:52)
[2019-08-19] MEDS: CHOLECALCIFEROL 1,000 UNITS 25 MCG TAB PO SCH (07:53)
[2019-08-19] MEDS: LEVOTHYROXINE SODIUM 75 MCG TABLET PO SCH (07:53)
[2019-08-19] MEDS: lisinopriL 10 MG TAB PO SCH (07:53)
[2019-08-19] MEDS: HYDROXYCHLOROQUINE SULFATE 200 MG TAB PO SCH (07:53)
[2019-08-19] MEDS: GABAPENTIN 300 MG CAP PO SCH ×2 (07:53→20:10)
[2019-08-19] MEDS: BuPROPion SR 150 MG TABCR PO SCH (07:54)
[2019-08-19] MEDS: PANTOprazole 40 MG TAB PO SCH (07:55)
[2019-08-19] MEDS ORDERED: ACETAMINOPHEN 325 MG TAB PO PRN (08:11)
[2019-08-19] MEDS: ENOXAPARIN INJ 40 MG/0.4 ML SYR SQ SCH (20:07)
[2019-08-19] MEDS: MONTELUKAST SODIUM 10 MG TABLET PO SCH (20:10)
[2019-08-19] MEDS: FLUOXETINE HCL 20 MG CAP PO SCH (20:10)
--- NOTE | 2019-08-19 23:21 | Hospitalist Progress Note ---
Date of Service August 19, 2019 Assessment & Plan (1) Enteritis: The patient's abdominal pain is 2nd to the mod-severe enteritis as seen on CT. It appears this is likely viral. COVID testing was negative. will hold paracenthesis as pain has subsided. Appreciate input from Dr. Oro. As pain has subsided, will hold off UGI with SBFT. will followup with the cultures, if symptoms worsened. will follow cutlures. Main complaint today is her diarrhea. (2) Abdominal pain: see discussion above (3) Loss of taste: see discussion above (4) GERD (gastroesophageal reflux disease): cont PPI (5) Hypothyroidism: TSH 12/2018 was wnl can continue PO synthroid for now (6) Hypertension: BPs mod-severely elevated at time of presentation today. Cont home meds. Patient reports her BPs often rise in clinical situations. Pain may also be contributing. Adjust meds as needed. (7) Depression: Cont home meds (8) Polymyalgia rheumatica: Takes chronic plaquenil for such (9) Asthma: no symptoms at this time with normal O2 sats (10) Chronic kidney disease, stage 3a: Cr at baseline of 1.3-1.4, Improved to 1.20 today (11) DVT prophylaxis: lovenox 40mg daily place on observation status for now Admission and Anticipated Discharge Date Admission Date: August 18, 2019 Subjective Patient reports she continues to have nausea and vomiting. Review of Systems Review of Systems: All systems reviewed & are unremarkable except as noted in HPI & below Physical Exam Physical Exam: Constitutional: + frail appearing; no acute distress and no altered mental status Eyes: + anicteric sclerae and PERRL ENMT: external ear and nose normal, oropharynx normal Neck: trachea midline, no thyromegaly Respiratory: normal respiratory effort, lungs clear to auscultation Cardiovascular: Rate/Rhythm: regular rate and regular rhythm Heart Sounds: normal S1 and normal S2; no murmur Vessels: posterior tibial pulses present and dorsalis pedis pulses present; no JVD Extremities: no edema Gastrointestinal (Abdomen): Inspection/Auscultation: + abdomen distended (mild) and normal bowel sounds Percussion/Palpation: + abdomen tender (minimal central abdomen ); no guarding, abdomen not rigid and no hepatosplenomegaly Musculoskeletal: no cyanosis or clubbing, extremities motor strength 5/5 Skin: no rashes, warm and dry Neurologic: deep tendon reflexes 2+ bilaterally and moves all extremities; no focal motor deficits Psychiatric: Orientation: alert and oriented x 3 Lymphatic: no cervical lymphadenopathy Results & Data Results & Data ([facility]) Vital Signs (Past 12 Hours) Vital Signs Temp Pulse Resp BP Pulse Ox 08/19/19 15:42 36.6 C 50 L 18 122/72 99 PG Care Time/CCT Total # of Minutes Spent Total Time Spent with Patient: Total time spent is greater than 50% in coordination of care (as documented) at patient's floor/unit and/or counseling patient: Coding Level of Care Code 88291 Subseq Hosp Care Lvl 3 Diagnoses Enteritis K52.9 Abdominal pain R10.84 Abdominal location: generalized Loss of taste R43.2 GERD (gastroesophageal reflux disease) K21.9 Esophagitis presence: esophagitis presence not specified Hypothyroidism E03.9 Hypothyroidism type: acquired Hypertension I10 Hypertension type: essential hypertension Depression F32.9 Depression Type: unspecified Polymyalgia rheumatica M35.3 Asthma J45.20 Asthma complication type: uncomplicated Asthma persistence: intermittent Asthma severity: mild Chronic kidney disease, stage 3a N18.3 DVT prophylaxis Z29.9 Time Spent (min) 35 (1) Depression Depression Type: unspecified Qualified Code(s): F32.9 - Major depressive disorder, single episode, unspecified (2) Hypothyroidism Hypothyroidism type: acquired Qualified Code(s): E03.9 - Hypothyroidism, unspecified (3) GERD (gastroesophageal reflux disease) Esophagitis presence: esophagitis presence not specified Qualified Code(s): K21.9 - Gastro-esophageal reflux disease without esophagitis (4) Abdominal pain Abdominal location: generalized Qualified Code(s): R10.84 - Generalized abdominal pain (5) Hypertension Hypertension type: essential hypertension Qualified Code(s): I10 - Essential (primary) hypertension (6) Asthma Asthma complication type: uncomplicated Asthma persistence: intermittent Asthma severity: mild Qualified Code(s): J45.20 - Mild intermittent asthma, uncomplicated
[2019-08-20] MEDS: SUCRALFATE 1 GM TAB PO SCH ×4 (06:58→20:14)
[2019-08-20] MEDS: PANTOprazole 40 MG TAB PO SCH (09:06)
[2019-08-20] MEDS: hydroCHLOROthiazide 25 MG TAB PO SCH (09:07)
[2019-08-20] MEDS: BuPROPion SR 150 MG TABCR PO SCH (09:08)
[2019-08-20] MEDS: LEVOTHYROXINE SODIUM 75 MCG TABLET PO SCH (09:08)
[2019-08-20] MEDS: lisinopriL 10 MG TAB PO SCH (09:08)
[2019-08-20] MEDS: CHOLECALCIFEROL 1,000 UNITS 25 MCG TAB PO SCH (09:09)
[2019-08-20] MEDS: MULTIVITAMIN TAB PO SCH (09:09)
[2019-08-20] MEDS: GABAPENTIN 300 MG CAP PO SCH ×2 (09:11→20:12)
[2019-08-20] MEDS: LORATADINE 10 MG TAB PO SCH (09:11)
[2019-08-20] MEDS: HYDROXYCHLOROQUINE SULFATE 200 MG TAB PO SCH (09:24)
--- NOTE | 2019-08-20 16:13 | Gastroenterology Progress Note ---
Date of Service August 20, 2019 Assessment & Plan (1) Enteritis: (2) Abdominal pain: Doing much better today. Continue current therapy. If pain free, and no further diarrhea can followup with us as outpatient in 1-2 weeks, as she has been tolerating PO intake. Will need repeat imaging study SBFT vs. CT Abd/pelvis to evaluate healing in 4-6 weeks. She is to contact our office with worsening symptoms. Admission and Anticipated Discharge Date Admission Date: August 18, 2019 Subjective I had the pleasure of seeing Kojo Green at her bedside today. She was having significant diarrhea yesterday, however, she states that she is feeling much improved today. She denies any abdominal pain, fevers, chills, nausea, vomiting or diarrhea. She had negative stool studies, including C-diff, and has tolerated a heart healthy diet. She has no further complaints. Review of Systems Review of Systems: All systems reviewed & are unremarkable except as noted in HPI & below Physical Exam Constitutional: WD/WN, vitals as above Eyes: PERRL, conjunctivae normal, anicteric sclerae ENMT: external ear and nose normal, oropharynx normal Neck: trachea midline, no thyromegaly Respiratory: normal respiratory effort; no respiratory distress and no labored breathing Gastrointestinal (Abdomen): Inspection/Auscultation: abdomen normal to inspection Percussion/Palpation: abdomen soft; abdomen nontender Results & Data Results & Data ([facility]) Vital Signs (Past 12 Hours) Vital Signs Temp Pulse Resp BP Pulse Ox 08/20/19 15:27 36.9 C 54 L 18 138/79 97 08/20/19 07:17 36.4 C L 50 L 17 118/68 96 PG Care Time/CCT Total # of Minutes Spent Total Time Spent with Patient: Total time spent is greater than 50% in coordination of care (as documented) at patient's floor/unit and/or counseling patient: Coding Level of Care Code 98898 Subseq Hosp Care Lvl 2 Diagnoses Enteritis K52.9 Abdominal pain R10.84 Abdominal location: generalized (1) Abdominal pain Abdominal location: generalized Qualified Code(s): R10.84 - Generalized abdominal pain
[2019-08-20] MEDS: ENOXAPARIN INJ 40 MG/0.4 ML SYR SQ SCH (20:11)
[2019-08-20] MEDS: FLUOXETINE HCL 20 MG CAP PO SCH (20:14)
[2019-08-20] MEDS: MONTELUKAST SODIUM 10 MG TABLET PO SCH (20:14)
--- NOTE | 2019-08-20 23:48 | Hospitalist Progress Note ---
Date of Service August 20, 2019 Assessment & Plan (1) Enteritis: The patient's abdominal pain is 2nd to the mod-severe enteritis as seen on CT. It appears this is likely viral. COVID testing was negative. will hold paracenthesis as pain has subsided. Appreciate input from Dr. Oro. As pain has subsided, will hold off UGI with SBFT. If pain free, and no further diarrhea can be discharged on 08/21/19. Patient will need followup with GI as outpatient in 1-2 weeks, as she has been tolerating PO intake. Will need repeat imaging study SBFT vs. CT Abd/pelvis to evaluate healing in 4-6 weeks. (2) Abdominal pain: see discussion above (3) Loss of taste: see discussion above (4) GERD (gastroesophageal reflux disease): cont PPI (5) Hypothyroidism: TSH 12/2018 was wnl can continue PO synthroid for now (6) Hypertension: BPs mod-severely elevated at time of presentation today. Cont home meds. Patient reports her BPs often rise in clinical situations. Pain may also be contributing. Adjust meds as needed. (7) Depression: Cont home meds (8) Polymyalgia rheumatica: Takes chronic plaquenil for such (9) Asthma: no symptoms at this time with normal O2 sats (10) Chronic kidney disease, stage 3a: Cr at baseline of 1.3-1.4, Improved to 1.20 (11) DVT prophylaxis: lovenox 40mg daily Admission and Anticipated Discharge Date Admission Date: August 18, 2019 Subjective Patient currently is pain free and is having no diarrhea today. Yesterday she was having explosive diarrhea after each meal. Review of Systems Review of Systems: All systems reviewed & are unremarkable except as noted in HPI & below Physical Exam Physical Exam: Constitutional: + frail appearing; no acute distress and no altered mental status Eyes: + anicteric sclerae and PERRL ENMT: external ear and nose normal, oropharynx normal Neck: trachea midline, no thyromegaly Respiratory: normal respiratory effort, lungs clear to auscultation Cardiovascular: Rate/Rhythm: regular rate and regular rhythm Heart Sounds: n ormal S1 and normal S2; no murmur Vessels: posterior tibial pulses present and dorsalis pedis pulses present; no JVD Extremities: no edema Gastrointestinal (Abdomen): Inspection/Auscultation: + abdomen distended (mild) and normal bowel sounds Percussion/Palpation: nontrender; no guarding, abdomen not rigid and no hepatosplenomegaly Musculoskeletal: no cyanosis or clubbing, extremities motor strength 5/5 Skin: no rashes, warm and dry Neurologic: deep tendon reflexes 2+ bilaterally and moves all extremities; no focal motor deficits Psychiatric: Orientation: alert and oriented x 3 Lymphatic: no cervical lymphadenopathy Results & Data Results & Data ([facility]) Vital Signs (Past 12 Hours) Vital Signs Temp Pulse Resp BP Pulse Ox 08/20/19 22:59 36.7 C 52 L 20 127/74 95 08/20/19 15:27 36.9 C 54 L 18 138/79 97 PG Care Time/CCT Total # of Minutes Spent Total Time Spent with Patient: Total time spent is greater than 50% in coordination of care (as documented) at patient's floor/unit and/or counseling patient: Coding Level of Care Code 70446 Subseq Hosp Care Lvl 2 Diagnoses Enteritis K52.9 Abdominal pain R10.84 Abdominal location: generalized Loss of taste R43.2 GERD (gastroesophageal reflux disease) K21.9 Esophagitis presence: esophagitis presence not specified Hypothyroidism E03.9 Hypothyroidism type: acquired Hypertension I10 Hypertension type: essential hypertension Depression F32.9 Depression Type: unspecified Polymyalgia rheumatica M35.3 Asthma J45.20 Asthma complication type: uncomplicated Asthma persistence: intermittent Asthma severity: mild Chronic kidney disease, stage 3a N18.3 DVT prophylaxis Z29.9 Time Spent (min) 25 (1) Depression Depression Type: unspecified Qualified Code(s): F32.9 - Major depressive disorder, single episode, unspecified (2) Hypothyroidism Hypothyroidism type: acquired Qualified Code(s): E03.9 - Hypothyroidism, unspecified (3) GERD (gastroesophageal reflux disease) Esophagitis presence: esophagitis presence not specified Qualified Code(s): K21.9 - Gastro-esophageal reflux disease without esophagitis (4) Abdominal pain Abdominal location: generalized Qualified Code(s): R10.84 - Generalized abdominal pain (5) Hypertension Hypertension type: essential hypertension Qualified Code(s): I10 - Essential (primary) hypertension (6) Asthma Asthma complication type: uncomplicated Asthma persistence: intermittent Asthma severity: mild Qualified Code(s): J45.20 - Mild intermittent asthma, uncomplicated
[2019-08-21] MEDS: CHOLECALCIFEROL 1,000 UNITS 25 MCG TAB PO SCH (07:51)
[2019-08-21] MEDS: lisinopriL 10 MG TAB PO SCH (07:51)
[2019-08-21] MEDS: BuPROPion SR 150 MG TABCR PO SCH (07:51)
[2019-08-21] MEDS: LEVOTHYROXINE SODIUM 75 MCG TABLET PO SCH (07:52)
[2019-08-21] MEDS: GABAPENTIN 300 MG CAP PO SCH (07:52)
[2019-08-21] MEDS: LORATADINE 10 MG TAB PO SCH (07:52)
[2019-08-21] MEDS: hydroCHLOROthiazide 25 MG TAB PO SCH (07:52)
[2019-08-21] MEDS: MULTIVITAMIN TAB PO SCH (07:52)
[2019-08-21] MEDS: SUCRALFATE 1 GM TAB PO SCH (07:52)
[2019-08-21] MEDS: HYDROXYCHLOROQUINE SULFATE 200 MG TAB PO SCH (07:56)
[2019-08-21] MEDS ORDERED: PANTOprazole 40 MG TAB PO SCH (08:00)
--- NOTE | 2019-08-21 09:22 | Discharge Summary ---
Date of Service date of admission - August 16, 2019 date of discharge - August 21, 2019 Admission HPI Per Admitting Provider 63yo female with history of PMR on plaquenil, hypothyroidism, and HTN who presents with the acute onset of abdominal pain starting about midnight last pm. Feels quite bloated, and pain was constant all night preventing her from sleeping. She felt like she had to have a bowel movement multiple times through the night but when she attempted to do so nothing came out. No nausea. Had subjective fever in the middle of the night and upon awakening this am felt cold. She continues to feel cold at this time. No recent travel or obvious sick contacts. Her adopted daughter, however, started to stay with her about 2 weeks ago after the daughter moved from [facility]. Last pm while eating dinner - which was hours before the abdominal pain started - she began to have a slight change in taste. The food "simply didn't taste right." She questioned her boyfriend and daughter who stated the food was fine. No change in smell. She mentions that for the last 1-2 weeks her appetite has been "off" and she has been skipping 1-2 meals/day because of not feeling right. Denies any cough, dyspnea, or chest pain. No myalgias. She did have a "funny feeling" in her right hand overnight but not the left hand. Principal Diagnosis small bowel enteritis - presumed viral in etiology Discharge Exam Constitutional well developed, well nourished and + obese; no acute distress and no altered men rosalia status ENMT external ear and nose normal, oropharynx normal Respiratory normal respiratory effort, lungs clear to auscultation Cardiovascular Rate/Rhythm: regular rate and regular rhythm Heart Sounds: normal S1 and normal S2; no murmur Vessels: posterior tibial pulses present and dorsalis pedis pulses present; no JVD Extremities: no edema Gastrointestinal (Abdomen) normal bowel sounds, soft, nontender, no hepatosplenomegaly Psychiatric A+Ox3, euthymic affect Discharge Data Allergies Allergy/AdvReac Type Severity Reaction Status Date / Time NSAIDS (Non-Steroidal Allergy Severe advised to Verified 08/16/19 14:03 Anti-Inflamma avoid d/t kidney disease adhesive Allergy Mild Rash Verified 08/16/19 14:03 latex Allergy Mild skin Verified 08/16/19 14:03 irritation nickel Allergy Mild redness Verified 08/16/19 14:03 and puffiness procaine Allergy Unknown shaking Verified 08/16/19 14:03 and increased peeing with novacaine aspirin AdvReac Mild Gastrointestinal Verified 08/16/19 14:03 Upset clarithromycin AdvReac Mild abdominal Verified 08/16/19 14:03 discomfort codeine AdvReac Unknown stomach Verified 08/16/19 14:03 burning, nervous Consultations Gastroenterology - Ibrahima Case DO Ordered Studies 08/16/19 13:02 CT abd pelvis wo con - IMPRESSION: 1. Significant wall thickening of small bowel loops in the central abdomen and superior pelvis with extensive associated infiltrative changes in the small bowel mesentery and interloop fluid. Findings are concerning for moderate to severe enteritis. Ischemic etiology is not excluded though the findings could be infectious or inflammatory. Mesenteric Doppler ultrasound may be useful if the patient cannot receive contrast and ischemia is considered. 2. Small volume ascites. 08/16/19 14:04 CT abd pelvis IV con only - IMPRESSION: 1. Preserved enhancement of the abnormal loops of small bowel with patent central arterial vasculature and patent superior mesenteric vein. Findings argue against an ischemic etiology. Infectious or inflammatory enteritis favored. 2. Abdominopelvic ascites is presumably reactive. Hospital Course (1) Enteritis: The patient's abdominal pain was 2nd to the mod-severe enteritis seen on CT of the abd/pelvis. The abdominal vasculature was all patent which would argue against ischemia as the etiology of the enteritis. IBD was unlikely given the acuity of her pain/symptoms. A viral etiology for her enteritis was most likely. COVID-19 PCR was negative. Bacterial stool culture was negative. C diff testing was negative. She was seen in consult by [facility] gastroenterology, Dr Oro, who recommended conservative treatment. She was given IV fluids and bowel rest initially. Early attempts at feeding were complicated by copious diarrhea which led to difficulties in her dietary advancement. Ultimately her abdominal pain and diarrhea resolved, however, and she was able to resume a normal diet. Prior to discharge she was tolerating a regular diet without any GI symptoms. Dr Oro recommended outpatient GI f/u in 1-2 weeks post-discharge, and possibly repeat CT imaging in 4-6 weeks to ensure resolution of the CT findings from this admission. (2) Abdominal pain: 2nd to small bowel enteritis - resolved (3) Loss of taste: COVID-19 testing was negative (4) GERD (gastroesophageal reflux disease): cont PPI (5) Hypothyroidism: TSH 12/2018 was wnl continue synthroid (6) Hypertension: Early on in her stay her BPs were elevated, likely due in part to her abdominal pain. Her BPs normalized without intervention later in her hospitalization. She remains off of any anti-hypertensives at this time. (7) Depression: Cont home meds (8) Polymyalgia rheumatica: Cont chronic plaquenil (9) Asthma: no symptoms or exacerbation during the stay (10) Chronic kidney disease, stage 3a: Cr was at baseline of 1.2-1.4 during the hospitalization (11) Morbid obesity with BMI of 40.0-44.9, adult: BMI 40.5 Total Time Total Time Spent Total Time Spent (In Minutes): 35 Total Time Includes: Examination of the Patient, Discharge Planning and Medication Reconciliation Discharge Plan Discharge Items Patient Disposition: Home - Self-Care Reason For Visit: ABDOMINAL PAIN Discharge Diagnosis: small intestinal enteritis -- infection of the small bowel, likely due to a virus -- improved Activity: As commented below Activity Comment: gradually increase activities over the next 2-3 days Non-emergency contact: Primary Care Provider and Care Transitions Manager Call non-emergency contact if: you have any medication questions, your symptoms worsen, your pain is not controlled, your pain is worsening, your pain is unusual for you, your pain is concerning for you and you have a fever Follow-up/Referrals: Ibrahima Oro DO [Physician] - (see Dr Oro from gastroenterology in 1-2 weeks ) Kaylee Romano MD [Primary Care Provider] - (please perform a telephone follow-up with your family doctor in 1-2 weeks ) Diet: Low Fiber Addtl Attending Provider Instructions: You were admitted for severe abdominal pain. Your CAT scan of the abdomen showed inflammation of the small intestine/bowel - also known as "enteritis." Enteritis is usually caused by a viral infection of the bowels. Your COVID-19 (coronavirus) testing was negative. Your c diff stool test was negative. Your bacterial stool culture is thus far negative (this checks for salmonella, e. coli, etc). Over time your abdominal pain and diarrhea resolved with supportive measures. For the next 3-5 days please follow a low-fiber diet. High fiber foods include but are not limited to beans, certain cereals, oatmeal, excessive amounts of fruits / veggies, etc. Dr Oro from GI would like to see you in 1-2 weeks in the GI (gastroenterology) clinic to make sure you are still doing well. There have been no changes in your chronic medications. Return to [facility] if -- * you have fevers over 100.5 degrees * you have recurrent abdominal pain * you have recurrent diarrhea * you have vomiting * you have chills, muscle aches, joint aches, loss of taste or smell, or extreme fatigue * any other concerns General COVID-19 information - Coronavirus disease 2019 (COVID-19) is a virus that causes a respiratory illness. It is caused by a coronavirus called 2019 novel coronavirus (2019- nCoV). There are many types of coronavirus. Coronaviruses are a very common cause of bronchitis. They may sometimes cause lung infection(pneumonia). Symptoms can range from mild to severe respiratory illness. These viruses are also foundin some animals. COVID-19 was first found in people in [facility], in late 2019. In 2020, several cases of COVID-19 have been confirmed in the [place] Public health officials are working to find the source. How the virus spreads is not yet fully known. It may be spread through droplets of fluid that a person coughs or sneezes into the air. It may be spread if you touch a surface with virus on it, such as a handle or object, and then touch your mouth. What are the symptoms of COVID-19? Some people have no symptoms or mild symptoms. Symptoms may appear 2 to 14 days after contact with the virus. Symptoms can include: Fever Coughing Trouble breathing What are possible complications from COVID-19? In many cases, this virus can cause infection (pneumonia) in both lungs. In some cases, this can cause . How is COVID-19 diagnosed? Your healthcare provider will ask about your symptoms. He or she will also ask about your recent travel and contact with sick people. Testing for the virus is only done through the CDC. If yourhealthcare provider thinks you may have COVID- 19, he or she will work with your local health department and the CDC on testing. Follow all instructions from your healthcare provider. COVID-19 is diagnosed by: Nasal and throat swab. A cotton-tipped swab is wiped inside your nose or throa t. This is done to check for viruses in your nasal mucus. Sputum culture. A small sample of mucus coughed from your lungs (sputum) is collected if you have a cough. It is checked for the virus. How is COVID-19 treated? There is currently no medicine to treat the virus. Treatment is done to help your body while it fights the virus. This is known as supportive care. Supportive care may include: Pain medicine. These include acetaminophen and ibuprofen. They are used to help ease pain and reduce fever. Bed rest. This helps your body fight the illness. For severe illness, you may need to stay in the hospital. Care during severe illness may include: IV (intravenous) fluids.These are given through a vein to help keep your body hydrated. Oxygen. Supplemental oxygen or ventilation with a breathing machine (ventilator) may be given. This is done to keep enough oxygen in your body. Are you at risk for COVID-19? If youve been to a place where people have been sick with this virus, you are at risk for infection. You are at risk if you: Recently traveled to an affected area Had contact with a sick person who recently traveled to this area Had contact with a person who was diagnosed with COVID-19 How can COVID-19 be prevented? There is no vaccine yet. The best prevention is to not have contact with the virus. The CDC advises that people should not travel to areas where there are COVID-19 outbreaks right now for any reason that is not urgent. To help prevent spreading the infection, wash your hands often, or use an alcohol-basedhand metal furniture polisher. If you are in an area with COVID-19: Wash your hands often. Or use an alcohol-based hand metal furniture polisher often. Only touch your eyes, nose, or mouth with clean hands. Dont have contact with people who are sick. Follow local instructions about being in public. For example, you may be told to not use public transport for a period of time. Stay away from markets that have live or animals. Wash your hands after touching any animals. Don't touch animals that may be sick. Dont share eating or drinking tools with sick people. Dont kiss someone who is sick. Clean surfaces often with disinfectant. If you were in an area with COVID-19 in the last 14 days: Call your healthcare provider. He or she can talk with local health staff to see what action may be needed. Follow all instructions from your provider. Take your temperature every morning and evening for at least 14 days. This is to check for fever. Keep a record of the readings. Keep watch for symptoms of the virus. Tell your provider right away if you have symptoms. If you were in an area with COVID-19 and have a fever or other symptoms: Dont panic. Keep in mind that other illnesses can cause similar symptoms. Stay away from work, school, and public places. Limit physical contact with family members. Don't kiss anyone or share eating or drinking utensils. Clean surfaces you touch with disinfectant. This is to help prevent the virus from spreading. Call your healthcare provider. Explain that you have been exposed to COVID-19 and have symptoms. Do this before going to any hospital. Wait for instructions. Keep in mind that healthcare staff may wear protective equipment such as masks, gowns, gloves, and eye protection. You may be put in a separate room. This is to prevent the possible virus from spreading. Tell the healthcare staff about recent travel. This includes local travel on public transport. Staff may need to find other people you have been in contact with. Follow all instructions the healthcare staff give you. If you have been diagnosed with COVID-19 Follow all instructions from your healthcare provider. Dont leave your home, except to get medical care. Call your healthcare providers office before going. They can prepare and give you instructions. This will help prevent the virus from spreading. Dont go to work, school, or public areas. Dont use public transport or taxis. Stay away from other people in your home. Have them wear face masks around you. Dont share household items or food. Wear a face mask if you can. This includes at home or in a medical facility. Cover your face with a tissue when you cough or sneeze. Throw the tissue away. Wash your hands. Wash your hands often. Caregivers should: Follow all instructions from healthcare staff. Wear a face mask and protective clothing as advised. Wash hands often. Keep track of the sick persons symptoms. Clean surfaces, fabrics, and laundry thoroughly. Keep other people away from the sick person. When to call your healthcare provider Call your healthcare provider: If youve recently traveled and have symptoms If you have been diagnosed with COVID-19 and your symptoms are worse To learn more To find out more about COVID-19, visit the CDC website at www.cdc.gov/coronavirus/2019-ncov/index.html. [employer]. [address] [place] [address]. All rights reserved. This information is not intended as a substitute for professional medical care. Always follow your healthcare professional's instructions. This information has been adapted from [employer] Pending Studies at Discharge: Yes Studies:: final stool culture Stand-Alone Forms: My [facility] Unified Inbox, Smoking Cessation Medications and DC Order Prescriptions: Continued omeprazole 20 mg tablet,delayed release (DR/EC) 20 mg PO QAM Qty: 30 RF: 5 levothyroxine 75 mcg tablet 75 mcg PO QAM RF: 0 lisinopril 10 mg tablet 10 mg PO QAM RF: 0 hydrochlorothiazide 12.5 mg capsule 12.5 mg PO QAM RF: 0 gabapentin 300 mg capsule 600 mg PO QPM RF: 0 montelukast 10 mg tablet 10 mg PO QPM RF: 0 hydroxychloroquine 200 mg tablet 400 mg PO QAM RF: 0 fluoxetine 20 mg capsule 60 mg PO HS RF: 0 bupropion HCl 150 mg tablet sustained-release 12 hr 150 mg PO QAM RF: 0 gabapentin 300 mg Capsule 300 mg PO QAM RF: 0 loratadine 10 mg Tablet 10 mg PO QAM RF: 0 cholecalciferol (vitamin D3) [Vitamin D3] 5,000 unit Tablet 5,000 unit PO QAM RF: 0 multivitamin Tablet 2 tab PO QAM RF: 0 Discharge Orders: Discharge Order (Routine); Ordered 08/21/19 Ordered By: Matheus Zuniga Admission Data Admit Date/Time: 08/18/19 18:47 Attending Provider: Matheus Zuniga Admit Provider: Matheus Zuniga Primary Care Provider: Kaylee Romano Other Providers: Matheus Zuniga ; Ibrahima Oro Other Interventions: Discharge Summary Assessment (RN) Last Done: 08/21/19 09:55 DC Date/Time DO NOT enter until pt leaves facility: 08/21/19 11:15 Coding Level of Care Code D/C Day Management >30 mins Diagnoses Enteritis K52.9 Abdominal pain R10.84 Abdominal location: generalized Loss of taste R43.2 GERD (gastroesophageal reflux disease) K21.9 Esophagitis presence: esophagitis presence not specified Hypothyroidism E03.9 Hypothyroidism type: acquired Hypertension I10 Hypertension type: essential hypertension Depression F32.9 Depression Type: unspecified Polymyalgia rheumatica M35.3 Asthma J45.20 Asthma complication type: uncomplicated Asthma persistence: intermittent Asthma severity: mild Chronic kidney disease, stage 3a N18.3 Morbid obesity with BMI of 40.0-44.9, adult E66.01; Z68.41
== END 2019-08-21 11:15 | disposition home or self-care (01) ==
LOC: 2S 12:42 → ED 12:42 → SUATTDRO 16:40 → 2S 18:31 → 2N 08-17 12:22 → SUATTDRO 08-18 18:47

== ENCOUNTER 2019-09-29 05:35 | Observation (INO) ==
--- NOTE | 2019-09-23 14:59 | Anesthesiology Consultation ---
Date of Service September 23, 2019 Assessment & Plan (1) Encounter for pre-operative examination: Per nursing phone assessment on 09/22: Travel screen- Traveled to [facility] for grocery shopping. Wears mask + social distancing in public. No known COVID-19 positive contacts. COVID testing 08/16/19 was negative (done during [facility] admission for small bowel enteritis/presumed viral etiology. Patient scheduled for preop protocol COVID-19 testing 09/22 or 09/23 at [facility]. Awaiting results. Chart Review Chart Review: Acceptable Risk for Surgery (pending COVID testing) and Patient NOT seen in Pre Admission Testing History Surgery Operation Date: 09/29/19 08:05 Proposed Procedures p Left Thyroid Lobectomy, Possible Total Thyroidectomy - Dilan Rossi DO, FACS Height/Weight Height: 5 ft 4 in Weight: 106.141 kg Allergies Allergy/AdvReac Type Severity Reaction Status Date / Time NSAIDS (Non-Steroidal Allergy Severe advised to Verified 09/23/19 13:49 Anti-Inflamma avoid d/t kidney disease adhesive Allergy Mild Rash Verified 09/23/19 13:49 latex Allergy Mild skin Verified 09/23/19 13:49 irritation nickel Allergy Mild redness Verified 09/23/19 13:49 and puffiness procaine Allergy Unknown shaking Verified 09/23/19 13:49 and increased peeing with novacaine aspirin AdvReac Mild Gastrointestinal Verified 09/23/19 13:49 Upset clarithromycin AdvReac Mild abdominal Verified 09/23/19 13:49 discomfort codeine AdvReac Unknown stomach Verified 09/23/19 13:49 burning, nervous Additional Notes: Surgeon aware of procaine reaction per 09/02/19 surgeon's office visit note.* OR made aware of nickel/latex allergy. Medications Home Medications Medication Instructions Recorded Confirmed Last Taken bupropion HCl 150 mg PO QAM 08/08/18 09/23/19 08/16/19 cholecalciferol (vitamin D3) 5,000 unit PO QAM 08/08/18 09/23/19 08/16/19 [Vitamin D3] fluoxetine 60 mg PO HS 08/08/18 09/23/19 08/15/19 gabapentin 300 mg PO QAM 08/08/18 09/23/19 08/16/19 gabapentin 600 mg PO QPM 08/08/18 09/23/1908/14/20 hydrochlorothiazide 12.5 mg PO QAM 08/08/18 09/23/19 08/16/19 hydroxychloroquine 400 mg PO QAM 08/08/18 09/23/19 08/16/19 levothyroxine 75 mcg PO QAM 08/08/18 09/23/19 08/16/19 lisinopril 10 mg PO QAM 08/08/18 09/23/19 08/16/19 loratadine 10 mg PO QAM 08/08/18 09/23/19 08/16/19 montelukast 10 mg PO QPM 08/08/18 09/23/19 08/15/19 multivitamin 2 tab PO QAM 09/21/18 09/23/19 08/16/19 omeprazole 20 mg tablet,delayed 20 mg PO BID #30 tab 09/21/19 09/23/19 Unknown release Past Medical History Medical History (Updated 09/23/19 @ 14:55 by Yuliana Aguilar) Anemia chronic Asthma stable; no inhalers Depression Gastritis 09/2018 - started on PPI GERD (gastroesophageal reflux disease) occasional Hypertension Hypothyroidism Kidney disease, chronic, stage IV (GFR 15-29 ml/min) under surveillance; not on dialysis/GFR 39.5 on 08/2019 labs Morbid obesity Papillary thyroid carcinoma Polymyalgia rheumatica on hydroxychloroquine Past Family History Family History Mother Breast cancer Other Family history not known due to adoption Past Surgical History Surgical History (Updated 09/23/19 @ 14:53 by Yuliana Aguilar) History of appendectomy History of cholecystectomy History of colonoscopy History of dental surgery dental implants History of endometrial ablation History of endoscopic sinus surgery x2 History of esophagogastroduodenoscopy (EGD) History of laparoscopy multiple--endometriosis History of nasal polypectomy x2 History of phacoemulsification of cataract of both eyes with intraocular lens implantation History of removal of cyst LEFT FOOT History of right hip replacement (Resolved) 12/19/18: SAB x1 attempt (patient had stated had had bupivacaine in the past without issue) at [facility] History of right oophorectomy History of tonsillectomy History of total left knee replacement (TKR) x2 History of total right knee replacement (TKR) History of wisdom tooth extraction Social History Smoking Status: Former smoker tobacco type: cigarettes Do You Dip or Chew Tobacco: No Smoking End Date: 1974 Hx Alcohol Use: Yes (rarely) Alcohol type: other alcohol intake frequency: other Hx Substance Use: No substance use type: does not use Testing Laboratory Results 08/18/19 WBC 3.97 H/H 10.4/31.9 PLATELETS 184 SODIUM 143 POTASSIUM 4.1 CHLORIDE 113 CO2 28 BUN 11 CREATININE 1.41 GLUCOSE 104 Electrocardiogram Date: 09/17/19 NSR at 60bpm. Minimal voltage criteria for LVH, may be normal variant. Chest X-Ray Date: 09/17/19 Findings: + NAD
[~2019-09-29 05:35] MED LIST: LIDOCAINE HCL 2% 2 ML VIAL/AMP(20MG/ML) INFIL ONE; PROPOFOL IV EMULSION 10 MG/ML 20 ML VIAL IV ONE
[2019-09-29] MEDS ORDERED: LR 15ML/HR IV SCH (06:00)
[2019-09-29] MEDS ORDERED: CEFAZOLIN 2000MG 2,000 MG/15 ML SYR IV SCH (06:00)
[2019-09-29] MEDS ORDERED: MIDAZOLAM HCL 1 MG/ML 2ML VIAL ONE (06:42)
[2019-09-29] MEDS ORDERED: fentaNYL citrate 100 MCG/2 ML VIAL ONE ×2 (06:42→10:20)
--- NOTE | 2019-09-29 06:49 | History & Physical Bridge Note ---
Date of Service September 29, 2019 History & Physical Bridge Note I have examined the patient, reviewed the History & Physical and in the interval since the performance of the History & Physical I have noted the following changes of clinical significance: no changes noted
--- NOTE | 2019-09-29 06:53 | Anesthesiology Consultation ---
Date of Service September 29, 2019 Assessment & Plan (1) Encounter for pre-operative examination: Chart Review Chart Review: Acceptable Risk for Surgery and Patient NOT seen in Pre Admission Testing Consults Requested none ASA ASA3 Proposed Anesthesia Anesthesia Type: General and MAC Risk / Benefits Reviewed With: PT / POA / Parent / Guardian, Accepts Plan and Informed Consent Obtained History Surgery Operation Date: 09/29/19 07:00 Proposed Procedures p Left Thyroid Lobectomy, Possible Total Thyroidectomy - Dilan Rossi DO, FACS Height/Weight Height: 5 ft 4 in Weight: 107.6 kg Allergies Allergy/AdvReac Type Severity Reaction Status Date / Time NSAIDS (Non-Steroidal Allergy Severe advised to Verified 09/29/19 06:02 Anti-Inflamma avoid d/t kidney disease adhesive Allergy Mild Rash Verified 09/29/19 06:02 latex Allergy Mild skin Verified 09/29/19 06:02 irritation nickel Allergy Mild redness Verified 09/29/19 06:02 and puffiness procaine Allergy Unknown shaking Verified 09/29/19 06:02 and increased peeing with novacaine aspirin AdvReac Mild Gastrointestinal Verified 09/29/19 06:02 Upset clarithromycin AdvReac Mild abdominal Verified 09/29/19 06:02 discomfort codeine AdvReac Unknown stomach Verified 09/29/19 06:02 burning, nervous Medications Home Medications Medication Instructions Recorded Confirmed Last Taken bupropion HCl 150 mg PO QAM 08/08/18 09/29/19 09/29/19 04:30 cholecalciferol (vitamin D3) 5,000 unit PO QAM 08/08/18 09/29/19 09/28/19 20:00 [Vitamin D3] fluoxetine 60 mg PO HS 08/08/18 09/29/19 09/28/19 20:00 gabapentin 300 mg PO QAM 08/08/18 09/29/19 09/29/19 04:30 gabapentin 600 mg PO QPM 08/08/18 09/28/19 09/27/19 hydrochlorothiazide 12.5 mg PO QAM 08/08/18 09/29/19 09/27/19 08:00 hydroxychloroquine 400 mg PO QAM 08/08/18 09/29/19 09/27/19 08:00 levothyroxine 75 mcg PO QAM 08/08/18 09/29/19 09/29/19 04:30 lisinopril 10 mg PO QAM 08/08/18 09/29/19 09/27/19 08:00 loratadine 10 mg PO QAM 08/08/18 09/29/19 09/28/19 20:00 montelukast 10 mg PO QPM 08/08/18 09/29/19 09/28/19 20:00 multivitamin 2 tab PO QAM 09/21/18 09/29/19 3 Days Ago ~09/26/19 omeprazole 20 mg tablet,delayed 20 mg PO BID #30 tab 09/21/19 09/29/19 09/29/19 04:30 release ferrous sulfate 45 mg PO BID 09/28/19 09/29/19 09/28/19 20:00 NPO Date Last Intake of Fluids: 09/29/19 Time Last Intake of Fluids: 04:30 Date Last Intake of Solids: 09/28/19 Time Last Intake of Solids: 22:00 Exercise / Class Metabolic Activity II 4-5 Yardwork/Stairs/Walk up hill Past Family History Family History Mother Breast cancer Other Family history not known due to adoption Past Anesthesia History No Hx of Anesthesia Complications and No Family Hx of Anesthesia Complications History of PONV No Hx of PONV and No Hx of Motion Sickness Social History Smoking Status: Former smoker tobacco type: cigarettes Do You Dip or Chew Tobacco: No Smoking End Date: 1974 Hx Alcohol Use: Yes (rarely) Alcohol type: other alcohol intake frequency: other Hx Substance Use: No substance use type: does not use Physical Exam Vital Signs Last Vital Signs Temp 36.9 C 09/29/19 06:09 Pulse 52 L 09/29/19 06:09 Resp 20 09/29/19 06:09 BP 126/42 L 09/29/19 06:09 Pulse Ox 97 09/29/19 06:09 ENMT Mouth: no dentition abnormality Thyromental Distance: > or= 3.5 Finger Breadths Mallampati Class: II Neck normal visual inspection Respiratory normal respiratory effort Auscultation: lungs clear to auscultation bilaterally Cardiovascular Rate/Rhythm: regular rate and regular rhythm Psychiatric Orientation: alert Testing Electrocardiogram Date: 09/17/19 Findings: + NSR @ and + LVH Chest X-Ray Date: 09/17/19 Findings: + NAD
[2019-09-29] MEDS ORDERED: BUPIVACAINE 0.5 % 5 MG/1 ML MPF 30ML VIAL ONE (07:11)
[2019-09-29] MEDS ORDERED: THROMBIN 5000 UNITS KIT ONE (07:42)
[2019-09-29] MEDS ORDERED: GELATIN SPONGE SZ 100 ONE (07:42)
[2019-09-29] MEDS ORDERED: PROPOFOL IV EMULSION 10 MG/ML 20 ML VIAL IV ONE (08:08)
[2019-09-29] MEDS ORDERED: GLYCOPYRROLATE 0.2 MG/ML VIAL ONE (08:08)
[2019-09-29] MEDS ORDERED: ROCURONIUM BROMIDE 10 MG/ML 5 ML VIAL IV ONE (08:08)
[2019-09-29] MEDS ORDERED: DEXAMETHASONE SOD INJ 4 MG/ML VIAL ONE (08:08)
[2019-09-29] MEDS ORDERED: NEOSTIGMINE METHYLSULFATE 5 MG/5 ML SYR ONE (08:08)
[2019-09-29] MEDS ORDERED: ONDANSETRON INJ 2 MG/ML 2 ML VIAL ONE (08:08)
[2019-09-29] MEDS ORDERED: LIDOCAINE HCL 2% 2 ML VIAL/AMP(20MG/ML) INFIL ONE (08:08)
[2019-09-29] MEDS ORDERED: PHENYLEPHRINE 100MCG/ML 5ML SYR ONE (08:57)
--- NOTE | 2019-09-29 09:51 | Post Operative Brief Note ---
PG Immediate Post Op with CF Date of Surgery September 29, 2019 Pre & Post Diagnosis Operation Date: 09/29/19 07:00 Pre-Op Diagnosis: Papillary Thyroid Carcinoma Post-Op Diagnosis: Papillary Thyroid Carcinoma I identified the patient and participated in the time-out.: Yes Procedure Operation Date: 09/29/19 07:00 Actual Procedures p Left Thyroid Lobectomy and isthmusectomy - Dilan Rossi DO, FACS Surgeon Dilan Rossi DO, KEM Director Of Litigation Sebastian Galvan Estimated Blood Loss 10 Findings Consistent with Post-Op Diagnosis Left thyroid lobe dissected and mobilized. Recurrent laryngeal nerve identified and preserved. Left thyroid lobectomy and isthmusectomy performed. Good hemostasis. Specimens Specimen Description: A. Left thyroid and isthmus Complications none Disposition Accompanied Patient To Recovery: No Disposition: Recovery Room
--- NOTE | 2019-09-29 10:25 | Operative Report ---
PG Post Operative Report Pre & Post Diagnosis Operation Date: 09/29/19 07:00 Pre-Op Diagnosis: Papillary Thyroid Carcinoma Post-Op Diagnosis: Papillary Thyroid Carcinoma I identified the patient and participated in the time-out.: Yes Procedure Operation Date: 09/29/19 07:00 Actual Procedures p Left Thyroid Lobectomy(Left) - Dilan Rossi DO, FACS Surgeon Dilan Rossi DO, FACS Process Area Supervisor Sebastian Galvan Estimated Blood Loss 10 Findings Consistent with Post-Op Diagnosis Left thyroid lobe dissected and mobilized. Recurrent laryngeal nerve identified and preserved. Left thyroid lobectomy and isthmusectomy performed. Good hemostasis. Specimens Left thyroid lobe and isthmus Anesthesia Type General Complications none Disposition Accompanied Patient To Recovery: No Disposition: Recovery Room Indications 63-year-old female with left thyroid nodule with FNA that concerning for papillary carcinoma, plan for left thyroid lobectomy, possible total thyroidectomy. The risks of the procedure were discussed, all questions were answered, and the patient agreed to proceed with surgery as planned. Description of Procedure The patient was appropriately identified, consented, and taken to the operating room where she was placed in the supine position. General endotracheal anesthesia was induced. A roll was placed vertically between her shoulders to allow for extension of the neck. Her neck and chest were prepped and draped in the standard sterile fashion. Surgical timeout was performed and all parties were in agreement this correct patient procedure to be performed we continued as planned. The patient was placed in the semi-so position. A curvilinear transverse incision was made approximately 2 fingerbreadths above the sternal notch after the injection of local anesthetic. This was deepened down through the subcutaneous tissue with electrocautery. The platysma was identified and divided in a transverse fashion. Infraplatysmal flaps were raised up to the hyoid bone superiorly and inferiorly to the sternal notch. The median raphae was divided with electrocautery. The strap muscles on the left were dissected away from the thyroid. The middle thyroid vein was identified and ligated with 4-0 silk ties. The thyroid was then rolled medially and dissection continued. The thyroid was retracted inferiorly and the superior thyroid artery and vein were identified. These were ligated with 4-0 silk sutures and divided close to the thyroid with care not to damage to the superior laryngeal nerve. We then continued our dissection and retracted the thyroid superiorly. The inferior thyroid artery and veins were identified. Inferior to this we were able to identify the recurrent laryngeal nerve that was coming through the tracheoesophageal groove. We traced this superiorly and dissected away from the thyroid. We then continued our mobilization of the thyroid. The ligament of B erry was divided using sharp dissection and the harmonic scalpel. We continued the dissection across the midline and dissected the isthmus off of the trachea. As the isthmus entered the right lobe of the thyroid this was clamped with a tonsil. The thyroid was divided with Metzenbaum scissors and passed off the table as specimen. The thyroid was then sutured using a running horizontal mattress stitch followed by a running simple suture with a 3-0 Vicryl. Hemostasis appeared good. The wound was irrigated and thrombin soaked Gelfoam was placed into the wound bed and left in place for approximately 5 minutes. This was removed and the wound was again irrigated. Hemostasis appeared excellent. The recurrent laryngeal nerve was again identified and was preserved. The median raphae was then closed with a interrupted 3-0 Vicryl suture. The platysma was then reapproximated using interrupted 3-0 Vicryl sutures. The skin was then closed with a 4-0 Monocryl running subcuticular suture. Dermabond was placed over the wound. The patient was extubated in the operating room and taken to the PACU where she recovered without apparent incident. All sponge, needle, and instrument counts were correct at the conclusion of the case. The patient tolerated the procedure without incident. The physician's leasing assistant was present and scrubbed for the entire the procedure. He was critical in positioning the patient, prepping and draping, retraction and exposure, removal of thyroid, closure the incisions, and placement of the dressings. I attest to the content of the Intraoperative Record and any orders documented therein. Any exceptions are noted below.
[2019-09-29] MEDS ORDERED: ePHEDrine sulfate 50 MG/ML AMP IV PRN (10:28)
[2019-09-29] MEDS ORDERED: ATROPINE SULFATE 0.1 MG/ML 10ML SYR IV PRN (10:28)
[2019-09-29] MEDS ORDERED: fentaNYL citrate 100 MCG/2 ML VIAL IV PRN (10:28)
[2019-09-29] MEDS ORDERED: ONDANSETRON INJ 2 MG/ML 2 ML VIAL IV PRN (10:28)
--- NOTE | 2019-09-29 10:53 | Anesthesiology Progress Note ---
Date of Service September 29, 2019 Anesthesia Post Procedure Vital Signs Vital Signs: Temp Pulse Pulse Resp BP Pulse Ox 09/29/19 10:40 36.4 C L 63 20 152/58 H 97 09/29/19 10:30 63 13 145/56 H 98 09/29/19 10:20 62 17 143/58 H 100 09/29/19 10:10 60 17 147/59 H 100 09/29/19 10:01 36.1 C L 62 15 144/48 H 100 09/29/19 06:09 36.9 C 52 L 20 126/42 L 97 Pain Intensity Neck: Pain Intensity: 4 Transfer of Care Handoff Completed per policy Notes Mental Status: alert / awake / arousable Patient Amnestic to Procedure: Yes Nausea / Vomiting: adequately controlled Pain: adequately controlled Airway Patency, RR, SpO2: stable & adequate BP & HR: stable & adequate Hydration State: stable & adequate Anesthetic Complications: no major complications apparent
[2019-09-29] MEDS ORDERED: PNEUMOCOCCAL POLYSACCHARIDES 25 MCG/0.5 ML VIAL/SYR IM ONE (11:04)
[2019-09-29] MEDS ORDERED: OXYCODONE/ACETAMINOPHEN 5mg/325mg TAB PO PRN ×2 (11:06)
[2019-09-29] MEDS ORDERED: MoRPHine SULFATE 2 MG/ML CARP IV PRN (11:31)
[2019-09-29] MEDS ORDERED: MoRPHine SULFATE 4 MG/ML 1 ML CARP\\VIAL IV PRN (11:32)
[2019-09-29] MEDS: LACTATED RINGER'S 1,000 ML IV SCH ×2 (12:57→21:27)
[2019-09-29] MEDS: PNEUMOCOCCAL ADMINISTRATION CHARGE ONE ×2 (16:10→16:18)
[2019-09-29] MEDS: PANTOprazole 40 MG TAB PO SCH (20:19)
[2019-09-29] MEDS ORDERED: GABAPENTIN 300 MG CAP PO SCH (21:00)
[2019-09-29] MEDS ORDERED: FLUOXETINE HCL 20 MG CAP PO SCH (21:00)
[2019-09-29] MEDS ORDERED: MONTELUKAST SODIUM 10 MG TABLET PO SCH (21:00)
[2019-09-30 05:22] LABS: Hematocrit (blood only) 29.8 % (37-47); Hemoglobin 9.7 g/dL (12.0-16.0); Mean Corpuscular Hemoglobin 28.9 pg (25-34); Mean Corpuscular Hgb Conc 32.6 g/dL (32-36); Mean Corpuscular Volume 88.7 fL (80-100); Mean Platelet Volume 10.6 fL (7.4-10.4); Platelet Count 190 K/uL (130-400); RDW Coefficient of Variation 14.5 % (11.5-14.5); RDW Standard Deviation 47.6 fL (36.4-46.3); Red Blood Count 3.36 M/uL (4.2-5.4); White Blood Count 7.87 K/uL (4.8-10.8)
[2019-09-30 05:53] LABS: BUN Creatinine Ratio 14.2 (10-20); Calcium 8.5 mg/dl (8.5-10.1); Creatinine Clr Calc Pharmacy 51.8 ml/min; Est GFR (African American) 49.2; Est GFR (Non-African American) 42.4; Potassium 3.8 mmol/L (3.5-5.1)
[2019-09-30] MEDS ORDERED: LEVOTHYROXINE SODIUM 75 MCG TABLET PO SCH (06:30)
[2019-09-30] MEDS: PANTOprazole 40 MG TAB PO SCH (08:12)
[2019-09-30] MEDS ORDERED: GABAPENTIN 300 MG CAP PO SCH (09:00)
[2019-09-30] MEDS ORDERED: LORATADINE 10 MG TAB PO SCH (09:00)
[2019-09-30] MEDS ORDERED: HYDROXYCHLOROQUINE SULFATE 200 MG TAB PO SCH (09:00)
[2019-09-30] MEDS ORDERED: BuPROPion SR 150 MG TABCR PO SCH (09:00)
--- NOTE | 2019-09-30 09:57 | Surgery Progress Note ---
Date of Service September 30, 2019 Assessment & Plan (1) Papillary thyroid carcinoma: POD #1 left thyroid lobectomy, doing well Discharge to home Wound care instructions and activity restrictions reviewed Follow-up in 2 weeks Return precautions given Call with questions or concern Subjective 63-year-old female POD #1 left thyroid lobectomy and isthmusectomy for nodule with FNA showing likely papillary carcinoma. Overall doing well, minimal pain, no need for narcotics. Her voice is strong and she denies any hoarseness. Physical Exam Constitutional: WD/WN, vitals as above Neck: Incision with Dermabond in place, healing well, no evidence of infection or seroma/hematoma. Good voice projection Results & Data Vital Signs (Past 12 Hours) Vital Signs Temp Pulse Pulse Resp BP Pulse Ox 09/30/19 07:34 36.9 C 61 18 126/69 95 09/30/19 03:16 37.3 C 66 16 114/63 96 09/29/19 23:06 37.2 C 71 16 112/59 L 96 Laboratory Results Laboratory Results - last 24 hr 09/30/19 09/30/19 05:03 05:03 WBC 7.87 RBC 3.36 L Hgb 9.7 L Hct 29.8 L MCV 88.7 MCH 28.9 MCHC 32.6 RDW Std Deviation 47.6 H RDW Coeff of Flako 14.5 Plt Count 190 MPV 10.6 H Sodium 142 Potassium 3.8 Chloride 110 H Carbon Dioxide 28 Anion Gap 4.0 BUN 19 H Creatinine 1.33 H Est Cr Clr Drug Dosing 51.8 Est GFR ( Amer) 49.2 Est GFR (Non-Af Amer) 42.4 BUN/Creatinine Ratio 14.2 Glucose 102 H Calcium 8.5 PG Care Time/CCT Total # of Minutes Spent Total Time Spent with Patient: Total time spent is greater than 50% in coordination of care (as documented) at patient's floor/unit and/or counseling patient: Coding Level of Care Code None Diagnoses Papillary thyroid carcinoma C73
--- NOTE | 2019-09-30 10:11 | Discharge Summary ---
Date of Service September 30, 2019 Principal Diagnosis Papillary Thyroid Carcinoma Discharge Exam Neck normal visual inspection (incision clean, dry, no hematoma, voice normal) Discharge Data Allergies Allergy/AdvReac Type Severity Reaction Status Date / Time NSAIDS (Non-Steroidal Allergy Severe advised to Verified 09/29/19 06:02 Anti-Inflamma avoid d/t kidney disease adhesive Allergy Mild Rash Verified 09/29/19 06:02 latex Allergy Mild skin Verified 09/29/19 06:02 irritation nickel Allergy Mild redness Verified 09/29/19 06:02 and puffiness procaine Allergy Unknown shaking Verified 09/29/19 06:02 and increased peeing with novacaine aspirin AdvReac Mild Gastrointestinal Verified 09/29/19 06:02 Upset clarithromycin AdvReac Mild abdominal Verified 09/29/19 06:02 discomfort codeine AdvReac Unknown stomach Verified 09/29/19 06:02 burning, nervous Procedures Performed Operation Date: 09/29/19 07:00 Actual Procedures p Left Thyroid Lobectomy(Left) - Dilan Rossi DO, FACS Hospital Course (1) Papillary thyroid carcinoma: 63 y/o female with Papillary Thyroid Carcinoma was taken to the operating room for left thyroid lobectomy. She was observed on the surgical unit overnight. In the morning she was tolerating diet and oral analgesics. Her calcium and voice were normal. She was stable for discharge home. Total Time Total Time Spent Total Time Spent (In Minutes): 10 Discharge Plan Discharge Items Reason For Visit: Papillary Thyroid Carcinoma Discharge Diagnosis: left thyroid lobectomy Bathing: No limitations Call non-emergency contact if: you have any medication questions, your pain is not controlled, you have a fever and your wound has increased redness Follow-up/Referrals: Dilan Rossi DO, FACS [Physician] - (In 1-2 weeks as planned or call if you do not already have an appt) Pending Studies at Discharge: Yes Studies:: pathology Stand-Alone Forms: My [facility] Medications and DC Order Prescriptions: New oxycodone-acetaminophen [Percocet] 5-325 mg tablet 1 - 2 tab PO Q4H PRN (Reason: pain, initial therapy, max 6 daily) Qty: 15 RF: 0 Continued omeprazole 20 mg tablet,delayed release (DR/EC) 20 mg PO BID Qty: 30 RF: 5 levothyroxine 75 mcg tablet 75 mcg PO QAM RF: 0 lisinopril 10 mg tablet 10 mg PO QAM RF: 0 hydrochlorothiazide 12.5 mg capsule 12.5 mg PO QAM RF: 0 gabapentin 300 mg capsule 600 mg PO QPM RF: 0 montelukast 10 mg tablet 10 mg PO QPM RF: 0 hydroxychloroquine 200 mg tablet 400 mg PO QAM RF: 0 fluoxetine 20 mg capsule 60 mg PO HS RF: 0 bupropion HCl 150 mg tablet sustained-release 12 hr 150 mg PO QAM RF: 0 gabapentin 300 mg Capsule 300 mg PO QAM RF: 0 loratadine 10 mg Tablet 10 mg PO QAM RF: 0 cholecalciferol (vitamin D3) [Vitamin D3] 5,000 unit Tablet 5,000 unit PO QAM RF: 0 multivitamin Tablet 2 tab PO QAM RF: 0 ferrous sulfate 140 mg (45 mg iron) Tablet Extended Release 45 mg PO BID RF: 0 Admission Data Admit Date/Time: 09/29/19 10:07 Attending Provider: Dilan Rossi Admit Provider: Dilan Rossi Primary Care Provider: Kaylee Romano Coding Level of Care Code D/C Day Management <30 mins Diagnoses Papillary thyroid carcinoma C73
[2019-09-30] MEDS: LACTATED RINGER'S 1,000 ML IV SCH (10:30)
== END 2019-09-30 13:12 | disposition home or self-care (01) ==
LOC: 3N 05:35 → ASU 05:35

== ENCOUNTER 2019-10-17 23:44 | Observation (INO) ==
--- NOTE | 2019-10-17 23:51 | Emergency Department Note ---
Impression & Plan Abdominal pain, Vomiting, Abdominal ascites ED Provider Note NAME: LUIS ALBERTO CHAVEZ AGE: 63 SEX: F ARRIVES VIA: Walk-In INFORMANT: Patient ED PROVIDER(S): Yris Kendall DO CHIEF COMPLAINT: Abdominal pain PLAN: Disposition: The patient was admitted to the [facility] Condition: Stable MEDICAL DECISION MAKING: This is a 63-year-old female patient who presents to the emergency department with diffuse abdominal pain and vomiting. The patient had eaten some popcorn last night and had burning epigastric abdominal pain. She awoke this morning with that same burning pain and developed diffuse abdominal pain throughout the day with belching throughout the whole day. She was unable to eat today but had 4 formed bowel movements. She became more concerned tonight when she actually vomited twice food that she had eaten approximately 24-[address] scan of the abdomen pelvis showed evidence of a possible ileus but more concerning was the fact the patient had ascites that was described by stat read as moderate. This was compared to a CT scan from September 03, 2019 where no peritoneal fluid was noted at that time. I discussed the case with the [facility] and they will evaluate for further management Triage Nursing notes reviewed and agree them. Additional history obtained from Prior medical records reviewed Vital Signs: reviewed and remarkable for hypertension Differential diagnosis: Small bowel obstruction, gastritis, ileus, diverticulitis, perforated viscus ER treatment provided: IV Zofran x2 IV normal saline bolus IV normal saline drip Diagnostics interpreted by me: ECG: Normal sinus rhythm at 70. No ST segment elevation or signs of ischemia. No ectopy Cardiac Monitoring: Normal sinus rhythm at 88 Laboratory studies: See below Imaging studies: As per stat rad CT abdomen and pelvis with contrast: Status post cholecystectomy. Abdominal perihepatic perisplenic ascites. Mild to moderate in the pelvis. Some of the distal small bowel loops demonstrate mucosal thickening with fluid in the bowel loops. Soft stool is also seen in the right anterior mild bowel loops. Findings suggestive of ileus over bowel obstruction. Right hip prosthesis. Lower lumbar spine degenerative change. HPI: 63/F arrives for evaluation of abdominal pain and vomiting. This is a 63-year-old female patient who presents to the emergency department with a 24- hour history of diffuse abdominal pain and vomiting. Patient states that she ate a bag of popcorn last evening and developed a burning sensation in the pit of her stomach afterwards. She awoke this morning with the same pain at present. She had the pain throughout the day today and could not eat anything. She drank 2 cans of Coke throughout the day today and became quite nauseated tonight. She then had 2 episodes of vomiting tonight and vomited up food that she had eaten more than 24 hours ago-a hot dog, corn and potato salad. The patient does admit that she was burping all throughout the day today and had 4 formed bowel movements which is unusual for her since she has IBS and typically has diarrhea. She does have a history of gastritis but states that this pain seems to be all over her abdomen. She does note that her abdomen is distended. ROS: See above HPI for pertinent positives & negatives. A total of 10 systems reviewed and were otherwise negative. PAST MEDICAL HISTORY:See Below PAST SURGICAL HISTORY:See Below FAMILY HISTORY:See Below SOCIAL HISTORY:See Below HOME MEDICATIONS:See list ALLERGIES:See list VITALS:See Below PHYSICAL EXAMINATION: HEENT: Head - normocephalic and atraumatic Pupils are equal, round, and reactive to light. Extraocular eye muscles are intact, and sclera are anicteric. Nose - moist nasal mucosa without discharge. Mouth - moist buccal mucosa. Oropharynx is nonerythematous and there is no tonsillar exudate or edema noted. Neck: Supple; no JVD, nuchal rigidity, cervical lymphadenopathy. Heart: Regular rate and rhythm. There is a normal S1 and S2 with no murmurs, clicks, or gallops appreciated. Lungs: Clear to auscultation bilaterally with no wheezes, rales, or rhonchi. Abdomen: Soft, moderately distended and exquisitely tender to palpation in the right upper quadrant of the abdomen with good bowel sounds. There are no palpable pulsatile masses or hepatosplenomegaly. There is no guarding, rigidity, or rebound noted. Extremities: No evidence of cyanosis, clubbing, or edema. There are easily palpable peripheral pulses. Skin: warm and dry with good turgor and no rashes. ED COURSE: Times/Reassessments: 2354: The patient was evaluated in room A2. Previous electronic medical records were reviewed. An IV lock was initiated and labs are drawn as above. An order was placed for continuous cardiac monitoring. The patient was in a normal sinus rhythm at 88. The patient was ordered a liter of normal saline solution. A twelve-lead EKG was obtained. The patient was given 4 mg of IV Zofran for her nausea. She will go for CT scan of the abdomen/pelvis. 0200: I reevaluated the patient at this time. She states that the pain is somewhat better in her abdomen but she is still nauseated and occasionally regurgitates into her mouth. She will be given a second dose of IV Zofran. She has finished the bolus of normal saline solution and will start her on a normal saline drip. I will discuss the case with the [facility] and recommend further evaluation for inpatient care. Yris Kendall DO Past Med/Surg History Medical History (Updated 10/18/19 @ 03:18 by Yris Kendall DO) Anemia chronic Asthma stable; no inhalers Depression Gastritis 09/2018 - started on PPI GERD (gastroesophageal reflux disease) occasional Hypertension Hypothyroidism Kidney disease, chronic, stage IV (GFR 15-29 ml/min) under surveillance; not on dialysis/GFR 39.5 on 08/2019 labs Morbid obesity Papillary thyroid carcinoma Polymyalgia rheumatica on hydroxychloroquine Surgical History (Updated 10/05/19 @ 15:40 by Dilan Rossi DO, FACS) H/O partial thyroidectomy (09/29/19) Left Thyroid Lobectomy Dr. Rossi 09/29/19 History of appendectomy History of cholecystectomy History of colonoscopy History of dental surgery dental implants History of endometrial ablation History of endoscopic sinus surgery x2 History of esophagogastroduodenoscopy (EGD) History of laparoscopy multiple--endometriosis History of nasal polypectomy x2 History of phacoemulsification of cataract of both eyes with intraocular lens implantation History of removal of cyst LEFT FOOT History of right hip replacement (Resolved) 12/19/18: SAB x1 attempt (patient had stated had had bupivacaine in the past without issue) at [facility] History of right oophorectomy History of tonsillectomy History of total left knee replacement (TKR) x2 History of total right knee replacement (TKR) History of wisdom tooth extraction Social History (Updated 09/02/19 @ 11:53 by Georgie Walker RN) Preferred Language: Yoruba Communication Ability: Effective Sensor Operator Required: No Beliefs That Will Affect Care: None marital status: marital status details: has boyfriend Current Living Situation: Significant Other Current Living Situation Comment: and daughter current occupational status: 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 other: 2 adopted children Feels Safe at Home: Yes Smoking Status: Never smoker Tobacco Type: cigarettes ; packs per day: 1 ; Second Hand Exposure: No ; Hx Alcohol Use: Yes (rarely) Alcohol type: other Alcohol Intake Frequency: Holidays/Special Occasions Hx Substance Use: No Allergies Allergies Allergy/AdvReac Type Severity Reaction Status Date / Time NSAIDS (Non-Steroidal Allergy Severe advised to Verified 10/18/19 00:20 Anti-Inflamma avoid d/t kidney disease adhesive Allergy Mild Rash Verified 10/18/19 00:20 latex Allergy Mild skin Verified 10/18/19 00:20 irritation nickel Allergy Mild redness Verified 10/18/19 00:20 and puffiness procaine Allergy Unknown shaking Verified 10/18/19 00:20 and increased peeing with novacaine aspirin AdvReac Mild Gastrointestinal Verified 10/18/19 00:20 Upset clarithromycin AdvReac Mild abdominal Verified 10/18/19 00:20 discomfort codeine AdvReac Unknown stomach Verified 10/18/19 00:20 burning, nervous Home Meds Home Medications Medication Instructions Recorded Confirmed bupropion HCl 150 mg PO QAM 08/08/18 10/18/19 cholecalciferol (vitamin D3) 5,000 unit PO QAM 08/08/18 10/18/19 [Vitamin D3] fluoxetine 60 mg PO 08/08/18 10/18/19 gabapentin 300 mg PO .MID DAY 08/08/18 10/18/19 gabapentin 300 mg PO QAM 08/08/18 10/18/19 hydrochlorothiazide 12.5 mg PO QAM 08/08/18 10/18/19 hydroxychloroquine 400 mg PO QAM 08/08/18 10/18/19 levothyroxine 75 mcg PO QAM 08/08/18 10/18/19 lisinopril 10 mg PO QAM 08/08/18 10/18/19 montelukast 10 mg PO QPM 08/08/18 10/18/19 multivitamin 1 tab PO QAM 09/21/18 10/18/19 ferrous gluconate 324 mg PO BID 10/18/19 10/18/19 gabapentin 600 mg PO 07/06/20 07/06/20 loratadine 10 mg PO DAILY PRN 10/18/19 10/18/19 mometasone 1 spray INTRANASAL DAILY 10/18/19 10/18/19 omeprazole 20 mg PO QAM 10/18/19 10/18/19 Results & Data (ED) Vital Signs Vital Signs - 24 hr 10/17/19 23:47 10/18/19 01:13 10/18/19 02:01 Temperature 36.7 C Temperature Source Oral Pulse Rate 88 Pulse Rate [Finger] 55 L 56 L Respiratory Rate 18 20 20 Respiratory Effort / Characteristics Non-Labored Non-Labored Spontaneous Respiratory Depth Normal Normal Respiratory Pattern Regular Blood Pressure 128/75 Blood Pressure [Right Arm] 142/80 H 164/91 H Blood Pressure Mean 92 Blood Pressure Mean [Right Arm] 100 115 Pulse Oximetry 97 98 99 Oxygen Delivery Method Room Air Room Air Room Air Sepsis Recent Fever Within 48 Hours No Sepsis Action Taken by Nursing No Action Required Laboratory Data Result diagrams: 10/17/19 23:55 10/17/19 23:55 Lab Results 10/17/19 10/17/19 10/18/19 Range/Units 23:55 23:55 02:15 WBC 9.17 (4.8-10.8) K/uL RBC 4.97 (4.2-5.4) M/uL Hgb 14.1 (12.0-16.0) g/dL Hct 42.8 (37-47) % MCV 86.1 (80-100) fL MCH 28.4 (25-34) pg MCHC 32.9 (32-36) g/dL RDW Std Deviation 45.2 (36.4-46.3) fL RDW Coeff of Flako 14.5 (11.5-14.5) % Plt Count 325 (130-400) K/uL MPV 11.2 H (7.4-10.4) fL Immature Gran % (Auto) 0.2 % Neut % (Auto) 71.5 % Lymph % (Auto) 19.3 % [place] % (Auto) 6.8 % Eos % (Auto) 2.1 % Baso % (Auto) 0.1 % Neut # (Auto) 6.56 H (1.4-6.5) K/uL Lymph # (Auto) 1.77 (1.2-3.4) K/uL [place] # (Auto) 0.62 H (0.11-0.59) K/uL Eos # (Auto) 0.19 (0-0.5) K/uL Baso # (Auto) 0.01 (0-0.2) K/uL Immature Gran # (Auto) 0.02 (0.00-0.02) K/uL Sodium 138 (136-145) mmol/L Potassium 3.7 (3.5-5.1) mmol/L Chloride 106 (98-107) mmol/L Carbon Dioxide 24 (21-32) mmol/L Anion Gap 8.0 (3-11) BUN 20 H (7-18) mg/dl Creatinine 1.56 H (0.6-1.2) mg/dl Est Cr Clr Drug Dosing 44.0 ml/min Est GFR ( Amer) 40.6 Est GFR (Non-Af Amer) 35.0 BUN/Creatinine Ratio 12.9 (10-20) Glucose 122 H (70-99) mg/dl Calcium 9.2 (8.5-10.1) mg/dl Total Bilirubin 0.5 (0.2-1) mg/dl AST 20 (15-37) U/L ALT 18 (12-78) U/L Alkaline Phosphatase 103 (45-117) U/L Total Protein 7.1 (6.4-8.2) gm/dl Albumin 3.3 L (3.4-5.0) gm/dl Globulin 3.8 (2.5-4.0) gm/dl Albumin/Globulin Ratio 0.9 (0.9-2) Lipase 108 (73-393) U/L Urine Color Yellow Urine Appearance Clear (Clear) Urine pH 5.0 (4.5-7.5) Ur Specific [place] 1.022 (1.000-1.030) Urine Protein Negative (Negative) Urine Glucose (UA) Negative (Negative) Urine Ketones Negative (Negative) Urine Blood Negative (Negative) Urine Nitrite Negative (Negative) Urine Bilirubin Negative (Negative) Urine Urobilinogen Negative (Negative) Ur Leukocyte Esterase 1+ H (Negative) Urine WBC (Auto) 5-10 H (0-5) /hpf Urine RBC (Auto) 0-4 (0-4) /hpf U Hyaline Cast (Auto) 1-5 (0-5) /lpf U Epithel Cells (Auto) >30 H (0-5) /lpf Urine Bacteria (Auto) Negative (Negative) Administered Medications Sodium Chloride (Nss) 500 mls @ 125 mls/hr IV .Q4H LOU Stop: 11/17/19 02:14 Last Admin: 10/18/19 02:18 Dose: 125 mls/hr Documented by: [id number] Ioversol (Optiray 320 100ml) 93 ml IV ONCE PRN PRN Reason: Interaction Checking Stop: 10/22/19 00:34 Last Admin: 10/18/19 00:36 Dose: 1 ml Documented by: [id number] Discontinued Medications Sodium Chloride (Nss 1000ml) 1,000 mls @ 999 mls/hr IV .Q1H1M ONE Stop: 10/18/19 01:06 Last Infusion: 10/18/19 01:41 Dose: 0 mls/hr Documented by: [id number] Admin: 10/18/19 00:13 Dose: 999 mls/hr Documented by: [id number] Ondansetron HCl (Zofran) 4 mg IV NOW STA Stop: 10/18/19 00:07 Last Admin: 10/18/19 00:12 Dose: 4 mg Documented by: [id number] Ondansetron HCl (Zofran) 4 mg IV NOW STA Stop: 10/18/19 02:02 Last Admin: 10/18/19 02:18 Dose: 4 mg Documented by: [id number] Discharge Plan Visit Data Chief Complaint: Vomiting Stated Complaint: VOMITING, ABD PAINS ED Provider: Yris Kendall Discharge Problem: Abdominal pain, Vomiting, Abdominal ascites Forms Stand Alone Forms: [facility] Prescriptions Prescriptions: No Action levothyroxine 75 mcg tablet 75 mcg PO QAM RF: 0 lisinopril 10 mg tablet 10 mg PO QAM RF: 0 hydrochlorothiazide 12.5 mg capsule 12.5 mg PO QAM RF: 0 gabapentin 300 mg capsule 300 mg PO .MID DAY RF: 0 montelukast 10 mg tablet 10 mg PO QPM RF: 0 hydroxychloroquine 200 mg tablet 400 mg PO QAM RF: 0 fluoxetine 20 mg capsule 60 mg PO HS RF: 0 bupropion HCl 150 mg tablet sustained-release 12 hr 150 mg PO QAM RF: 0 gabapentin 300 mg Capsule 300 mg PO QAM RF: 0 cholecalciferol (vitamin D3) [Vitamin D3] 5,000 unit Tablet 5,000 unit PO QAM RF: 0 ferrous gluconate 324 mg (38 mg iron) tablet 324 mg PO BID RF: 0 gabapentin 600 mg tablet 600 mg PO HS RF: 0 mometasone 50 mcg/actuation spray,non-aerosol 1 spray intranasal DAILY RF: 0 omeprazole 20 mg tablet,delayed release (DR/EC) 20 mg PO QAM RF: 0 loratadine 10 mg Tablet 10 mg PO DAILY PRN (Reason: Allergy Symptoms) RF: 0 multivitamin Tablet 1 tab PO QAM RF: 0 Discharge Problem: Abdominal pain Qualifiers: Abdominal location: generalized Qualified Code(s): R10.84 - Generalized a bdominal pain Vomiting Qualifiers: Vomiting type: unspecified Vomiting Intractability: non-intractable Nausea presence: with nausea Qualified Code(s): R11.2 - Nausea with vomiting, unspecified Abdominal ascites Qualifiers: Ascites type: other type Qualified Code(s): R18.8 - Other ascites
[2019-10-18] MEDS ORDERED: ONDANSETRON INJ 2 MG/ML 2 ML VIAL IV STA ×2 (00:06→02:01)
[2019-10-18] MEDS ORDERED: SODIUM CHLORIDE 0.9% 1000ML 1,000 ML IV ONE (00:06)
[2019-10-18 00:24] LABS: Basophils # (auto) 0.01 K/uL (0-0.2); Basophils % (auto) 0.1 %; Eosinophils # (auto) 0.19 K/uL (0-0.5); Eosinophils % (auto) 2.1 %; Hematocrit (blood only) 42.8 % (37-47); Hemoglobin 14.1 g/dL (12.0-16.0); Immature Granulocytes # (auto) 0.02 K/uL (0.00-0.02); Immature Granulocytes % (auto) 0.2 %; Lymphocytes # (auto) 1.77 K/uL (1.2-3.4); Lymphocytes % (auto) 19.3 %; Mean Corpuscular Hemoglobin 28.4 pg (25-34); Mean Corpuscular Hgb Conc 32.9 g/dL (32-36); Mean Corpuscular Volume 86.1 fL (80-100); Mean Platelet Volume 11.2 fL (7.4-10.4); Monocytes # (auto) 0.62 K/uL (0.11-0.59); Monocytes % (auto) 6.8 %; Neutrophils # (auto) 6.56 K/uL (1.4-6.5); Neutrophils % (auto) 71.5 %; Platelet Count 325 K/uL (130-400); RDW Coefficient of Variation 14.5 % (11.5-14.5); RDW Standard Deviation 45.2 fL (36.4-46.3); Red Blood Count 4.97 M/uL (4.2-5.4); White Blood Count 9.17 K/uL (4.8-10.8)
[2019-10-18 00:32] LABS: Albumin Level 3.3 gm/dl (3.4-5.0); BUN Creatinine Ratio 12.9 (10-20); Calcium 9.2 mg/dl (8.5-10.1); Est GFR (African American) 40.6; Potassium 3.7 mmol/L (3.5-5.1)
[2019-10-18 00:34] LABS: Albumin Globulin Ratio 0.9 (0.9-2); Bilirubin,Total 0.5 mg/dl (0.2-1); Globulin 3.8 gm/dl (2.5-4.0); Total Protein 7.1 gm/dl (6.4-8.2)
[2019-10-18] MEDS ORDERED: IOVERSOL 100ml IV PRN (00:35)
[2019-10-18] MEDS ORDERED: SODIUM CHLORIDE 0.9% 500 ML IV SCH (02:15)
[2019-10-18 02:31] LABS: Appearance Urine Clear (Clear); Bacteria Urine Automated Negative (Negative); Bilirubin Urine Negative (Negative); Blood Urine Negative (Negative); Color Urine Yellow; Epithelial Cell Urine Auto >30 /lpf (0-5); Glucose Urine UA Negative (Negative); Ketones Urine Negative (Negative); Leukocyte Esterase Urine 1+ (Negative); Nitrite Urine Negative (Negative); Protein Urine Negative (Negative); RBC Urine Automated 0-4 /hpf (0-4); Specific Gravity Urine 1.022 (1.000-1.030); Urobilinogen Urine Negative (Negative)
[2019-10-18] MEDS ORDERED: FAMOTIDINE 20MG IV PUSH 20 MG/5 ML SYR IV STA (03:26)
[2019-10-18] MEDS ORDERED: ACETAMINOPHEN 325 MG TAB PO PRN (03:58)
[2019-10-18] MEDS: SODIUM CHLORIDE 0.9% 1000ML 1,000 ML IV SCH ×2 (04:04→15:30)
--- NOTE | 2019-10-18 04:49 | History & Physical Report ---
Date of Service October 18, 2019 Assessment & Plan (1) Ileus: Ileus/enteritis/abdominal ascites/vomiting/chronic diarrhea/abnormal CT scan of small bowel- Patient is here with similar symptoms to admission from 08/15-08/20. Place on NSS at 80 mils per hour. Zofran 4 mg IV every 6 hours as needed Famotidine 20 mg IV every 12 hours N.p.o. overnight, and then advance diet as tolerated at the timing and direction of gastroenterology Dr. Oro. Suggested to avoid hard to digest foods such as popcorn, which likely precipitated this process today. Present on Admission?: Yes (2) Enteritis: See above Present on Admission?: Yes (3) Abdominal ascites: See above Present on Admission?: Yes (4) Vomiting: See above Present on Admission?: Yes (5) Chronic diarrhea: See above Patient reports diarrhea since age 15. Present on Admission?: Yes (6) Abnormal CT scan, small bowel: See above Present on Admission?: Yes (7) GERD (gastroesophageal reflux disease): Place on famotidine 20 mg IV every 12 hours Present on Admission?: Yes (8) Depression: Continue bupropion, fluoxetine, and gabapentin Present on Admission?: Yes (9) Polymyalgia rheumatica: When able to take p.o., resume hydroxychloroquine Present on Admission?: Yes (10) Hypertension: For now, hold lisinopril and HCTZ. Present on Admission?: Yes Admission and Anticipated Discharge Date Admission Date: October 18, 2019 History of Present Illness Chief Complaint: Patient presents to the emergency department with complaint of abdominal pain, nausea, vomiting and diarrhea. Primary Care Provider: Kaylee Romano MD The patient is a 63-year-old female with a past medical history including chronic diarrhea, GERD, dyspepsia, IBS, enteritis, CKD stage III yea, morbid obesity with BMI 40.0-44.9, papillary thyroid carcinoma, asthma, PMR, hypothyroidism, hypertension and depression. She was most recently admitted to [facility] from 08/15-08/20 for enteritis with ascites, which was treated conservatively. She underwent small bowel endoscopy on 09/[address] Oro from gastroenterology. The following day on 09/28 she underwent a left partial thyroid lobectomy for diagnosis of papillary thyroid cancer. She reports that she has had diarrhea since age 15. Her symptoms have never really completely returned to will be considered normal stool character. This most recent episode occurred after she ate a large bag of popcorn. CT scan of abdomen and pelvis while in the ED tonight showed what was most likely an ileus with the presence of ascites, which was not directly compared in volume by radiology to the CT from 08/15. Allergies Allergy/AdvReac Type Severity Reaction Status Date / Time NSAIDS (Non-Steroidal Allergy Severe advised to Verified 10/18/19 00:20 Anti-Inflamma avoid d/t kidney disease adhesive Allergy Mild Rash Verified 10/18/19 00:20 latex Allergy Mild skin Verified 10/18/19 00:20 irritation nickel Allergy Mild redness Verified 10/18/19 00:20 and puffiness procaine Allergy Unknown shaking Verified 10/18/19 00:20 and increased peeing with novacaine aspirin AdvReac Mild Gastrointestinal Verified 10/18/19 00:20 Upset clarithromycin AdvReac Mild abdominal Verified 10/18/19 00:20 discomfort codeine AdvReac Unknown stomach Verified 10/18/19 00:20 burning, nervous Home Medications Home Medications Medication Instructions Recorded Confirmed Type bupropion HCl 150 mg PO QAM 08/08/18 10/18/19 History cholecalciferol (vitamin D3) 5,000 unit PO QAM 08/08/18 10/18/19 History [Vitamin D3] fluoxetine 60 mg PO HS 08/08/18 10/18/19 History gabapentin 300 mg PO .MID DAY 08/08/18 10/18/19 History gabapentin 300 mg PO QAM 08/08/18 10/18/19 History hydrochlorothiazide 12.5 mg PO QAM 08/08/18 10/18/19 History hydroxychloroquine 400 mg PO QAM 08/08/18 10/18/19 History levothyroxine 75 mcg PO QAM 08/08/18 10/18/19 History lisinopril 10 mg PO QAM 08/08/18 10/18/19 History montelukast 10 mg PO QPM 08/08/18 10/18/19 History multivitamin 1 tab PO QAM 09/21/18 10/18/19 History ferrous gluconate 324 mg PO BID 10/18/19 10/18/19 History gabapentin 600 mg PO HS 10/18/19 10/18/19 History loratadine 10 mg PO DAILY PRN 10/18/19 10/18/19 History mometasone 1 spray INTRANASAL DAILY 10/18/19 10/18/19 History omeprazole 20 mg PO QAM 10/18/19 10/18/19 History Past Med/Surg History Medical History (Updated 10/18/19 @ 04:51 by Manuel Pollack MD) Anemia chronic Asthma stable; no inhalers Depression Gastritis 09/2018 - started on PPI GERD (gastroesophageal reflux disease) occasional Hypertension Hypothyroidism Kidney disease, chronic, stage IV (GFR 15-29 ml/min) under surveillance; not on dialysis/GFR 39.5 on 08/2019 labs Morbid obesity Papillary thyroid carcinoma Polymyalgia rheumatica on hydroxychloroquine Surgical History (Updated 10/05/19 @ 15:40 by Dilan Rossi DO, FACS) H/O partial thyroidectomy (09/29/19) Left Thyroid Lobectomy Dr. Rossi 09/29/19 History of appendectomy History of cholecystectomy History of colonoscopy History of dental surgery dental implants History of endometrial ablation History of endoscopic sinus surgery x2 History of esophagogastroduodenoscopy (EGD) History of laparoscopy multiple--endometriosis History of nasal polypectomy x2 History of phacoemulsification of cataract of both eyes with intraocular lens implantation History of removal of cyst LEFT FOOT History of right hip replacement (Resolved) 12/19/18: SAB x1 attempt (patient had stated had had bupivacaine in the past without issue) at [facility] History of right oophorectomy History of tonsillectomy History of total left knee replacement (TKR) x2 History of total right knee replacement (TKR) History of wisdom tooth extraction Social History (Updated 09/02/19 @ 11:53 by Georgie Walker RN) Preferred Language: Azeri Communication Ability: Effective Bookkeeping Assistant Required: No Beliefs That Will Affect Care: None marital status: marital status details: has boyfriend Current Living Situation: Family and Significant Other Current Living Situation Comment: and daughter current occupational status: retired 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 Other Information That Helps Us Care for You: No other: 2 adopted children Feels Safe at Home: Yes Safety Concerns: Feels Safe At This Time Smoking Status: Former smoker Tobacco Type: cigarettes ; packs per day: 1 ; Do You Dip or Chew Tobacco: No ; Smoking End Date: 1974 ; Second Hand Exposure: No ; Tobacco Cessation Education Requested by Patient: No Hx Alcohol Use: Yes Alcohol type: other Alcohol Intake Frequency: Holidays/Special Occasions Hx Substance Use: No Review of Systems Review of Systems: The patient denies chest pain, palpitations, shortness of breath, dyspnea on exertion, cough, lower extremity swelling, sore throat, fevers, chills, sweats, blood in urine or stool, dysuria, urinary frequency or urgency, lightheadedness, dizziness, headache, memory loss, loss of consciousness, rash, abnormal bruising or bleeding, imbalance, focal or generalized weakness, numbness or tingling in arms or legs, generalized arthralgias or myalgias, back or neck pain, or night sweats. The review of systems is otherwise negative other than for that already noted above, and at least 10 systems have been reviewed. Physical Exam Physical Exam: The patient is awake, alert and oriented 3, well developed and well nourished, normocephalic and atraumatic, lying in bed and in no acute distress. HEENT--PERRL, EOMI, mucous membranes and oropharynx dry. Neck--supple. No JVD. No bruits. Thyroid normal, trachea midline, no adenopathy. Heart--normal S1 and S2. No murmurs, rubs or gallops. Lungs--clear bilaterally, no respiratory distress, no accessory muscle use. Abdomen--normal bowel sounds and soft. Generalized mild tenderness. Nondistended, no hernias or masses, no organomegaly. Extremities--no cyanosis or clubbing. No edema. Dermatologic--normal skin turgor, normal color, no abnormal lymph nodes, no rash. Neurologic--cranial nerves II through XII grossly intact. Rheumatologic--normal range of motion. Psychiatric--normal affect. Results & Data Results & Data ([facility]) Vital Signs (Past 12 Hours) Vital Signs Temp Pulse Pulse Resp BP BP Pulse Ox 10/18/19 03:00 64 20 144/71 H 97 10/18/19 02:01 56 L 20 164/91 H 99 10/18/19 01:13 55 L 20 142/80 H 98 10/17/19 23:47 98.1 F 88 18 128/75 97 Laboratory Results Laboratory Results WBC 9.17 K/uL (4.8-10.8) 10/17/19 23:55 RBC 4.97 M/uL (4.2-5.4) 10/17/19 23:55 Hgb 14.1 g/dL (12.0-16.0) 10/17/19 23:55 Hct 42.8 % (37-47) 10/17/19 23:55 MCV 86.1 fL (80-100) 10/17/19 23:55 MCH 28.4 pg (25-34) 10/17/19 23:55 MCHC 32.9 g/dL (32-36) 10/17/19 23:55 RDW Std Deviation 45.2 fL (36.4-46.3) 10/17/19 23: RDW Coeff of Flako 14.5 % (11.5-14.5) 10/17/19 23: Plt Count 325 K/uL (130-400) 10/17/19 23:55 MPV 11.2 fL (7.4-10.4) H 10/17/19 23:55 Immature Gran % (Auto) 0.2 % 10/17/19 23:55 Neut % (Auto) 71.5 % 10/17/19 23:55 Lymph % (Auto) 19.3 % 10/17/19 23:55 [place] % (Auto) 6.8 % 10/17/19 23:55 Eos % (Auto) 2.1 % 10/17/19 23:55 Baso % (Auto) 0.1 % 10/17/19 23:55 Neut # (Auto) 6.56 K/uL (1.4-6.5) H 10/17/19 23:55 Lymph # (Auto) 1.77 K/uL (1.2-3.4) 10/17/19 23:55 [place] # (Auto) 0.62 K/uL (0.11-0.59) H 10/17/19 23:55 Eos # (Auto) 0.19 K/uL (0-0.5) 10/17/19 23:55 Baso # (Auto) 0.01 K/uL (0-0.2) 10/17/19 23:55 Immature Gran # (Auto) 0.02 K/uL (0.00-0.02) 10/17/19 23:55 Sodium 138 mmol/L (136-145) 10/17/19 23:55 Potassium 3.7 mmol/L (3.5-5.1) 10/17/19 23:55 Chloride 106 mmol/L (98-107) 10/17/19 23:55 Carbon Dioxide 24 mmol/L (21-32) 10/17/19 23:55 Anion Gap 8.0 (3-11) 10/17/19 23:55 BUN 20 mg/dl (7-18) H 10/17/19 23:55 Creatinine 1.56 mg/dl (0.6-1.2) H 10/17/19 23:55 Est Cr Clr Drug Dosing 44.0 ml/min 10/17/19 23:55 Est GFR ( Amer) 40.6 10/17/19 23:55 Est GFR (Non-Af Amer) 35.0 10/17/19 23:55 BUN/Creatinine Ratio 12.9 (10-20) 10/17/19 23:55 Glucose 122 mg/dl (70-99) H 10/17/19 23:55 Calcium 9.2 mg/dl (8.5-10.1) 10/17/19 23:55 Total Bilirubin 0.5 mg/dl (0.2-1) 10/17/19 23:55 AST 20 U/L (15-37) 10/17/19 23:55 ALT 18 U/L (12-78) 10/17/19 23:55 Alkaline Phosphatase 103 U/L (45-117) 10/17/19 23:55 Total Protein 7.1 gm/dl (6.4-8.2) 10/17/19 23:55 Albumin 3.3 gm/dl (3.4-5.0) L 10/17/19 23:55 Globulin 3.8 gm/dl (2.5-4.0) 10/17/19 23:55 Albumin/Globulin Ratio 0.9 (0.9-2) 10/17/19 23:55 Lipase 108 U/L (73-393) 10/17/19 23:55 Urine Color Yellow 10/18/19 02:15 Urine Appearance Clear (Clear) 10/18/19 02:15 Urine pH 5.0 (4.5-7.5) 10/18/19 02:15 Ur Specific [place] 1.022 (1.000-1.030) 10/18/19 02:15 Urine Protein Negative (Negative) 10/18/19 02:15 Urine Glucose (UA) Negative (Negative) 10/18/19 02:15 Urine Ketones Negative (Negative) 10/18/19 02:15 Urine Blood Negative (Negative) 10/18/19 02:15 Urine Nitrite Negative (Negative) 10/18/19 02:15 Urine Bilirubin Negative (Negative) 10/18/19 02:15 Urine Urobilinogen Negative (Negative) 10/18/19 02:15 Ur Leukocyte Esterase 1+ (Negative) H 10/18/19 02:15 Urine WBC (Auto) 5-10 /hpf (0-5) H 10/18/19 02:15 Urine RBC (Auto) 0-4 /hpf (0-4) 10/18/19 02:15 U Hyaline Cast (Auto) 1-5 /lpf (0-5) 10/18/19 02:15 U Epithel Cells (Auto) >30 /lpf (0-5) H 10/18/19 02:15 Urine Bacteria (Auto) Negative (Negative) 10/18/19 02:15 Diagnostic Findings [facility] Patient: LUIS ALBERTO CHAVEZ (Female) : 55 Status: ER Date: 10/18/19 01:10 Room #: History: gen abd pain n/v Slices: [phone] Priors: Tech: Dilan Deleon @ [phone] Exams: CT ABDOMEN & PELVIS With Contrast Contrast: IV Amt: 93 ml optiray Accession Numbers: [id number] Preliminary Findings Only See Final Report For Complete Findings CT ABDOMEN & PELVIS With Contrast: Comparison: 08/16/2019 Status post cholecystectomy. Abdominal perihepatic perisplenic ascites. Mild to moderate in the pelvis Some of the distal small bowel loops demonstrate mucosal thickening with fluid in the bowel loops. Soft stool is also seen in the right anterior mid bowel loops. Findings are suggestive of ileus over bowel obstruction Right hip prosthesis Lower lumbar spine degenerative change. Radiologist: Daniel Singh MD Study ready at 01:14 and initial results transmitted at 01:36 *This report constitutes a preliminary interpretation only. Non-acute findings felt to be unrelated to the clinical presentation may not be discussed in this report. The study will be interpreted and a final report will be generated by the local Radiologist the following shift. To reach the hospital radiology department call [phone]. If a discrepancy is found between the preliminary and final interpretations of this study, please notify us via our Client Portal at [email or web address] QA [email or web address].You can also fax this report with a description of the discrepancy, or include the final report, to our daytime fax number [phone].If faxing, please indicate the severity of discrepancy using one of the following categories: [ ] 1 - Agree/Informational [ ] 2 - Unlikely to Affect Management [ ] 3 - Possible Eventual Change of Management [ ] 4 - Probable Immediate Change of Management For all other patient related information, please fax us at [phone]. [id number] Code Status & VTE Plan Code Status Full code VTE Prophylaxis Plan VTE Prophylaxis will be ordered: Yes PG Care Time/CCT Total # of Minutes Spent Total Time Spent with Patient: Total time spent is greater than 50% in coordination of care (as documented) at patient's floor/unit and/or counseling patient: Coding Level of Care Code 45612 Initial Inpt Care Lvl 3 Diagnoses Ileus K56.7 Enteritis K52.9 Abdominal ascites R18.8 Ascites type: other type Vomiting R11.[address] diarrhea [address]52[address] scan, small bowel R93.3 GERD (gastroesophageal reflux disease) K21.9 Esophagitis presence: esophagitis presence not specified Depression F32.9 Depression Type: unspecified Polymyalgia rheumatica M35.3 Hypertension I10 Hypertension type: essential hypertension (1) Abdominal ascites Ascites type: other type Qualified Code(s): R18.8 - Other ascites (2) GERD (gastroesophageal reflux disease) Esophagitis presence: esophagitis presence not specified Qualified Code(s): K21.9 - Gastro-esophageal reflux disease without esophagitis (3) Depression Depression Type: unspecified Qualified Code(s): F32.9 - Major depressive disorder, single episode, unspecified (4) Hypertension Hypertension type: essential hypertension Qualified Code(s): I10 - Essential (primary) hypertension
[2019-10-18 06:53] LABS: Albumin Level 2.6 gm/dl (3.4-5.0); BUN Creatinine Ratio 15.5 (10-20); Calcium 8.1 mg/dl (8.5-10.1); Creatinine Clr Calc Pharmacy 55.2 ml/min; Est GFR (Non-African American) 45.7
[2019-10-18 06:54] LABS: Phosphorus 3.1 mg/dl (2.5-4.9)
--- NOTE | 2019-10-18 08:11 | CT Scan Report ---
CT OF THE ABDOMEN AND PELVIS WITH CONTRAST CLINICAL HISTORY: Abdominal pain, nausea and vomiting. Evaluate for small bowel obstruction. COMPARISON STUDY: CT of the abdomen and pelvis September 03, 2019. TECHNIQUE: Following IV administration of 93 mL of Optiray-320, axial images of the abdomen and pelvi s were obtained from the lung bases to the proximal femurs. Images were reviewed in the axial, sagitt al, and coronal planes. IV contrast was administered without complication. Automated exposure contro l was utilized for the study. A dose lowering technique was utilized adhering to the principles of A EMILY. CT DOSE: 1219.14 mGy.cm FINDINGS: Lung bases are unremarkable. Small to moderate ascites is noted. This was not present on CT of September 03, 2019. There is no biliary ductal dilatation status post cholecystectomy. The spleen, adre nal glands and pancreas are unremarkable. There are no hepatic lesions. Fat-containing lesions within the upper pole of the left kidney reflect angiomyolipomas. There is moderate left renal cortical thi nning. There is no hydronephrosis. No pneumatosis, free air or portal venous gas is present. The appe ndix is normal. There is moderate wall thickening of multiple small bowel loops with evidence for hyp eremia with mesenteric infiltration. This is new since CT of September 03, 2019. Similar but less severe fi ndings were shown on earlier exam of August 16, 2019. Major vasculature is patent. Right hip arthroplasty is noted. There is no transition point to suggest a bowel obstruction. IMPRESSION: Wall thickening of multiple small bowel loops with mesenteric infiltration, evidence for hyperemia and small to moderate ascites. No transition point to suggest a bowel obstruction. The find ings favor a nonspecific enteritis which may be inflammatory, infectious or ischemic in etiology. An additional consideration is JASMYNE inhibitor related angioedema if this patient is on an JASMYNE inhibitor. ACT 112: Negative or not required by law. Electronically signed by: Chester Phelps M.D. 10/18/2019 8:10 AM
[2019-10-18] MEDS: FAMOTIDINE 20 MG in SYRINGE 3 ML IV SCH ×2 (08:52→21:00)
[2019-10-18] MEDS: HEPARIN SOD 5,000 UNIT/0.5 ML VIAL SQ SCH ×2 (08:55→20:48)
--- NOTE | 2019-10-18 10:12 | Gastrointestinal Consultation ---
Date of Consultation October 18, 2019 Assessment & Plan (1) Ileus: (2) Abdominal pain: (3) Abdominal ascites: 1. Keep NPO for now. 2. Check a CA 125. 3. Lisinopril has been held. 4. Stool studies to exclude infectious etiology. 5. Additional recommendations will be made pending results of testing. Thank you for allowing us to participate in the care of this patient. If you have questions or concerns, please do not hesitate to contact us. Supervising Physician Co-Signing Physician Notes Agree with FRANCISCO Diez Abd: Soft, NT, ND, +BS CA-125 and stool studies pending Hold JASMYNE inhibitor Continue supportive care History of Present Illness Reason for Consultation: Ileus Requesting Physician: Dr. Pollack Attending Physician: Lukas Franz History of Present Illness Patient is a 63 year-old female with a history of enteritis with associated ascites admitted in August of this year. She did undergo a small bowel enteroscopy by Dr. Oro which was unremarkable. She returned to the ER last evening with abdominal pain and bloating which she states was progressive throughout the day yesterday. There was associated nausea but no vomiting. She states she did have 4 bowel movements yesterday but no overt bloody or melanotic stools. CT imaging obtained demonstrated suspected ileus with associated ascites. Question is given by radiology as to effect of JASMYNE inhibitor. She does also carry a history of papillary thyroid cancer. Today, she reports improved abdominal pain and bloating. She remains NPO. Allergies Allergy/AdvReac Type Severity Reaction Status Date / Time NSAIDS (Non-Steroidal Allergy Severe advised to Verified 10/18/19 00:20 Anti-Inflamma avoid d/t kidney disease adhesive Allergy Mild Rash Verified 10/18/19 00:20 latex Allergy Mild skin Verified 10/18/19 00:20 irritation nickel Allergy Mild redness Verified 10/18/19 00:20 and puffiness mushroom Allergy Unknown Vomiting Verified 10/18/19 14:39 procaine Allergy Unknown shaking Verified 10/18/19 00:20 and increased peeing with novacaine aspirin AdvReac Mild Gastrointestinal Verified 10/18/19 00:20 Upset clarithromycin AdvReac Mild abdominal Verified 10/18/19 00:20 discomfort codeine AdvReac Unknown stomach Verified 10/18/19 00:20 burning, nervous Home Medications Home Medications Medication Instructions Recorded Confirmed Type bupropion HCl 150 mg PO QAM 08/08/18 10/18/19 History cholecalciferol (vitamin D3) 5,000 unit PO QAM 08/08/18 10/18/19 History [Vitamin D3] fluoxetine 60 mg PO HS 08/08/18 10/18/19 History gabapentin 300 mg PO .MID DAY 08/08/18 10/18/19 History gabapentin 300 mg PO QAM 08/08/18 10/18/19 History hydrochlorothiazide 12.5 mg PO QAM 08/08/18 10/18/19 History hydroxychloroquine 400 mg PO QAM 08/08/18 10/18/19 History levothyroxine 75 mcg PO QAM 08/08/18 10/18/19 History lisinopril 10 mg PO QAM 08/08/18 10/18/19 History montelukast 10 mg PO QPM 08/08/18 10/18/19 History multivitamin 1 tab PO QAM 09/21/18 10/18/19 History ferrous gluconate 324 mg PO BID 10/18/19 10/18/19 History gabapentin 600 mg PO HS 10/18/19 10/18/19 History loratadine 10 mg PO DAILY PRN 10/18/19 10/18/19 History mometasone 1 spray INTRANASAL DAILY 10/18/19 10/18/19 History omeprazole 20 mg PO QAM 10/18/19 10/18/19 History Patient History Medical History Anemia chronic Asthma stable; no inhalers Depression Gastritis 09/2018 - started on PPI GERD (gastroesophageal reflux disease) occasional Hypertension Hypothyroidism Kidney disease, chronic, stage IV (GFR 15-29 ml/min) under surveillance; not on dialysis/GFR 39.5 on 08/2019 labs Morbid obesity Papillary thyroid carcinoma Polymyalgia rheumatica on hydroxychloroquine Surgical History H/O partial thyroidectomy (09/29/19) Left Thyroid Lobectomy Dr. Rossi 09/29/19 History of appendectomy History of cholecystectomy History of colonoscopy History of dental surgery dental implants History of endometrial ablation History of endoscopic sinus surgery x2 History of esophagogastroduodenoscopy (EGD) History of laparoscopy multiple--endometriosis History of nasal polypectomy x2 History of phacoemulsification of cataract of both eyes with intraocular lens implantation History of removal of cyst LEFT FOOT History of right hip replacement (Resolved) 12/19/18: SAB x1 attempt (patient had stated had had bupivacaine in the past without issue) at [facility] History of right oophorectomy History of tonsillectomy History of total left knee replacement (TKR) x2 History of total right knee replacement (TKR) History of wisdom tooth extraction Family History Mother Breast cancer Other Family history not known due to adoption Social History Preferred Language: [place] Communication Ability: Effective 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: No Beliefs That Will Affect Care: None marital status: marital status details: has boyfriend Current Living Situation: Family and Significant Other Current Living Situation Comment: and daughter current occupational status: retired 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 Other Information That Helps Us Care for You: No other: 2 adopted children Feels Safe at Home: Yes Safety Concerns: Feels Safe At This Time Smoking Status: Former smoker Tobacco Type: cigarettes ; packs per day: 1 ; Do You Dip or Chew Tobacco: No ; Smoking End Date: 1974 ; Second Hand Exposure: No ; Tobacco Cessation Education Requested by Patient: No Hx Alcohol Use: Yes Alcohol type: other Alcohol Intake Frequency: Holidays/Special Occasions Hx Substance Use: No Review of Systems Constitutional: no fever and no chills Eyes: no eye pain and no worsening vision Ear, Nose, Mouth, Throat: no problem reported Respiratory: no cough and no dyspnea Cardiovascular: no chest pain and no palpitations Gastrointestinal: as per Subjective / HPI Genitourinary: no problem reported Musculoskeletal: no joint pain and no swelling Integumentary: no rash and no lesions Neurologic: no problem reported Psychiatric: no problem reported Endocrine: no problem reported Physical Exam Constitutional: WD/WN, vitals as above Eyes: EOM intact bilaterally Neck: normal appearance Respiratory: normal respiratory effort, lungs clear to auscultation Cardiovascular: Rate/Rhythm: regular rate and regular rhythm Heart Sounds: no gallop and no murmur Gastrointestinal (Abdomen): Inspection/Auscultation: + hypoactive bowel sounds Percussion/Palpation: abdomen soft; abdomen nontender and no guarding Musculoskeletal: Extremities: extremities normal to inspection; no cyanosis no lower extremity edema Skin: no rashes, warm and dry Neurologic: moves all extremities Psychiatric: A+Ox3, euthymic affect Results & Data ([facility]) Vital Signs (Past 12 Hours) Vital Signs Temp Pulse Pulse Resp BP BP Pulse Ox 10/18/19 07:18 36.9 C 55 L 16 95/57 L 96 10/18/19 04:35 36.9 C 51 L 18 146/69 H 99 10/18/19 03:00 64 20 144/71 H 97 10/18/19 02:01 56 L 20 164/91 H 99 10/18/19 01:13 55 L 20 142/80 H 98 10/17/19 23:47 36.7 C 88 18 128/75 97 Laboratory Results Abnormal lab results 10/17/19 10/17/19 10/18/19 Range/Units 23:55 23:55 02:15 MPV 11.2 H (7.4-10.4) fL Neut # (Auto) 6.56 H (1.4-6.5) K/uL Wilkin # (Auto) 0.62 H (0.11-0.59) K/uL Chloride (98-107) mmol/L BUN 20 H (7-18) mg/dl Creatinine 1.56 H (0.6-1.2) mg/dl Glucose 122 H (70-99) mg/dl Calcium (8.5-10.1) mg/dl Albumin 3.3 L (3.4-5.0) gm/dl Ur Leukocyte Esterase 1+ H (Negative) Urine WBC (Auto) 5-10 H (0-5) /hpf U Epithel Cells (Auto) >30 H (0-5) /lpf 10/18/19 Range/Units 05:41 MPV (7.4-10.4) fL Neut # (Auto) (1.4-6.5) K/uL Wilkin # (Auto) (0.11-0.59) K/uL Chloride 112 H (98-107) mmol/L BUN 19 H (7-18) mg/dl Creatinine 1.25 H D (0.6-1.2) mg/dl Glucose 100 H (70-99) mg/dl Calcium 8.1 L (8.5-10.1) mg/dl Albumin 2.6 L (3.4-5.0) gm/dl Ur Leukocyte Esterase (Negative) Urine WBC (Auto) (0-5) /hpf U Epithel Cells (Auto) (0-5) /lpf PG Care Time/CCT Total # of Minutes Spent Total Time Spent with Patient: Total time spent is greater than 50% in coordination of care (as documented) at patient's floor/unit and/or counseling patient: Coding Level of Care Code 80361 Inpt Consult Level 4 Diagnoses Ileus K56.7 Abdominal pain R10.84 Abdominal location: generalized Abdominal ascites R18.8 Ascites type: other type (1) Abdominal ascites Ascites type: other type Qualified Code(s): R18.8 - Other ascites (2) Abdominal pain Abdominal location: generalized Qualified Code(s): R10.84 - Generalized abdominal pain
[2019-10-19] MEDS: SODIUM CHLORIDE 0.9% 1000ML 1,000 ML IV SCH ×2 (04:17→16:45)
--- NOTE | 2019-10-19 06:08 | Electrocardiogram Report ---
Test Reason : Blood Pressure : / mmHG Vent. Rate : 070 BPM Atrial Rate : 070 BPM P-R Int : 140 ms QRS Dur : 092 ms QT Int : 426 ms P-R-T Axes : 009 005 069 degrees QTc Int : 460 ms Normal sinus rhythm Normal ECG When compared with ECG of 17-SEP-2019 14:03, No significant change was found Confirmed by Lenin Davison ([id number]) on 10/19/2019 6:08:24 AM Referred By: Ibrahima Case Confirmed By:Lenin Davison
[2019-10-19 06:16] LABS: Basophils # (auto) 0.02 K/uL (0-0.2); Basophils % (auto) 0.4 %; Eosinophils # (auto) 0.79 K/uL (0-0.5); Eosinophils % (auto) 16.5 %; Hematocrit (blood only) 31.3 % (37-47); Hemoglobin 9.9 g/dL (12.0-16.0); Immature Granulocytes # (auto) 0.01 K/uL (0.00-0.02); Immature Granulocytes % (auto) 0.2 %; Lymphocytes # (auto) 1.82 K/uL (1.2-3.4); Mean Corpuscular Hgb Conc 31.6 g/dL (32-36); Mean Corpuscular Volume 88.4 fL (80-100); Mean Platelet Volume 10.6 fL (7.4-10.4); Monocytes # (auto) 0.34 K/uL (0.11-0.59); Monocytes % (auto) 7.1 %; Neutrophils # (auto) 1.81 K/uL (1.4-6.5); Neutrophils % (auto) 37.8 %; Platelet Count 216 K/uL (130-400); RDW Coefficient of Variation 14.5 % (11.5-14.5); RDW Standard Deviation 47.4 fL (36.4-46.3); Red Blood Count 3.54 M/uL (4.2-5.4); White Blood Count 4.79 K/uL (4.8-10.8)
[2019-10-19 06:22] LABS: Albumin Level 2.5 gm/dl (3.4-5.0); BUN Creatinine Ratio 11.8 (10-20); Calcium 8.5 mg/dl (8.5-10.1); Creatinine Clr Calc Pharmacy 58.9 ml/min; Est GFR (African American) 57.4; Est GFR (Non-African American) 49.6; Phosphorus 2.6 mg/dl (2.5-4.9); Potassium 4.2 mmol/L (3.5-5.1)
--- NOTE | 2019-10-19 07:54 | Hospitalist Progress Note ---
Date of Service October 19, 2019 Assessment & Plan (1) Ileus: - Ileus/enteritis/abdominal ascites/vomiting/chronic diarrhea/abnormal CT scan of small bowel- similar symptoms to admission from 08/15-08/20. - Cont NSS at 80 ml/hr - Zofran prn - Famotidine 20 mg IV q12h - NPO, getting abd series today to determine if pt has any obstructive features. High pitched tinkling heard on exam in the RUQ/epigastric region. Will consider advancing diet after this imaging is completed. Pt will likely require a colonoscopy as she hasn't had one of these as an outpt; concerning for other causes of obstruction including malignancy so checking CA-125. Possible that could be done here while she is in the hospital since NPO, but will need to determine if she can tolerate prep. Discussed with Brittney Mccartney PA-C with GI. - Encouraged ambulation - pt asked to at least walk one lap around in hallways as exercise and movement will help to resolve the ileus. - Suggested keeping a food log/diary to determine if there are exacerbating/trigger foods. Would avoid hard to digest foods such as popcorn, which could have precipitated this process. (2) Enteritis: See above (3) Abdominal ascites: See above - CA125 ordered, follow results - Stool studies ordered but pt has not had a BM yet (4) Vomiting: - Improved with NPO status, checking abd series as above (5) Chronic diarrhea: - See above - Patient reports diarrhea since age 15. (6) Abnormal CT scan, small bowel: - See above (7) GERD (gastroesophageal reflux disease): - Place on famotidine 20 mg IV q12h (8) Depression: - Continue bupropion, fluoxetine, and gabapentin (9) Polymyalgia rheumatica: - When able to take p.o., resume hydroxychloroquine (10) Hypertension: - For now, hold lisinopril and HCTZ - BP stable at 112/66 - HR low today at 53, not on any heather blockers that would be causing this. Monitor. (11) DVT prophylaxis: scds CODE: Full code Dispo: From home, likely to remain in the hospital x 1-2 days, possible need for colonoscopy while here. Admission and Anticipated Discharge Date Admission Date: October 18, 2019 Subjective The patient was seen and examined this morning. Pt states she is feeling a little better today. She has been tolerating chips of ice and small sips of water. She has not really ambulated much, so was encouraged to get up and walk about the hallway today. She still feels a right sided abdominal pain which is mild today. This is the same place where she has had previous abdominal pain, explaining to me that this is the 4th time she has had issues with ileus since August 2019. Previous abdominal surgeries include lap lorie and appendectomy at the same time in the early s. She also had one ovary removed in the mid 's. She recalls having adhesions in the past but did not require surgical lysis. No other abd surgeries. Her brother was on the phone with her during my visit, so he was updated. Review of Systems Review of Systems: Constitutional: No fever, sweats or chills Eyes: No diplopia, no worsening or blurred vision ENT: normal hearing, no trouble swallowing Respiratory: No cough, sputum, dyspnea at rest or on exertion Cardiovascular: No chest pain, tightness or palpitations Abdomen: + RUQ pain, no nausea, vomiting, diarrhea or constipation, + passing flatus Musculoskeletal: No joint pain, calf pain, swelling Neurologic: No weakness, numbness/tingling, or balance problems Psychiatric: No anxiety or depression Skin: No rash or itch Physical Exam Physical Exam: General: awake, alert, no apparent distress, +obese with BMI of 40.7 Head: Normocephalic, atraumatic ENT: PERRL, EOMI, no pharyngeal exudate, mucous membranes moist Chest: Clear to auscultation, on room air, no adventitious breath sounds Cardiac: Regular rate and rhythm, no murmur, no JVD, normal peripheral pulses, good capillary refill Abdominal: + Hypoactive throughout, +high pitched tinkling sound x 1-2 in the RUQ and epigastric region, soft, nondistended, + tenderness with deep palpation in the RUQ, no rebound or guarding Extremities: Normal inspection, no peripheral edema or erythema, calfs nontender to palpation Psych: Normal mood and affect Neuro: AAO x 3, no motor deficits, speech is clear, no peripheral sensory deficits Results & Data Results & Data ([facility]) Vital Signs (Past 12 Hours) Vital Signs Temp Pulse Resp BP Pulse Ox 10/18/19 22:58 36.5 C 52 L 14 127/73 96 PG Care Time/CCT Total # of Minutes Spent Total Time Spent with Patient: Total time spent is greater than 50% in coordination of care (as documented) at patient's floor/unit and/or counseling patient: Coding Level of Care Code 59922 Subseq Hosp Care Lvl 3 Diagnoses Ileus K56.7 Enteritis K52.9 Abdominal ascites R18.8 Ascites type: other type Vomiting R11.[address] diarrhea [address] scan, small bowel R93.3 GERD (gastroesophageal reflux disease) K21.9 Esophagitis presence: esophagitis presence not specified Depression F32.9 Depression Type: unspecified Polymyalgia rheumatica M35.3 Hypertension I10 Hypertension type: essential hypertension DVT prophylaxis Z29.9 (1) Abdominal ascites Ascites type: other type Qualified Code(s): R18.8 - Other ascites (2) Depression Depression Type: unspecified Qualified Code(s): F32.9 - Major depressive disorder, single episode, unspecified (3) GERD (gastroesophageal reflux disease) Esophagitis presence: esophagitis presence not specified Qualified Code(s): K 21.9 - Gastro-esophageal reflux disease without esophagitis (4) Hypertension Hypertension type: essential hypertension Qualified Code(s): I10 - Essential (primary) hypertension
[2019-10-19] MEDS: FAMOTIDINE 20 MG in SYRINGE 3 ML IV SCH ×2 (09:23→21:12)
[2019-10-19] MEDS: HEPARIN SOD 5,000 UNIT/0.5 ML VIAL SQ SCH ×2 (09:25→21:00)
--- NOTE | 2019-10-19 10:13 | Gastroenterology Progress Note ---
Date of Service October 19, 2019 Assessment & Plan (1) Ileus: (2) Abdominal pain: (3) Abdominal ascites: 1. Keep NPO for now. 2. Await stool studies and CA 125 as ordered. 3. Lisinopril has been held. 4. Abdominal series now. 5. Additional recommendations will be made pending results of testing. Thank you for allowing us to participate in the care of this patient. If you have questions or concerns, please do not hesitate to contact us. Admission and Anticipated Discharge Date Admission Date: October 18, 2019 Supervising Physician Co-Signing Physician Notes I personally evaluated the patient and agree with the findings as documented by FRANCISCO Diez Exam: abd: soft, RUQ tenderness, nd Subjective Patient states she was having RLQ pain overnight. Pain has abated this morning. No n/v or overt GIB symptoms. CA 125 is pending and stool studies have not been collected as has not had a bm. Passing flatus. No f/c. Review of Systems Constitutional: as per Subjective / HPI Respiratory: no cough and no dyspnea Cardiovascular: no chest pain and no dyspnea on exertion Gastrointestinal: as per Subjective / HPI Physical Exam Constitutional: WD/WN, vitals as above Eyes: EOM intact bilaterally Neck: normal visual inspection Respiratory: normal respiratory effort, lungs clear to auscultation Cardiovascular: Rate/Rhythm: regular rate and regular rhythm Heart Sounds: no murmur Gastrointestinal (Abdomen): Inspection/Auscultation: + high-pitched sounds (RLQ) and + hypoactive bowel sounds (remainder of abdomen quadrants) Musculoskeletal: Extremities: extremities normal to inspection Skin: no rashes, warm and dry Psychiatric: A+Ox3, euthymic affect Results & Data Results & Data ([facility]) Vital Signs (Past 12 Hours) Vital Signs Temp Pulse Resp BP Pulse Ox 10/19/19 07:55 36.9 C 53 L 16 112/66 98 10/18/19 22:58 36.5 C 52 L 14 127/73 96 PG Care Time/CCT Total # of Minutes Spent Total Time Spent with Patient: Total time spent is greater than 50% in coordination of care (as documented) at patient's floor/unit and/or counseling patient: Coding Level of Care Code 12487 Subseq Hosp Care Lvl 3 Diagnoses Ileus K56.7 Abdominal pain R10.84 Abdominal location: generalized Abdominal ascites R18.8 Ascites type: other type (1) Abdominal ascites Ascites type: other type Qualified Code(s): R18.8 - Other ascites (2) Abdominal pain Abdominal location: generalized Qualified Code(s): R10.84 - Generalized abdominal pain
--- NOTE | 2019-10-19 11:39 | XRay Report ---
XR abdomen 2V w PA chest HISTORY: 63 years-old Female RLQ pain and ileus acute right lower quadrant abdominal pain with ileus COMPARISON: Chest radiographs 09/17/2019, CT abdomen pelvis 10/18/2019 TECHNIQUE: PA view the chest with erect and supine views of the abdomen FINDINGS: Cardiac mediastinal and hilar silhouettes are within normal limits. Possible subcentimeter calcified granulomatous left midlung. No pneumothorax, pleural effusion, airspace consolidation or overt pulmon jamshid edema. Moderate hemidiaphragm elevation. Degenerative changes of the shoulders and spine. Cholecystectomy. There are a few scattered small bowel air-fluid levels within the central abdomen. B owel gas pattern is nonobstructive. No pneumatosis or pneumoperitoneum. Mildly dilated loop of small bowel within the abdominal left upper quadrant, 3.3 cm appears similar to comparison with apparent mi ld wall thickening. No urolith. Lumbar levoscoliosis. Multilevel degenerative changes of the lumbar s pine. Right hip total joint arthroplasty. No acute fracture. IMPRESSION: 1. Mild dilation and wall thickening is again noted involving a loop of small bowel within the abdomi nal left upper quadrant. Additionally, there are several scattered small bowel air-fluid levels throu ghout the abdomen. These findings likely represent a nonspecific enteritis. 2. Bowel gas pattern overall appears nonobstructive. 3. No pneumoperitoneum. 4. Cholecystectomy. 5. No acute processes of the chest. ACT 112: Negative or not required by law. The above report was generated using voice recognition software. It may contain grammatical, syntax o r spelling errors. Electronically signed by: Malachi Post M.D. 10/19/2019 11:38 AM
[2019-10-20] MEDS: SODIUM CHLORIDE 0.9% 1000ML 1,000 ML IV SCH ×2 (04:58→17:32)
[2019-10-20 06:11] LABS: Basophils # (auto) 0.02 K/uL (0-0.2); Basophils % (auto) 0.5 %; Eosinophils # (auto) 0.68 K/uL (0-0.5); Eosinophils % (auto) 16.4 %; Hematocrit (blood only) 29.4 % (37-47); Hemoglobin 9.6 g/dL (12.0-16.0); Lymphocytes # (auto) 1.52 K/uL (1.2-3.4); Lymphocytes % (auto) 36.7 %; Mean Corpuscular Hemoglobin 28.4 pg (25-34); Mean Corpuscular Hgb Conc 32.7 g/dL (32-36); Mean Platelet Volume 10.6 fL (7.4-10.4); Monocytes # (auto) 0.35 K/uL (0.11-0.59); Monocytes % (auto) 8.5 %; Neutrophils # (auto) 1.57 K/uL (1.4-6.5); Neutrophils % (auto) 37.9 %; Platelet Count 194 K/uL (130-400); RDW Coefficient of Variation 14.2 % (11.5-14.5); Red Blood Count 3.38 M/uL (4.2-5.4); White Blood Count 4.14 K/uL (4.8-10.8)
[2019-10-20 06:48] LABS: Albumin Level 2.6 gm/dl (3.4-5.0); BUN Creatinine Ratio 11.5 (10-20); Calcium 8.9 mg/dl (8.5-10.1); Creatinine Clr Calc Pharmacy 64.4 ml/min; Est GFR (Non-African American) 55.2; Phosphorus 2.7 mg/dl (2.5-4.9); Potassium 3.5 mmol/L (3.5-5.1)
[2019-10-20] MEDS: FAMOTIDINE 20 MG in SYRINGE 3 ML IV SCH ×3 (09:26→20:24)
[2019-10-20] MEDS: HEPARIN SOD 5,000 UNIT/0.5 ML VIAL SQ SCH ×3 (09:26→20:29)
[2019-10-20] MEDS ORDERED: MULTIVITAMIN TAB PO SCH (10:00)
[2019-10-20] MEDS ORDERED: CHOLECALCIFEROL 1,000 UNITS 25 MCG TAB PO SCH (10:00)
[2019-10-20] MEDS ORDERED: lisinopriL 10 MG TAB PO SCH (10:00)
[2019-10-20] MEDS ORDERED: GABAPENTIN 300 MG CAP PO SCH ×3 (10:00→14:00)
[2019-10-20] MEDS ORDERED: PANTOprazole 40 MG TAB PO SCH (10:00)
[2019-10-20] MEDS ORDERED: BuPROPion SR 150 MG TABCR PO SCH (10:00)
[2019-10-20] MEDS ORDERED: LEVOTHYROXINE SODIUM 75 MCG TABLET PO SCH (10:00)
--- NOTE | 2019-10-20 10:36 | Gastroenterology Progress Note ---
Date of Service October 20, 2019 Assessment & Plan (1) Ileus: (2) Abdominal pain: (3) Abdominal ascites: 1. Clear liquid diet. 2. Await stool studies as ordered. 3. Lisinopril has been held. 4. Discussed transfer to tertiary center with FRANCISCO Dudley for consideration of double balloon enteroscopy. Thank you for allowing us to participate in the care of this patient. If you have questions or concerns, please do not hesitate to contact us. Admission and Anticipated Discharge Date Admission Date: October 18, 2019 Subjective Patient reports not feeling well today. States she has been having generalized pains and no appetite. No significant abdominal pain. Tolerating clear liquids. H&H dropped slightly to 9.6/29.4. Reports mild diarrhea this morning. Stool boo dies pending. Review of Systems Constitutional: + fatigue Respiratory: no cough and no dyspnea Cardiovascular: no chest pain and no palpitations Gastrointestinal: as per Subjective / HPI Musculoskeletal: as per Subjective / HPI Physical Exam Constitutional: WD/WN, vitals as above Eyes: EOM intact bilaterally Neck: normal visual inspection Respiratory: normal respiratory effort, lungs clear to auscultation Cardiovascular: Rate/Rhythm: regular rate and regular rhythm Heart Sounds: no gallop and no murmur Gastrointestinal (Abdomen): Percussion/Palpation: abdomen soft; abdomen non tender Musculoskeletal: Extremities: extremities normal to inspection; no cyanosis Skin: no rashes, warm and dry Neurologic: moves all extremities Psychiatric: A+Ox3, euthymic affect Results & Data Results & Data ([facility]) Vital Signs (Past 12 Hours) Vital Signs Temp Pulse Pulse Resp BP Pulse Ox 10/20/19 09:06 36.9 C 46 L 16 154/60 H 99 10/20/19 07:01 36.9 C 46 L 18 118/61 97 10/19/19 22:39 37 C 54 L 18 122/64 95 PG Care Time/CCT Total # of Minutes Spent Total Time Spent with Patient: Total time spent is greater than 50% in coordination of care (as documented) at patient's floor/unit and/or counseling patient: Coding Level of Care Code 51730 Subseq Hosp Care Lvl 3 Diagnoses Ileus K56.7 Abdominal pain R10.84 Abdominal location: generalized Abdominal ascites R18.8 Ascites type: other type (1) Abdominal ascites Ascites type: other type Qualified Code(s): R18.8 - Other ascites (2) Abdominal pain Abdominal location: generalized Qualified Code(s): R10.84 - Generalized abdominal pain
--- NOTE | 2019-10-20 14:21 | Discharge Summary ---
Date of Service October 20, 2019 Admission HPI Per Admitting Provider The patient is a 63-year-old female with a past medical history including chronic diarrhea, GERD, dyspepsia, IBS, enteritis, CKD stage III yea, morbid obesity with BMI 40.0-44.9, papillary thyroid carcinoma, asthma, PMR, hypothyroidism, hypertension and depression. She was most recently admitted to [facility] from 08/15-08/20 for enteritis with ascites, which was treated conservatively. She underwent small bowel endoscopy on 09/[address] Oro from gastroenterology. The following day on 09/28 she underwent a left partial thyroid lobectomy for diagnosis of papillary thyroid cancer. She reports that she has had diarrhea since age 15. Her symptoms have never really completely returned to will be considered normal stool character. This most recent episode occurred after she ate a large bag of popcorn. CT scan of abdomen and pelvis while in the ED tonight showed what was most likely an ileus with the presence of ascites, which was not directly compared in volume by radiology to the CT from 08/15. Principal Diagnosis Enteritis Discharge Exam Constitutional WD/WN, vitals as above Respiratory normal respiratory effort, lungs clear to auscultation Cardiovascular RRR, no murmur, no edema Gastrointestinal (Abdomen) Inspection/Auscultation: abdomen normal to inspection; abdomen not distended Percussion/Palpation: + abdomen tender and abdomen soft; no guarding Musculoskeletal no cyanosis or clubbing, extremities motor strength 5/5 Skin no rashes, warm and dry Neurologic moves all extremities and awake Psychiatric A+Ox3, euthymic affect Discharge Data Allergies Allergy/AdvReac Type Severity Reaction Status Date / Time NSAIDS (Non-Steroidal Allergy Severe advised to Verified 10/18/19 00:20 Anti-Inflamma avoid d/t kidney disease adhesive Allergy Mild Rash Verified 10/18/19 00:20 latex Allergy Mild skin Verified 10/18/19 00:20 irritation nickel Allergy Mild redness Verified 10/18/19 00:20 and puffiness mushroom Allergy Unknown Vomiting Verified 10/18/19 14:39 procaine Allergy Unknown shaking Verified 10/18/19 00:20 and increased peeing with novacaine aspirin AdvReac Mild Gastrointestinal Verified 10/18/19 00:20 Upset clarithromycin AdvReac Mild abdominal Verified 10/18/19 00:20 discomfort codeine AdvReac Unknown stomach Verified 10/18/19 00:20 burning, nervous Consultations 10/18/19 02:01 ED Decision to Admit Stat 10/18/19 03:58 Consult Case Management - Discharge Planning Routine Consult Gastroenterology Routine 10/20/19 12:07 Burn CD for patient Routine Ordered Studies 10/18/19 00:06 CT abd pelvis IV con only Urgent Hospital Course (1) Ileus: - Ileus/enteritis/abdominal ascites/vomiting/chronic diarrhea/abnormal CT scan of small bowel- similar symptoms to admission from 08/15-08/20. - Provided IVF, zofran, famotidine -Clear liquid diet - abd series without obstruction, non specific enteritis. - Pt will likely require a colonoscopy as she hasn't had one of these as an ou tpt; concerning for other causes of obstruction including malignancy - CA-125 was elevated at 42. - Will need to transfer to tertiary care for further workup per GI (2) Enteritis: See above (3) Abdominal ascites: See above - CA125 elevated - Stool studies ordered but pt has not had a BM yet (4) Vomiting: - Improved with NPO status (5) Chronic diarrhea: - See above - Patient reports diarrhea since age 15. (6) Abnormal CT scan, small bowel: - See above (7) GERD (gastroesophageal reflux disease): - famotidine 20 mg IV q12h (8) Depression: - Continue bupropion, fluoxetine, and gabapentin (9) Polymyalgia rheumatica: - Continue hydroxychloroquine (10) Hypertension: - For now, hold lisinopril, continue HCTZ - BP stable at 112/66 (11) DVT prophylaxis: scds CODE: Full code Dispo: transfer to [facility] Total Time Total Time Spent Total Time Spent (In Minutes): greater than 30 minutes Discharge Plan Discharge Items Patient Disposition: Transfer Acute Care Hospital Reason For Visit: ILEUS, ASCITES Discharge Diagnosis: Ileus, ascites Activity: Resume your previous activity Non-emergency contact: Primary Care Provider Call non-emergency contact if: you have any medication questions Follow-up/Referrals: Kaylee Romano MD [Primary Care Provider] - Diet: Clear liquid Addtl Attending Provider Instructions: (1) Ileus: - Ileus/enteritis/abdominal ascites/vomiting/chronic diarrhea/abnormal CT scan of small bowel- similar symptoms to admission from 08/15-08/20. - GI series showed non specific enteritis, non obstructive (2) Enteritis: See above (3) Abdominal ascites: See above - CA125 elevated at 42 - Stool studies pending (4) Depression: - Continue bupropion, fluoxetine, and gabapentin (5) Polymyalgia rheumatica: - continue hydroxychloroquine (6) Hypertension: - lisinopril held per GI, continue hctz (11) Hypothyroid TSH 6.15 T4 wnl. Patient had recent partial thyroidectomy (11) DVT prophylaxis: scds CODE: Full code Pending Studies at Discharge: No Stand-Alone Forms: [employer] [facility] [employer], Smoking Cessation Skilled Items Lines: Saline Lock Urinary Catheter: No Medications and DC Order Prescriptions: Continued levothyroxine 75 mcg tablet 75 mcg PO QAM RF: 0 hydrochlorothiazide 12.5 mg capsule 12.5 mg PO QAM RF: 0 gabapentin 300 mg capsule 300 mg PO .MID DAY RF: 0 montelukast 10 mg tablet 10 mg PO QPM RF: 0 hydroxychloroquine 200 mg tablet 400 mg PO QAM RF: 0 fluoxetine 20 mg capsule 60 mg PO HS RF: 0 bupropion HCl 150 mg tablet sustained-release 12 hr 150 mg PO QAM RF: 0 gabapentin 300 mg Capsule 300 mg PO QAM RF: 0 cholecalciferol (vitamin D3) [Vitamin D3] 5,000 unit Tablet 5,000 unit PO QAM RF: 0 ferrous gluconate 324 mg (38 mg iron) tablet 324 mg PO BID RF: 0 gabapentin 600 mg tablet 600 mg PO HS RF: 0 mometasone 50 mcg/actuation spray,non-aerosol 1 spray intranasal DAILY RF: 0 omeprazole 20 mg tablet,delayed release (DR/EC) 20 mg PO QAM RF: 0 loratadine 10 mg Tablet 10 mg PO DAILY PRN (Reason: Allergy Symptoms) RF: 0 multivitamin Tablet 1 tab PO QAM RF: 0 Discontinued lisinopril 10 mg tablet 10 mg PO QAM RF: 0 Discharge Orders: Discharge Order (Routine); Ordered 10/20/19 Ordered By: Tori Miller/Other Patient Handouts: Low-Fiber Diet Admission Data Admit Date/Time: 10/18/19 03:18 Attending Provider: Jimmy Thompson Admit Provider: Manuel Pollack Primary Care Provider: Kaylee Romano Other Providers: Manuel Pollack ; Ibrahima Oro Other Interventions: Discharge Summary Assessment (RN) Last Done: 10/20/19 23:14 DC Date/Time DO NOT enter until pt leaves facility: 10/20/19 23:17 Supervising Physician Co-Signing Physician Notes Attending note: patient seen and examined with Tori SINGH. I agree with her discharge summary. I personally reviewed the labs and imaging findings. patient with ongoing GI issues, diarrhea, ascites CT with enteritis GI recommends transfer to [facility] for double balloon enteroscopy, patient agrees - Enteritis: patient stable, will transfer to [facility] for further work up as this issues has been ongoing for a few weeks Coding Level of Care Code D/C Day Management >30 mins Diagnoses Ileus K56.7 Enteritis K52.9 Abdominal ascites R18.8 Ascites type: other type Vomiting R11.10 Chronic diarrhea K52.[address] scan, small bowel R93.3 GERD (gastroesophageal reflux disease) K21.9 Esophagitis presence: esophagitis presence not specified Depression F32.9 Depression Type: unspecified Polymyalgia rheumatica M35.3 Hypertension I10 Hypertension type: essential hypertension DVT prophylaxis Z29.9
[2019-10-20] MEDS ORDERED: FLUOXETINE HCL 20 MG CAP PO SCH (21:00)
[2019-10-20] MEDS ORDERED: GABAPENTIN 600 MG TAB PO SCH (21:00)
--- NOTE | 2019-10-21 05:52 | Electrocardiogram Report ---
Test Reason : Blood Pressure : / mmHG Vent. Rate : 045 BPM Atrial Rate : 045 BPM P-R Int : 150 ms QRS Dur : 102 ms QT Int : 510 ms P-R-T Axes : 036 024 056 degrees QTc Int : 441 ms Sinus bradycardia Otherwise normal ECG When compared with ECG of 17-OCT-2019 23:54, Vent. rate has decreased BY 25 BPM Confirmed by Lenin Davison ([id number]) on 10/21/2019 5:52:23 AM Referred By: Ibrahima Case Confirmed By:Lenin Davison
[2019-10-21] MEDS ORDERED: HYDROXYCHLOROQUINE SULFATE 200 MG TAB PO SCH (09:00)
[2019-10-21] MEDS ORDERED: hydroCHLOROthiazide 25 MG TAB PO SCH (09:00)
== END 2019-10-20 23:17 | disposition short-term general hospital (02) ==
LOC: ED 23:44 → 3N 10-18 03:18 → SUATTDRO 10-18 03:18 → INTOOBSV 10-18 03:18 → 3N 10-18 03:44